=== PATIENT | female | born 1930 | race Caucasian/White ===

== ENCOUNTER 2016-12-07 17:11 | Inpatient (IN) | payer OTHER ==
--- NOTE | 2016-12-07 17:31 | PDOC ---
History of Present Illness - General History Source: Patient Exam Limitations: No Limitations - History of Present Illness Initial Comments: 12/07/16 18:28 Patient is a 86 year old female with a significant past medical history of DM, thyroid disease, hypertension and hyperlipidemia who presents to the ED with a complaint of abdominal pain, nausea and vomiting. Patient reports intermittent sharp stabbing abdominal pain localized to the lower/mid abdomen that radiates throughout the abdomen. Patient states that she is unable to pass any gas. Patient reports 4 episodes of vomiting during the night and multiple episodes today, non bilious non bloody. Patient notes that she had kielbasy and shredded cabbage at noon yesterday. She states that her last bowel movement was today she denies any constipation. She notes that she had diarrhea all last week and she has history of loose stools. She denies fever or chills. No prior abdominal surgery. Allergy - oxycodone, penicillin PCP - Dr. Piper <Asia Schwarz - Last Filed: 12/07/16 19:03> - General History Source: Patient Exam Limitations: No Limitations <Abby Laurent - Last Filed: 12/08/16 10:48> - General Chief Complaint: Pain, Acute Stated Complaint: ABDOMINAL PAIN/VOMITING Time Seen by Provider: 12/07/16 17:15 Past History <Asia Schwarz - Last Filed: 12/07/16 19:03> - Past Medical History Anemia: No Asthma: No Cancer: No Cardiac Disorders: No CVA: No COPD: No CHF: No Dementia: No Diabetes: Yes (DX 1989) GI Disorders: No Disorders: No HTN: Yes (DX 2003) Hypercholesterolemia: Yes (DX 2003) Liver Disease: No Seizures: No Thyroid Disease: Yes (HYPOTHYROIDISM) - Surgical History Abdominal Surgery: No Appendectomy: No Cardiac Surgery: No Cholecystectomy: No Lung Surgery: No Neurologic Surgery: No Orthopedic Surgery: Yes (EPIDURAL STERIOD INJECTION) - Psycho/Social/Smoking Cessation Hx Anxiety: No Suicidal Ideation: No Smoking History: Former smoker Have you smoked in the past 12 months: No If you are a former smoker, when did you quit?: 1989 Information on smoking cessation initiated: No Hx Alcohol Use: Yes (RARE) Drug/Substance Use Hx: No Substance Use Type: None Hx Substance Use Treatment: No <Abby Laurent - Last Filed: 12/08/16 10:48> - Past Medical History Allergies/Adverse Reactions: Allergies Allergy/AdvReac Type Severity Reaction Status Date / Time Penicillins Allergy Intermediate rash Verified 12/07/16 17:18 poison alexandria extract Allergy Intermediate Rash Verified 12/07/16 17:18 [Poison [place] Extract] Bee stings Allergy Severe Swelling Uncoded 02/07/15 13:55 TAE Allergy Mild Swelling Uncoded 02/07/15 13:55 Home Medications: Ambulatory Orders Aspirin [Aspir-Low] 81 mg PO DAILY 11/07/14 Multivitamin [Daily Vitamin] 1 each PO DAILY tablet 11/07/14 Atorvastatin Ca [Lipitor] 10 mg PO HS 12/07/16 Levothyroxine [Synthroid -] 25 mcg PO DAILY 12/07/16 Metformin HCl 2 tab PO ASDIR 12/07/16 Review of Systems - Review of Systems Able to Perform ROS?: Yes Comments:: 12/07/16 18:29 GENERAL/CONSTITUTIONAL: No: fever, chills, weakness, loss of appetite. HEAD, EYES, EARS, NOSE AND THROAT: No: change in vision, ear pain, discharge, sore throat, throat swelling. CARDIOVASCULAR: No: chest pain, lightheadedness, palpitations, syncope RESPIRATORY: No: cough, shortness of breath, wheezing, hemoptysis, stridor. GASTROINTESTINAL: +nausea, vomiting, abdominal pain No: diarrhea, rectal bleeding, constipation. GENITOURINARY: No: dysuria, hematuria, frequency, urgency, flank pain. MUSCULOSKELETAL: No: back pain, neck pain, joint pain, muscle swelling or pain SKIN: No: lesions, pallor, rash or easy bruising. NEUROLOGIC: No: headache, vertigo, paresthesias, weakness ENDOCRINE: No: unexplained weight gain or loss HEMATOLOGIC/LYMPHATIC: No: anemia, easy bleeding, swelling nodes <Asia Schwarz - Last Filed: 12/07/16 19:03> *Physical Exam - Vital Signs Last Vital Signs Temp Pulse Resp BP Pulse Ox 98.4 F 109 H 18 133/70 96 12/07/16 17:14 12/07/16 17:14 12/07/16 17:14 12/07/16 17:14 12/07/16 17:14 - Physical Exam Comments: 05/01/17 18:29 GENERAL: The patient is in no acute distress. HEAD: Normal with no signs of trauma. EYES: PERRLA, EOMI, sclera anicteric, conjunctiva clear. ENT: Ears normal, nares patent, oropharynx clear without exudates. Moist mucous membranes. NECK: Normal range of motion, supple without lymphadenopathy, JVD, or masses. LUNGS: Breath sounds equal, clear to auscultation bilaterally. No wheezes, and no crackles. HEART:Regular rate and rhythm, normal S1 and S2 without murmur, rub or gallop. ABDOMEN: +Lower abdominal tenderness upon palpation, +abdominal distention. Soft , normoactive bowel sounds. No guarding, no rebound. EXTREMITIES: +trace lower extremity edema. Normal range of motion. No clubbing or cyanosis. No erythema, or tenderness. NEUROLOGICAL: Cranial nerves II through XII grossly intact. Normal speech. No focal neurological deficits. MUSCULOSKELETAL: Back nontender to palpation, no CVA tenderness SKIN: Warm, Dry, normal turgor, no rashes or lesions noted. <Asia Schwarz - Last Filed: 12/07/16 19:03> - Vital Signs Last Vital Signs Temp Pulse Resp BP Pulse Ox 18 0/0 12/07/16 17:14 12/07/16 17:14 <Abby Laurent - Last Filed: 12/08/16 10:48> ED Treatment Course - LABORATORY CBC & Chemistry Diagram: 12/07/16 18:10 12/07/16 18:10 <Asia Schwarz - Last Filed: 12/07/16 19:03> - LABORATORY CBC & Chemistry Diagram: 12/08/16 06:15 12/08/16 06:15 <Abby Laurent - Last Filed: 12/08/16 10:48> Medical Decision Making - Medical Decision Making 12/07/16 17:31 A portion of this note was documented by scribe services under my direction. I have reviewed the details of the note, within reason, and agree with the documentation with the following case summary and management plan written by me. Nursing documentation reviewed and incorporated into medical decision making 12/07/16 19:00 This is an 86-year-old female with a history of diabetes, hypertension, hyperlipidemia, hypothyroidism who presents emergency department with a complaint of abdominal pain. Patient states that her symptoms began last evening. At that time she noted epigastric pain, subsequent to that she noted diffuse abdominal pain. She has had nausea and vomiting, particularly with attempting to have any oral intake. No fevers, no chills. Patient had a small bowel movement this morning. Patient denies prior abdominal surgery On examination: Patient has abdominal distention Lower abdominal tenderness to palpation. No involuntary guarding or rebound. Patient has trace lotion be edema. DD: colitis, enteritis, gastroenteritis, obstruction, gastritis, gastric ulcer, diverticulitis, ACS Will do labs Will give pain medications Will do xray (r/o SBO) Will do CT 12/07/16 19:02 Initially ordered for Morphine but pt has an anaphylactic response to oxycodone XRay demonstrates bowel gas in the center the the abdomen, paucity of gas else where, concerning for sbo Pt asked NOT to push herself to drink the contrast if it makes her very nauseaous despite Zofran 12/07/16 19:04 Laboratory Tests 12/07/16 18:10 WBC 9.9 D Hgb 12.7 Hct 38.7 Plt Count 443 H Neutrophils % 76.5 Lymphocytes % 14.0 D Pt signed out to Dr. Asif Pending CMP, CT abd and pelvis <Abby Laurent - Last Filed: 12/08/16 10:48> *DC/Admit/Observation/Transfer - Attestations Scribe Attestion: 12/07/16 18:30 Documentation prepared by ASHLEE Bauer, acting as medical record technician for Abby Laurent MD. <Asia Schwarz - Last Filed: 12/07/16 19:03> <Abby Laurent - Last Filed: 12/08/16 10:48> Diagnosis at time of Disposition: Small bowel obstruction - Discharge Dispostion Condition at time of disposition: Fair
[2016-12-07] MEDS ORDERED: morphine CARPU-JECT 4 MG/1 ML DISP.SYRIN IVPUSH ONE (18:10)
[2016-12-07] MEDS ORDERED: SODIUM CHLORIDE 1,000 ML IV STA (18:10)
[2016-12-07] MEDS ORDERED: ONDANSETRON 4 MG/2 ML VIAL IVPUSH ONE (18:10)
[2016-12-07] MEDS ORDERED: morphine CARPU-JECT 10 MG/1 ML DISP.SYRIN ONE ×2 (18:33→21:36)
[2016-12-07] MEDS ORDERED: ONDANSETRON 4 MG/2 ML VIAL ONE (18:33)
[2016-12-07 18:53] LABS: BASOPHIL 0.2 % (0-2.0); EOSINOPHIL 0.4 % (0-4.5); MCH 27.7 pg (25.7-33.7); MCHC 32.8 g/dl (32.0-36.0); MEAN CELL VOLUME 84.3 fl (80-96); MEAN PLT VOLUME 8.4 fl (7.5-11.1); NEUTROPHILS 76.5 % (42.8-82.8); PLATELET COUNT 443 K/MM3 (134-434); RDW 13.8 % (11.6-15.6); WHITE BLOOD COUNT 9.9 K/mm3 (4.0-10.8)
[2016-12-07 19:02] LABS: ALBUMIN 3.7 g/dl (3.5-5.0); ALK PHOS 46 U/L (32-92); AMYLASE 110 U/L (25-125); ANION GAP 11 (8-16); BILIRUBIN,TOTAL 0.7 mg/dl (0.2-1.0); CALCIUM 9.6 mg/dl (8.4-10.2); CO2 21 mmol/L (22-28); CREATININE 0.9 mg/dl (0.6-1.3); GLUCOSE,RANDOM 172 mg/dl (74-106); SGOT/AST 23 U/L (10-42); SGPT/ALT 16 U/L (10-40); TOT PROT 6.7 g/dl (6.4-8.3)
[2016-12-07 19:15] LABS: CPK(DFH) 69 IU/L (26-140)
--- NOTE | 2016-12-07 19:26 | PDOC ---
*Physical Exam - Vital Signs Last Vital Signs Temp Pulse Resp BP Pulse Ox 98.4 F 109 H 18 133/70 96 12/07/16 17:14 12/07/16 17:14 12/07/16 17:14 12/07/16 18:40 12/07/16 17:14 ED Treatment Course - LABORATORY CBC & Chemistry Diagram: 12/07/16 18:10 12/07/16 18:10 - ADDITIONAL ORDERS Additional order review: Laboratory Results 12/07/16 12/07/16 18:10 18:10 Sodium 136 Potassium 4.3 Chloride 104 Carbon Dioxide 21 L Anion Gap 11 BUN 13 Creatinine 0.9 Creat Clearance w eGFR 59.65 Random Glucose 172 H D Calcium 9.6 Total Bilirubin 0.7 D AST 23 D ALT 16 Alkaline Phosphatase 46 Creatine Kinase 69 Total Protein 6.7 Albumin 3.7 Total Amylase 110 12/07/16 18:10 RBC 4.60 MCV 84.3 MCHC 32.8 RDW 13.8 MPV 8.4 Neutrophils % 76.5 Lymphocytes % 14.0 D Monocytes % 8.9 Eosinophils % 0.4 Basophils % 0.2 - Medications Given in the ED: ED Medications Discontinued Medications Generic Name Dose Route Start Last Admin Trade Name Freq PRN Reason Stop Dose Admin Morphine Sulfate 2 mg 12/07/16 18:10 12/07/16 18:40 Morphine Injection - IVPUSH 12/07/16 18:11 Not Given ONCE ONE Ondansetron HCl 4 mg 12/07/16 18:10 12/07/16 18:40 Zofran Injection IVPUSH 12/07/16 18:11 4 mg ONCE ONE Administration Medical Decision Making - Medical Decision Making 12/07/16 19:26 The patient is signed out to me from Dr. Laurent. 86y F hx of DM, thyroid disease, htn, hl, presents with complaint of abdominal pain n/v. pts vitals noted for mld tachycardia abd xray possible obstructio pt awaiting CT, currently drinking contrast resting comfortably in no acute distress, mildly distended abdomen 12/07/16 20:38 CT c/w high grade partial SBO will admit for further management Will notify hospitliast service 12/07/16 21:[address] Olivarez requested NGT and possible transfer to [place] in case she needs surgery as has a virgin abdomen. 12/07/16 22:27 case dw LEI Smith agree with admission for further managemnt of SBO will admit under dr Smith service in med/surg 12/07/16 22:36 pt declines NGT at this time Case discussed in detail with admitting physician including history, physical exam and ancillary studies. Admitting physician has assumed care for the patient, will follow all pending diagnostics and will complete the evaluation and treatment. *DC/Admit/Observation/Transfer Diagnosis at time of Disposition: Small bowel obstruction - Discharge Dispostion Condition at time of disposition: Fair Admit: Yes
[2016-12-07 19:35] LABS: TROPONIN I (DFP) < 0.03 ng/ml (0.03-0.50)
[2016-12-07 19:52] LABS: URINE APPEARANCE Clear; URINE BILIRUBIN Negative (NEGATIVE); URINE BLOOD Negative (NEGATIVE); URINE GLUCOSE (UA) Negative (NEGATIVE); URINE KETONE Negative (NEGATIVE); URINE NITRITE Negative (NEGATIVE); URINE PROTEIN Negative (NEGATIVE); URINE UROBILINOGEN 0.2 E.U/dl (0.2-1.0)
[2016-12-07 19:57] LABS: URINE COLOR YELLOW; URINE LEUK ESTERASE 1+ (NEGATIVE)
[2016-12-07] MEDS ORDERED: morphine CARPU-JECT 2 MG/1 ML DISP.SYRIN IVPUSH ONE (21:35)
--- NOTE | 2016-12-07 21:40 | HP ---
CHIEF COMPLAINT: Abdomen Pain, Nausea & Vomiting PCP: Dr. Piper HISTORY OF PRESENT ILLNESS: This is a 86 y/o female with a past medical history of Hypertension, Diabetes, Hyperlipidemia, Hypothyroid. Who presents to the emergency department with abdominal pain with nausea and vomiting x today. Patient reports the quality of the pain as sharp, with cramping. She reports vomiting x2 undigested food. Patient reports having a small BM earlier in the day. Patient denies fever, chills, cough, dizziness, CP, diarrhea, dysuria ER course was notable for: (1) Abdominal Xray- Dilated Loops (2) CTAP- Partial high Grade SBO (3) Lipase 320 Recent Travel: None PAST MEDICAL HISTORY: See HPI PAST SURGICAL HISTORY: Hysterectomy L- shoulder Social History: Smoking: Former Alcohol: None Drugs: None Family History: Non-Contributory Allergies Penicillins Allergy (Intermediate, Verified 12/07/16 17:18) rash poison alexandria extract [Poison [place] Extract] Allergy (Intermediate, Verified 17:18) Rash Bee stings Allergy (Severe, Uncoded 02/07/15 13:55) Swelling TAE Allergy (Mild, Uncoded 02/07/15 13:55) Swelling HOME MEDICATIONS: Home Medications Medication Instructions Recorded Aspirin [Aspir-Low] 81 mg PO DAILY 11/07/14 Multivitamin [Daily Vitamin] 1 each PO DAILY tablet 11/07/14 Atorvastatin Ca [Lipitor] 10 mg PO HS 12/07/16 Levothyroxine [Synthroid -] 25 mcg PO DAILY 12/07/16 Metformin HCl 2 tab PO ASDIR 12/07/16 REVIEW OF SYSTEMS CONSTITUTIONAL: Absent: fever, chills, diaphoresis, generalized weakness, malaise, loss of appetite, weight change HEENT: Absent: rhinorrhea, nasal congestion, throat pain, throat swelling, difficulty swallowing, mouth swelling, ear pain, eye pain, visual changes CARDIOVASCULAR: Absent: chest pain, syncope, palpitations, irregular heart rate, lightheadedness , peripheral edema RESPIRATORY: Absent: cough, shortness of breath, dyspnea with exertion, orthopnea, wheezing, stridor, hemoptysis GASTROINTESTINAL:abdominal pain, abdominal distension, nausea, vomiting Absent: diarrhea, constipation, melena, hematochezia GENITOURINARY: Absent: dysuria, frequency, urgency, hesitancy, hematuria, flank pain, genital pain MUSCULOSKELETAL: Absent: myalgia, arthralgia, joint swelling, back pain, neck pain SKIN: Absent: rash, itching, pallor HEMATOLOGIC/IMMUNOLOGIC: Absent: easy bleeding, easy bruising, lymphadenopathy, frequent infections ENDOCRINE: Absent: unexplained weight gain, unexplained weight loss, heat intolerance, cold intolerance NEUROLOGIC: Absent: headache, focal weakness or paresthesias, dizziness, unsteady gait, seizure, mental status changes, bladder or bowel incontinence PSYCHIATRIC: Absent: anxiety, depression, suicidal or homicidal ideation, hallucinations. PHYSICAL EXAMINATION Vital Signs - 24 hr 12/07/16 12/07/16 17:14 18:40 Temperature 98.4 F Pulse Rate 109 H Respiratory 18 Rate Blood Pressure 133/70 133/70 O2 Sat by Pulse 96 Oximetry (%) GENERAL: Awake, alert, and fully oriented, in no acute distress. HEAD: Normal with no signs of trauma. EYES: Pupils equal, round and reactive to light, extraocular movements intact, sclera anicteric, conjunctiva clear. No lid lag. EARS, NOSE, THROAT: Dry mucous membranes. Ears normal, nares patent, oropharynx clear without exudates. NECK: Normal range of motion, supple without lymphadenopathy, JVD, or masses. LUNGS: Breath sounds equal, clear to auscultation bilaterally. No wheezes, and no crackles. No accessory muscle use. HEART: Regular rate and rhythm, normal S1 and S2 without murmur, rub or gallop. ABDOMEN: Soft, generalized tenderness, distended, hypoactive bowel sounds, no guarding, no rebound, no masses. No hepatomegaly or splenomegaly. MUSCULOSKELETAL: Normal range of motion at all joints. No bony deformities or tenderness. No CVA tenderness. UPPER EXTREMITIES: 2+ pulses, warm, well-perfused. No cyanosis. No clubbing. No peripheral edema. LOWER EXTREMITIES: 2+ pulses, warm, well-perfused. No calf tenderness. L > R Bilateral peripheral edema. NEUROLOGICAL: Cranial nerves II-XII intact. Normal speech. Normal gait. PSYCHIATRIC: Cooperative. Good eye contact. Appropriate mood and affect. SKIN: Warm, dry, normal turgor, no rashes or lesions noted, normal capillary refill. Laboratory Results - last 24 hr 3 12/07/16 12/07/16 12/07/16 18:10 18:10 18:10 WBC 9.9 D RBC 4.60 Hgb 12.7 Hct 38.7 MCV 84.3 MCHC 32.8 RDW 13.8 Plt Count 443 H MPV 8.4 Neutrophils % 76.5 Lymphocytes % 14.0 D Monocytes % 8.9 Eosinophils % 0.4 Basophils % 0.2 Sodium 136 Potassium 4.3 Chloride 104 Carbon Dioxide 21 L Anion Gap 11 BUN 13 Creatinine 0.9 Creat Clearance w eGFR 59.65 Random Glucose 172 H D Calcium 9.6 Total Bilirubin 0.7 D AST 23 D ALT 16 Alkaline Phosphatase 46 Creatine Kinase 69 Troponin I < 0.03 L Total Protein 6.7 Albumin 3.7 Total Amylase 110 Lipase 320 H Urine Color Urine Appearance Urine pH Ur Specific [place] Urine Protein Urine Glucose (UA) Urine Ketones Urine Blood Urine Nitrite Urine Bilirubin Urine Urobilinogen Ur Leukocyte Esterase 3 12/07/16 19:40 WBC RBC Hgb Hct MCV MCHC RDW Plt Count MPV Neutrophils % Lymphocytes % Monocytes % Eosinophils % Basophils % Sodium Potassium Chloride Carbon Dioxide Anion Gap BUN Creatinine Creat Clearance w eGFR Random Glucose Calcium Total Bilirubin AST ALT Alkaline Phosphatase Creatine Kinase Troponin I Total Protein Albumin Total Amylase Lipase Urine Color Yellow Urine Appearance Clear Urine pH 5.0 Ur Specific [place] <= 1.005 Urine Protein Negative Urine Glucose (UA) Negative Urine Ketones Negative Urine Blood Negative Urine Nitrite Negative Urine Bilirubin Negative Urine Urobilinogen 0.2 e.u/dl Ur Leukocyte Esterase 1+ H ASSESSMENT/PLAN: This is a 86 y/o female with a PMHx of: DM, HTN, HLD, Hypothyroid. Presents to the ED with abdominal pain, nausea and vomiting. Admitted for Small Bowel Obstruction for further evaluation of their emergent condition. Plan: 1. GI: Small Bowel Obstruction - Less likely secondary to adhesions - CTAP- Partial High Grade SBO - Abdominal Xray- Dilated loops - Appreciate Surgical Consult - NGT placement- per RN, patient adamantly declined - NPO - Continue gentle IVF - Monitor CBC, BMP - Add on labs for pre-op clearance - Check lactic acid - Morphine Sulfate- prn - Zofran prn - Monitor vitals 2. Endo: Diabetes Mellitus - Uncontrolled - Monitor BGMs - ISS - Monitor renal function 3. Card: Hypertension/ HLD - Controlled - Monitor BP - Continue Lipitor 4. Hypothyroidism - TSH in am - Continue home med 5. FEN - NS@60cc/hr - Replete lytes prn - NPO 6. DVT/PPI Prophylaxis - OOB - SCDs - Lovenox SQ - Protonix Code Status: Patient is a Full Code Dispo: Continue Inpatient Care Problem List - Problem (1) Small bowel obstruction Code(s): K56.69 - OTHER INTESTINAL OBSTRUCTION (2) Nausea & vomiting Code(s): R11.2 - NAUSEA WITH VOMITING, UNSPECIFIED (3) HTN (hypertension) Code(s): I10 - ESSENTIAL (PRIMARY) HYPERTENSION (4) HLD (hyperlipidemia) Code(s): E78.5 - HYPERLIPIDEMIA, UNSPECIFIED (5) Hypothyroid Code(s): E03.9 - HYPOTHYROIDISM, UNSPECIFIED (6) DVT prophylaxis Code(s): RGL4506 - Visit type - Emergency Visit Emergency Visit: Yes ED Registration Date: 12/07/16 Care time: The patient presented to the Emergency Department on the above date and was hospitalized for further evaluation of their emergent condition. - New Patient This patient is new to me today: Yes Date on this admission: 12/07/16 - Critical Care Critical Care patient: No
[2016-12-07] MEDS ORDERED: DEXTROSE 5%-0.45% SALINE 1,000 ML IV SCH (21:45)
--- NOTE | 2016-12-07 21:47 | CONSULT ---
Consult Consult Specialty:: Surgery Reason for Consultation:: SBO - History of Present Illness Chief Complaint: Abdominal pain History of Present Illness: 86 y.o. female presented to ED at [facility] for one day history of diffuse abdominal pain associated with multiple episodes of vomiting. Patient denies any past abdominal surgery, recent weight loss, or constipation. Admits to having chronic diarrhea. Had colonoscopy in 2015 with unremarkable findings according to the patient. - History Source History Provided By: Patient Limitations to Obtaining History: No Limitations - Past Medical History Endocrine: Yes: Diabetes Mellitus, Hypothyroidism - Alcohol/Substance Use Hx Alcohol Use: Yes (RARE) - Smoking History Smoking history: Former smoker Have you smoked in the past 12 months: No If you are a former smoker, when did you quit?: 1989 Home Medications - Allergies Allergies/Adverse Reactions: Allergies Allergy/AdvReac Type Severity Reaction Status Date / Time Penicillins Allergy Intermediate rash Verified 12/07/16 17:18 poison alexand[place] extract Allergy Intermediate Rash Verified 12/07/16 17:18 [Poison [place] Extract] Bee stings Allergy Severe Swelling Uncoded 02/07/15 13:55 TAE Allergy Mild Swelling Uncoded 02/07/15 13:55 - Home Medications Home Medications: Ambulatory Orders Aspirin [Aspir-Low] 81 mg PO DAILY 11/07/14 Multivitamin [Daily Vitamin] 1 each PO DAILY tablet 11/07/14 Atorvastatin Ca [Lipitor] 10 mg PO HS 12/07/16 Levothyroxine [Synthroid -] 25 mcg PO DAILY 12/07/16 Metformin HCl 2 tab PO ASDIR 12/07/16 Review of Systems - Review of Systems Cardiovascular: reports: No Symptoms Respiratory: reports: No Symptoms Gastrointestinal: reports: Abdominal Pain, Vomiting Physical Exam Vital Signs: Vital Signs Temperature 98.4 F 12/07/16 17:14 Pulse Rate 109 H 12/07/16 17:14 Respiratory Rate 18 12/07/16 17:14 Blood Pressure 133/70 12/07/16 18:40 O2 Sat by Pulse Oximetry (%) 96 12/07/16 17:14 Constitutional: Yes: Well Nourished, Mild Distress Eyes: Yes: Conjunctiva Clear HENT: Yes: Normocephalic Neck: Yes: Supple Cardiovascular: Yes: Regular Rate and Rhythm Gastrointestinal: Yes: Abdomen, Obese, Distention, Tenderness (diffuse on deep palpation, no rebound tenderness), Tenderness, Epigastrium Labs: CBC, BMP 12/07/16 18:10 12/07/16 18:10 Imaging - Results X-ray: Report Reviewed, Image Reviewed Cat Scan: Report Reviewed, Image Reviewed Problem List - Problems (1) Small bowel obstruction Assessment/Plan: Admit for NGT decompression, fluid resuscitation, serial abdominal exams, and FUA's DVT & GI prophylaxis Code(s): K56.69 - OTHER INTESTINAL OBSTRUCTION
[2016-12-07] MEDS ORDERED: morphine CARPU-JECT 4 MG/1 ML DISP.SYRIN IVPUSH PRN (21:48)
[2016-12-07 23:09] LABS: INR 0.97 (0.82-1.09); PROTHROMBIN TIME (PATIENT) 10.9 SEC (10.2-13.0)
[2016-12-07 23:26] LABS: URINE RBC 0-2 /hpf (0-3)
[2016-12-07 23:27] LABS: URINE BACTERIA FEW /hpf (NEGATIVE)
[2016-12-08 02:27] VITALS: BMI 30.6
[2016-12-08] MEDS ORDERED: ONDANSETRON 4 MG/2 ML VIAL IVPUSH PRN (06:00)
[2016-12-08] MEDS ORDERED: DEXTROSE 5%-0.45% SALINE 1,000 ML IV SCH (07:26)
[2016-12-08] MEDS ORDERED: morphine CARPU-JECT 2 MG/1 ML DISP.SYRIN IVPUSH PRN (07:27)
[2016-12-08] MEDS ORDERED: LACTATED RINGERS SOLUTION 500 ML IV ONE (07:35)
[2016-12-08 07:47] LABS: BASOPHIL 0.4 % (0-2.0); EOSINOPHIL 0.5 % (0-4.5); MCHC 32.8 g/dl (32.0-36.0); MEAN CELL VOLUME 85.4 fl (80-96); NEUTROPHILS 67.2 % (42.8-82.8); PLATELET COUNT 357 K/MM3 (134-434); RDW 15.1 % (11.6-15.6); WHITE BLOOD COUNT 8.1 K/mm3 (4.0-10.0)
[2016-12-08 08:12] LABS: CALCIUM 9.3 mg/dL (8.5-10.1)
[2016-12-08 08:16] LABS: COCKROFT - GAULT 55.743; CREATININE 0.9 mg/dL (0.55-1.02)
--- NOTE | 2016-12-08 10:33 | PN ---
Physical Exam: SUBJECTIVE: Patient seen and examined. NGT placed this AM by surgery, pt was unaware of reason for it. She says this morning it hurt to bed down and she had cramps, now its less. OBJECTIVE: Vital Signs Period Temp Pulse Resp BP Sys/Contreras Pulse Ox Last 24 Hr 98.5 F 94 20 127/79 PE Neuro: alert, awake, cn 2-12intact HEENT: + NGT with light brown red drainage Pulm: CTAB CV: s1 s2 rrr no mrg Abd:Diffuse abd tenderness w/ palpation, +distention, + BS Ext: warm, no le edema Skin: in tact Laboratory Results - last 24 hr 12/08/16 12/08/16 06:15 06:15 WBC 8.1 RBC 4.30 Hgb 12.0 Hct 36.7 MCV 85.4 MCHC 32.8 RDW 15.1 Plt Count 357 MPV 8.0 Neutrophils % 67.2 Lymphocytes % 21.4 Monocytes % 10.5 H Eosinophils % 0.5 Basophils % 0.4 Sodium 138 Potassium 4.6 Chloride 102 Carbon Dioxide 23 Anion Gap 13 BUN 11 Creatinine 0.9 Random Glucose 136 H Calcium 9.3 12/07/16 12/07/16 12/07/16 18:10 18:10 22:00 Lactic Acid 1.268 Creatine Kinase 69 Troponin I < 0.03 L Lipase 320 H Active Medications Generic Name Dose Route Start Last Admin Trade Name Freq PRN Reason Stop Dose Admin Lactated Ringer's 1,000 mls @ 125 mls/hr 12/08/16 08:35 Lactated Ringers Solution IV ASDIR [facility] Morphine Sulfate 2 mg 12/08/16 07:27 Morphine Injection - IVPUSH Q6H PRN PAIN Ondansetron HCl 4 mg 12/08/16 06:00 Zofran Injection IVPUSH Q6H PRN NAUSEA AND/OR VOMITING Assessment: 86 year old female with a PMHx of: DM II, HTN, HLD, Hypothyroid admitted with SBO Plan: 1. High grade partial SBO - NGT - Follow up FUA later this AM - Continue LR - Serial abd xrays - NPO - Surgery seeing 2. Mild Pancreatitis - LR 125cc/hr - Insert kenyon - Trend lipase 3. DM II - ISS, BGM ACHS while NPO - Hold PO antidiabetics - Hgba1c 4. Hypothyroidism - Give 15mcg synthroid IV daily while NPO - Check tsh - Restart synthroid 25mcg once eating 5. HTN - Currently stable - Hold lisinopril 10mg daily 6. HLD - Hold Lipitor 40m hs Visit type - Emergency Visit Emergency Visit: Yes ED Registration Date: 12/08/16 Care time: The patient presented to the Emergency Department on the above date and was hospitalized for further evaluation of their emergent condition. - New Patient This patient is new to me today: Yes Date on this admission: 12/08/16 - Critical Care Critical Care patient: No
[2016-12-08] MEDS: LACTATED RINGERS SOLUTION 1,000 ML IV SCH ×3 (12:31→21:21)
[2016-12-08] MEDS: LEVOTHYROXINE SODIUM 100 MCG VIAL IM SCH (12:31)
--- NOTE | 2016-12-08 17:55 | PN ---
Progress Note (short form) - Note Progress Note: Patient refused NGT last night Ngt inserted with about 200 cc faintly bilious fluid FUA today showed improvement of bowel distention with air in the colon Patient also states she passed gas this afternoon Abdomen is less distented and more soft, but still diffusely tender. A: Improving SBO P: no surgical intervention planned at this time continue NGT decompression, IVF, GI, & DVT prophylaxis Problem List - Problems (1) Small bowel obstruction Code(s): K56.69 - OTHER INTESTINAL OBSTRUCTION
[2016-12-08] MEDS: HEPARIN NA (PORCINE) 5,000 UNITS/ML 1ML VIAL SQ SCH (21:21)
[2016-12-08] MEDS: PANTOPRAZOLE SODIUM 40 MG/100 ML PRE-DOCKED IVPB SCH (21:21)
[2016-12-08] MEDS ORDERED: PANTOPRAZOLE SODIUM 40 MG in SODIUM CHLORIDE 100 ML IVPB SCH (22:00)
--- NOTE | 2016-12-08 23:01 | EKG ---
Test Reason : Blood Pressure : / mmHG Vent. Rate : 108 BPM Atrial Rate : 108 BPM P-R Int : 158 ms QRS Dur : 078 ms QT Int : 314 ms P-R-T Axes : 060 -13 060 degrees QTc Int : 420 ms SINUS TACHYCARDIA NONSPECIFIC ST AND T WAVE ABNORMALITY ABNORMAL ECG NO PREVIOUS ECGS AVAILABLE Confirmed by TRAMAINE RAMIREZ, ANTOINE ([id number]) on 12/08/2016 11:01:19 PM Referred By: ROMY Confirmed By:ANTOINE REDD MD
[2016-12-09 08:26] LABS: ANION GAP 10 (8-16); CALCIUM 8.5 mg/dL (8.5-10.1); CO2 27 mmol/L (21-32); GLUCOSE,RANDOM 111 mg/dL (74-106)
[2016-12-09 08:39] LABS: ALK PHOS 54 U/L (45-117); BILIRUBIN,TOTAL 0.4 mg/dL (0.2-1.0); COCKROFT - GAULT 71.6635; CREATININE 0.7 mg/dL (0.55-1.02); SGOT/AST 22 U/L (15-37); SGPT/ALT 17 U/L (12-78); THYROID STIMULATING HORMONE 3.82 uIU/ml (0.358-3.74)
[2016-12-09] MEDS ORDERED: PT OWN MED DRAWER 7, Y5N ONE (11:35)
[2016-12-09] MEDS: LEVOTHYROXINE SODIUM 100 MCG VIAL IM SCH (11:52)
[2016-12-09] MEDS: PANTOPRAZOLE SODIUM 40 MG/100 ML PRE-DOCKED IVPB SCH ×2 (11:52→22:19)
[2016-12-09] MEDS: HEPARIN NA (PORCINE) 5,000 UNITS/ML 1ML VIAL SQ SCH ×2 (11:53→22:19)
--- NOTE | 2016-12-09 14:26 | PN ---
Progress Note (short form) - Note Progress Note: Hospital day #3 Alert. Resting in position of comfort. States she passed gas yesterday/last night and early this morning. NGT remains on intermittent low wall canister suction. Denies n/v/f/c, CP, SOB or bowel movement. Last Vital Signs Temp Pulse Resp BP Pulse Ox 98.5 F 98 H 18 158/80 98 12/09/16 12:00 12/09/16 12:00 12/09/16 12:00 12/09/16 12:00 12/09/16 09:00 BMP 12/09/16 06:30 AXR 12/09: Compared to previous study, contrast is seen in the colon consistent with resolving PE Gen: alert. nad. Nose: ngt 450 mL (bilious) Abd: obese body habitus, significantly less distended compared to yesterdays exam. Soft. Bowel sounds absent. Mild (diffuse) tenderness. No rebound/guarding or rigidity Problem List - Problems (1) Small bowel obstruction Assessment/Plan: 86 yo female admitted with high grade sbo ([place] abdomen). Currently, patient is non-toxic appearing, resting comfortably. SBO resolving. NPO/IVF GI/DVT PPX OOB and ambulate Cont NGT decompression Cont conservative management at this time Code(s): K56.69 - OTHER INTESTINAL OBSTRUCTION
[2016-12-09] MEDS: LACTATED RINGERS SOLUTION 1,000 ML IV SCH ×2 (16:09→17:56)
--- NOTE | 2016-12-09 17:38 | PN ---
Physical Exam: SUBJECTIVE: Patient seen and examined. She still has abd tenderness, she is passing a small amount of gas. OBJECTIVE: Vital Signs Period Temp Pulse Resp BP Sys/Contreras Pulse Ox Last 24 Hr 98.5 F-99 F 65-98 18-20 143-158/57-87 98-98 PE Neuro: alert, awake, cn 2-12intact HEENT: + NGT brown output Pulm: CTAB CV: s1 s2 rrr no mrg Abd: Diffuse abd tenderness w/ palpation, +distention-improved, soft , + hypoactive BS : kenyon Ext: warm, no le edema Laboratory Results - last 24 hr 12/09/16 12/09/16 06:30 06:30 Sodium 142 Potassium 3.8 Chloride 105 Carbon Dioxide 27 Anion Gap 10 BUN 9 Creatinine 0.7 D Creat Clearance w eGFR > 60 Random Glucose 111 H Hemoglobin A1c % 7.3 H D Calcium 8.5 Total Bilirubin 0.4 AST 22 ALT 17 Alkaline Phosphatase 54 Total Protein 6.0 L Albumin 3.0 L Lipase 252 TSH 3.82 H D Active Medications Generic Name Dose Route Start Last Admin Trade Name Freq PRN Reason Stop Dose Admin Heparin Sodium (Porcine) 5,000 unit 12/08/16 22:00 12/09/16 11:53 Heparin - SQ 5,000 unit BID KAR Administration Lactated Ringer's 1,000 mls @ 83 mls/hr 12/08/16 17:45 12/09/16 16:09 Lactated Ringers Solution IV 83 mls/hr ASDIR KAR Administration Levothyroxine Sodium 15 mcg 12/08/16 11:00 12/09/16 11:52 Synthroid Injection - IM 15 mcg DAILY KAR Administration Morphine Sulfate 2 mg 12/08/16 07:27 Morphine Injection - IVPUSH Q6H PRN PAIN Ondansetron HCl 4 mg 12/08/16 06:00 Zofran Injection IVPUSH Q6H PRN NAUSEA AND/OR VOMITING Pantoprazole Sodium 40 mg 12/08/16 22:00 12/09/16 11:52 Protonix 40mg Ivpb (Pre-Docked) IVPB 40 mg BID KAR Administration Assessment: 86 year old female with a PMHx of: DM II, HTN, HLD, Hypothyroid admitted with SBO. Plan: 1. High grade partial SBO - Cont NGT - FUA shows sbo resolving - NPO - Surgery seeing 2. Mild Pancreatitis - Lipase wnl - Decrease LR 83cc/hr 3. DM II, uncontrolled - ISS, BGM ACHS while NPO - Hold PO antidiabetics - Hgba1c 7.3 4. Hypothyroidism - 15mcg synthroid IV daily while NPO - Tsh elevated - Resume 25mcg when tolerating PO 5. HTN - Currently stable - Hold lisinopril 10mg daily 6. HLD - Hold Lipitor 40m hs Visit type - Emergency Visit Emergency Visit: Yes ED Registration Date: 12/08/16 Care time: The patient presented to the Emergency Department on the above date and was hospitalized for further evaluation of their emergent condition. - New Patient This patient is new to me today: No - Critical Care Critical Care patient: No
[2016-12-09] MEDS ORDERED: LEVOTHYROXINE SODIUM 100 MCG VIAL IM SCH ×2 (17:41→18:00)
--- NOTE | 2016-12-09 18:29 | PN ---
Progress Note (short form) - Note Progress Note: Surgery Attending Patient continues to pass flatus. No BM. c/o pressure/headache Afebrile, VSS Abd: soft, decreased tenderness, NGT drainage = 650 light green FUA = contrast seen in rectum, decreased sb dilatation A: resolving SBO, P: may have ice chips, resume p.o. meds continue NGT decompression, possible clamping in am Problem List - Problems (1) Small bowel obstruction Code(s): K56.69 - OTHER INTESTINAL OBSTRUCTION
[2016-12-09] MEDS: LISINOPRIL 10 MG TABLET (FP) PO SCH (18:41)
[2016-12-10] MEDS: LACTATED RINGERS SOLUTION 1,000 ML IV SCH ×2 (05:10→17:53)
[2016-12-10] MEDS: LEVOTHYROXINE SODIUM 100 MCG VIAL IM SCH (06:40)
[2016-12-10 07:44] LABS: CALCIUM 8.6 mg/dL (8.5-10.1); COCKROFT - GAULT 83.6145; CREATININE 0.6 mg/dL (0.55-1.02); MAGNESIUM 1.5 mg/dL (1.8-2.4); PHOSPHOROUS 2.9 mg/dL (2.5-4.9)
--- NOTE | 2016-12-10 08:27 | PN ---
Progress Note (short form) - Note Progress Note: Surgery- Dr. Olivarez Patient seen and examined. Patient states she continues to feel better and had a BM this morning. Her pain is improving. She is continuing to pass gas. She had some ice chips last night and denies any nausea or vomiting. Last Vital Signs Temp Pulse Resp BP Pulse Ox 98.8 F 91 H 20 153/73 98 12/10/16 06:00 12/10/16 06:00 12/10/16 06:00 12/10/16 06:00 12/09/16 09:00 CBC, BMP 12/08/16 06:15 12/10/16 06:10 NGT output 100 ml overnight per nursing Exam: Gen: NAD, pleasant and cooperative ENT: NGT in place Abd: soft, nondistended, minimally tender Problem List - Problems (1) Small bowel obstruction Assessment/Plan: Patient pain improving, passing flatus and had BM, denies N/V, sbo resolving NPO excpet PO meds/ice chips, IVF clamp NGT x4 hours and check residuals DVT prophylaxis discussed with Dr. Olivarez Code(s): K56.69 - OTHER INTESTINAL OBSTRUCTION
[2016-12-10] MEDS: PANTOPRAZOLE SODIUM 40 MG/100 ML PRE-DOCKED IVPB SCH ×2 (10:05→21:16)
[2016-12-10] MEDS: LISINOPRIL 10 MG TABLET (FP) PO SCH (10:05)
[2016-12-10] MEDS: HEPARIN NA (PORCINE) 5,000 UNITS/ML 1ML VIAL SQ SCH ×2 (10:05→21:16)
--- NOTE | 2016-12-10 12:07 | PN ---
Physical Exam: SUBJECTIVE: Patient seen and examined. She denies nausea/vomiting or shortness of breath.] Patient states she continues to feel better and had a BM this morning, +flatus. Tolerating ice chips OBJECTIVE: Abdomen with hyperactive bowel sounds soft non tender abdomen Vital Signs Period Temp Pulse Resp BP Sys/Contreras Pulse Ox Last 24 Hr 97.9 F-98.8 F 65-92 16-20 147-158/73-91 98 GENERAL: The patient is awake, alert, and fully oriented, in no acute distress. HEAD: Normal with no signs of trauma. NECK: Trachea midline, full range of motion, supple. LUNGS: Breath sounds equal, clear to auscultation bilaterally, no wheezes, no crackles, no accessory muscle use. HEART: Regular rate and rhythm, ABDOMEN: hyperactive bowel sounds, soft non tender abdomen, mildly distended EXTREMITIES: no edema. NEUROLOGICAL: Normal speech, gait not observed. PSYCH: Normal mood, normal affect. SKIN: Warm, dry, normal turgor, no rashes or lesions noted Laboratory Results - last 24 hr 12/10/16 06:10 Sodium 141 Potassium 3.9 Chloride 103 Carbon Dioxide 27 Anion Gap 11 BUN 6 L D Creatinine 0.6 Random Glucose 105 Calcium 8.6 Phosphorus 2.9 Magnesium 1.5 L Active Medications Generic Name Dose Route Start Last Admin Trade Name Freq PRN Reason Stop Dose Admin Heparin Sodium (Porcine) 5,000 unit 12/08/16 22:00 12/10/16 10:05 Heparin - SQ 5,000 unit BID KAR Administration Lactated Ringer's 1,000 mls @ 83 mls/hr 12/08/16 17:45 12/10/16 05:10 Lactated Ringers Solution IV 83 mls/hr ASDIR KAR Administration Levothyroxine Sodium 15 mcg 12/10/16 07:00 12/10/16 06:40 Synthroid Injection - IM 15 mcg ACBK KAR Administration Lisinopril 10 mg 12/09/16 18:45 12/10/16 10:05 Prinivil PO 10 mg DAILY KAR Administration Morphine Sulfate 2 mg 12/08/16 07:27 Morphine Injection - IVPUSH Q6H PRN PAIN Ondansetron HCl 4 mg 12/08/16 06:00 Zofran Injection IVPUSH Q6H PRN NAUSEA AND/OR VOMITING Pantoprazole Sodium 40 mg 12/08/16 22:00 12/10/16 10:05 Protonix 40mg Ivpb (Pre-Docked) IVPB 40 mg BID KAR Administration ASSESSMENT/PLAN: Patient is an 86 year old female with a past medical history of diabetes, hypertension, hyperlipidemia and hypothyroidism. She was admitted on 12/08/2016 with a small bowel obstruction. GI: SBO - improving Assessment/Plan: NGT with minimal drainage abdominal xray 12/09 shows SBO with improvement Follow abdominal xrays NPO with ice chips as tolerated Surgery following - advance diet as per surgery Endocrine: Diabetes type 2 Assessment/Plan: Hgba1c 7.3, hold anti diabetic meds secondary to NPO status Monitor capillary glucose Hypothyroidism Assessment/Plan: synthroid IV daily while NPO Monitor TSH Cardiology: Hypertension: Monitor on Lisinopril 10mg daily Hyperlipidemia: Assessment/Plan: Hold Lipitor 40m hs for now while NPO F.E.N. Fluids: LR @ 83 Electrolytes: monitor BMP Nutrition: NPO/ice chips Prophylaxis: GI: Pronix BID DVT: Heparin BID
--- NOTE | 2016-12-10 19:36 | PN ---
Problem List - Problems (1) Small bowel obstruction Code(s): K56.69 - OTHER INTESTINAL OBSTRUCTION
[2016-12-11] MEDS ORDERED: PT OWN MED DRAWER 7, Y5N ONE ×2 (06:47→09:39)
[2016-12-11] MEDS: LEVOTHYROXINE SODIUM 100 MCG VIAL IM SCH ×2 (06:52→06:55)
[2016-12-11] MEDS: LACTATED RINGERS SOLUTION 1,000 ML IV SCH (06:52)
--- NOTE | 2016-12-11 08:01 | PN ---
Progress Note (short form) - Note Progress Note: Resting comfortably without complaint. Had 2 bowel movements yesterday. Tolerating ice chips. She is voiding spontaneously. Continues to pass flatus. She has gotten oob and ambulates hallway unassisted. AVSS. Afebrile. Gen: alert. nad. Abd: soft. NT. ND. + bowel sounds Problem List - Problems (1) Small bowel obstruction Assessment/Plan: PSBO completely resolved. Start patient on FULL clears and advance as tolerated. Cont to ambulate hallways. Once patient tolerates a regular diet can dc home No surgical intervention. Code(s): K56.69 - OTHER INTESTINAL OBSTRUCTION
[2016-12-11 08:23] LABS: BASOPHIL 0.9 % (0-2.0); EOSINOPHIL 2.3 % (0-4.5); MCH 28.2 pg (25.7-33.7); MEAN CELL VOLUME 85.5 fl (80-96); MEAN PLT VOLUME 8.1 fl (7.5-11.1); NEUTROPHILS 63.2 % (42.8-82.8); PLATELET COUNT 335 K/MM3 (134-434); RDW 14.5 % (11.6-15.6); WHITE BLOOD COUNT 7.3 K/mm3 (4.0-10.0)
[2016-12-11] MEDS: HEPARIN NA (PORCINE) 5,000 UNITS/ML 1ML VIAL SQ SCH (09:48)
[2016-12-11] MEDS: PANTOPRAZOLE SODIUM 40 MG/100 ML PRE-DOCKED IVPB SCH (09:49)
[2016-12-11] MEDS: LISINOPRIL 10 MG TABLET (FP) PO SCH (09:49)
[2016-12-11 11:43] LABS: ALBUMIN 2.9 g/dl (3.4-5.0); ANION GAP 14 (8-16); BILIRUBIN,TOTAL 0.5 mg/dL (0.2-1.0); CALCIUM 8.6 mg/dL (8.5-10.1); CO2 25 mmol/L (21-32); COCKROFT - GAULT 71.6635; CREATININE 0.7 mg/dL (0.55-1.02); GLUCOSE,RANDOM 86 mg/dL (74-106); SGOT/AST 22 U/L (15-37); SGPT/ALT 16 U/L (12-78); TOT PROT 5.9 g/dl (6.4-8.2)
[2016-12-11 11:44] LABS: ALK PHOS 57 U/L (45-117)
[2016-12-11 15:19] VITALS: BP 148/70; PULSE 76; TEMP 98.3
--- NOTE | 2016-12-11 16:18 | DS ---
Physical Exam: SUBJECTIVE: Patient seen and examined. She denies any abdominal pain, nausea or vomiting. She is tolerating ice chips, no difficulty urinating. She has +flatus and had a normal BM today, no diarrhea. OBJECTIVE: Patient is resting and ambulating without complaint. Had 2 bowel movements yesterday and had one today, she is tolerating ice chips As per surgery note, pt can be discharge once she tolerates a regular diet Vital Signs Period Temp Pulse Resp BP Sys/Contreras Pulse Ox Last 24 Hr 97.9 F-98.4 F 76-91 18-20 138-153/60-78 96-98 PHYSICAL EXAM GENERAL: The patient is awake, alert, and fully oriented, in no acute distress. HEAD: Normal with no signs of trauma. NECK: Trachea midline, full range of motion, supple. LUNGS: Breath sounds equal, clear to auscultation bilaterally, no wheezes, no crackles, no accessory muscle use. HEART: Regular rate and rhythm, ABDOMEN: hyperactive bowel sounds, soft non tender abdomen, mildly distended EXTREMITIES: no edema. NEUROLOGICAL: Normal speech, gait not observed. PSYCH: Normal mood, normal affect. SKIN: Warm, dry, normal turgor, no rashes or lesions noted LABS Laboratory Results - last 24 hr 12/11/16 12/11/16 06:30 06:30 WBC 7.3 RBC 3.88 Hgb 11.0 Hct 33.2 MCV 85.5 MCHC 33.0 RDW 14.5 Plt Count 335 MPV 8.1 Neutrophils % 63.2 Lymphocytes % 25.3 Monocytes % 8.3 Eosinophils % 2.3 D Basophils % 0.9 Sodium 142 Potassium 3.9 Chloride 103 Carbon Dioxide 25 Anion Gap 14 BUN 6 L Creatinine 0.7 Creat Clearance w eGFR > 60 Random Glucose 86 Calcium 8.6 Total Bilirubin 0.5 D AST 22 ALT 16 Alkaline Phosphatase 57 Total Protein 5.9 L Albumin 2.9 L HOSPITAL COURSE: Date of Admission:12/08/16 Date of Discharge: 12/11/16 Patient is an 86 year old female with a past medical history of diabetes, hypertension, hyperlipidemia and hypothyroidism. She was admitted on 12/08/2016 with a small bowel obstruction. GI: SBO - resolving/improving Assessment/Plan: NGT removed, abdominal xray 12/09 shows SBO with improvement Tolerating full liquid diet Surgery following - advance diet as per surgery If tolerates regular diet can go home and follow up with Dr. Olivarez. Endocrine: Diabetes type 2 Assessment/Plan: Hgba1c 7.3, continue anti diabetic meds Monitor capillary glucose Will need to follow up with PCP as outpatient Hypothyroidism Assessment/Plan: Synthroid daily Monitor TSH Cardiology: Hypertension: Monitor on Lisinopril 10mg daily Hyperlipidemia: Assessment/Plan: on home Lipitor 40mg F.E.N. Fluids: full liquid intake sufficient, no IVF Electrolytes: monitor BMP Nutrition: full liquids Disposition: d/c once able to tolerate regular diet. Will need close GI follow up on discharge. Full Code Discharge Summary Reason For Visit: SMALL BOWEL OBSTRUCTION Current Active Problems DVT prophylaxis (Acute) HLD (hyperlipidemia) (Acute) HTN (hypertension) (Acute) Hypothyroid (Acute) Nausea & vomiting (Acute) Small bowel obstruction (Acute) Condition: Improved - Instructions Disposition: HOME - Home Medications Comprehensive Discharge Medication List: Ambulatory Orders Aspirin [Aspir-Low] 81 mg PO DAILY 11/07/14 Multivitamin [Daily Vitamin] 1 each PO DAILY tablet 11/07/14 Atorvastatin Ca [Lipitor] 10 mg PO HS 12/07/16 Levothyroxine [Synthroid -] 25 mcg PO DAILY 12/07/16 Metformin HCl 2 tab PO ASDIR 12/07/16
[2016-12-12] MEDS ORDERED: PANTOPRAZOLE 40 MG TABLET (FP) PO SCH (10:00)
== END 2016-12-11 19:20 | disposition home or self-care (01) | DRG 388 ==
LOC: FER 17:11 → JERBED 12-08 01:15 → J8W 12-08 01:32
PROVIDERS: ADMIT Internal Medicine; ATTEND Nurse Practitioner Family
PROC: 0D9670Z Drainage of Stomach with Drainage Device, Via Natural or Artificial Opening (ICD-10-PCS; principal; 2016-12-08)
DX: K56.69 Other intestinal obstruction (principal); K85.90 Acute pancreatitis without necrosis or infection, unspecified; I10 Essential (primary) hypertension; E78.5 Hyperlipidemia, unspecified; E03.9 Hypothyroidism, unspecified; Z87.891 Personal history of nicotine dependence; E11.65 Type 2 diabetes mellitus with hyperglycemia
CPT/HCPCS: 36415; 71020-TC; 74020-TC; 74177-TC; 80048; 80053; 81003; 81015; 82150; 82550; 83036; 83605; 83690; 83735; 84100; 84443; 84484; 85025; 85610; 86850; 86900; 86901; 87086; 93005; 99283-25; J1644

== ENCOUNTER 2017-07-02 11:45 | Inpatient (IN) | payer OTHER ==
--- NOTE | 2017-07-02 12:33 | PDOC ---
History of Present Illness - General History Source: Patient Exam Limitations: No Limitations - History of Present Illness Initial Comments: 07/02/17 13:15 The patient is a 87 year old female, with a significant past medical history of diabetes, hypothyroidism, hypertension, and hyperlipidemia, who presents to the emergency department with constipation and abdominal pain for approximately 2 days. The patient reports she has been unable to have a bowel movement or pass gas for 2 days. Patient reports associated diffuse abdominal pain, bloating, and abdominal distension, but denies any nausea, vomiting, diarrhea, melena, or hematochezia. Patient reports she has only been able to drink tea earlier today. Patient states she had similar symptoms earlier this year, where she had an NG tube inserted to relieve her symptoms. Patient reports Dr. Olivarez advised if her symptoms returned that she present to the ER for further evaluation. She denies any fever, chills, dizziness or lightheadedness. She denies any dysuria, hematuria, frequency, or urgency. She denies any recent travel or sick contacts. Allergies: Penicillins Past Surgical History: None reported Social History: Former smoker. Social ETOH use. No recreational drug use. <Milton Cade - Last Filed: 07/02/17 19:13> <Bowen Rogers - Last Filed: 07/02/17 19:29> - General Chief Complaint: Constipation Stated Complaint: (PCP SENT) Time Seen by Provider: 07/02/17 12:25 Past History <Milton Cade - Last Filed: 07/02/17 19:13> - Past Medical History Anemia: No COPD: No Diabetes: Yes (DX 1989) HTN: Yes (DX 2003) Hypercholesterolemia: Yes (DX 2003) Thyroid Disease: Yes (HYPOTHYROIDISM) - Surgical History Orthopedic Surgery: Yes (EPIDURAL STERIOD INJECTION) - Suicide/Smoking/Psychosocial Hx Smoking History: Former smoker Have you smoked in the past 12 months: No If you are a former smoker, when did you quit?: 1993 Information on smoking cessation initiated: No Hx Alcohol Use: Yes (socially) Drug/Substance Use Hx: No Substance Use Type: None Hx Substance Use Treatment: No <Bowen Rogers - Last Filed: 07/02/17 19:29> - Past Medical History Allergies/Adverse Reactions: Allergies Allergy/AdvReac Type Severity Reaction Status Date / Time Penicillins Allergy Intermediate rash Verified 07/02/17 12:00 poison [place] extract Allergy Intermediate Rash Verified 07/02/17 12:00 [Poison [place] Extract] Bee stings Allergy Severe Swelling Uncoded 07/02/17 12:00 TAE Allergy Mild Swelling Uncoded 07/02/17 12:00 Home Medications: Ambulatory Orders Aspirin [Aspir-Low] 81 mg PO DAILY 11/07/14 Multivitamin [Daily Vitamin] 1 each PO DAILY tablet 11/07/14 Atorvastatin Ca [Lipitor] 10 mg PO HS 12/07/16 Levothyroxine [Synthroid -] 25 mcg PO DAILY 12/07/16 Metformin HCl 2 tab PO ASDIR 12/07/16 Pantoprazole Sodium [Protonix -] 40 mg PO DAILY #30 tab 12/11/16 Review of Systems - Review of Systems Able to Perform ROS?: Yes Comments:: 07/02/17 13:16 A complete review of 10 out of 10 review of systems is taken and is negative apart from what is previously mentioned below and in the HPI. <Milton Cade - Last Filed: 07/02/17 19:13> *Physical Exam - Vital Signs Last Vital Signs Temp Pulse Resp BP Pulse Ox 98.1 F 99 H 18 143/99 96 07/02/17 12:00 07/02/17 12:00 07/02/17 12:00 07/02/17 12:00 07/02/17 12:00 - Physical Exam Comments: 07/02/17 13:16 Vitals: Triage Vital signs reviewed General Appearance: no acute distress, well nourished well developed, Head: Atraumatic, normocephalic Chest Wall: Nontender Cardiac: Regular rate and rhythm, no murmurs, no rubs, no gallops, Lungs: Clear to auscultation bilateral, good air movement bilaterally, Abdomen: Diffuse abdominal tenderness to palpation, Distended. Soft, normal bowel sounds Rectal: No fecal impaction Extremities: Full range of motion to all extremities, no cyanosis, clubbing, or edema Skin: Warm and dry, no rashes or lesions, no petechiae Neuro: AOX3; Cranial Nerves 2-12 grossly intact, Strength intact to all extremities, Sensation intact to all extremities Psych: normal mood, normal affect <Milton Cade - Last Filed: 07/02/17 19:13> - Vital Signs Last Vital Signs Temp Pulse Resp BP Pulse Ox 98.1 F 99 H 18 143/99 96 07/02/17 12:00 07/02/17 12:00 07/02/17 12:00 07/02/17 12:00 07/02/17 12:00 <Bowen Rogers - Last Filed: 07/02/17 19:29> Heart Score/ECG Review - ECG Intrepretation Comment:: 07/02/17 19:12 Rate of 103 bpm, normal sinus rhythm, no ST elevations, or T wave inversions. <Milton Cade - Last Filed: 07/02/17 19:13> ED Treatment Course - LABORATORY CBC & Chemistry Diagram: 07/02/17 13:14 07/02/17 13:14 - RADIOLOGY Radiograph Interpretation: 07/02/17 18:00 EXAM: CT Abdomen and Pelvis INTERPRETED BY: Dr. Burgess REVIEWED BY: Dr. Rogers IMPRESSION: Distal small bowel obstruction as discussed above. A small amount of free intraperitoneal fluid is noted. 1 cm left adrenal nodule which may been present on the prior exam. Correlate with 3 month follow- up CT to document stability. 1.3 cm left ovarian cyst which is probably unchanged. This finding may also be reevaluated on 3 month follow-up CT. Diffuse hepatic steatosis. Cholelithiasis. Mild sigmoid diverticulosis. - Medications Given in the ED: ED Medications Discontinued Medications Generic Name Dose Route Start Last Admin Trade Name Freq PRN Reason Stop Dose Admin Ondansetron HCl 4 mg 07/02/17 12:35 07/02/17 13:15 Zofran Injection IVPUSH 07/02/17 12:36 4 mg ONCE ONE Administration Sodium Chloride 500 ml 07/02/17 12:35 07/02/17 13:15 Normal Saline - IV 07/02/17 12:36 500 ml ONCE ONE Administration <Milton Cade - Last Filed: 07/02/17 19:13> - LABORATORY CBC & Chemistry Diagram: 07/02/17 13:14 07/02/17 13:14 <Bowen Rogers - Last Filed: 07/02/17 19:29> Medical Decision Making - Medical Decision Making 07/02/17 13:18 he patient is a 87 year old female, with a significant past medical history of diabetes, hypothyroidism, hypertension, and hyperlipidemia, who presents to the emergency department with constipation and abdominal pain for approximately 2 days. Plan: -Labs -CT Abdomen and Pelvis -Admit to hospitalists First call placed to Dr. Olivarez at 18:03. Awaiting call back. Case discussed with Dr. Olivarez at 19:10. First call placed to [facility] at 18:16. Awaiting call back from Dr. Chung. Case discussed with Dr. Chung at 18:20. <Milton Cade - Last Filed: 07/02/17 19:13> - Medical Decision Making 07/02/17 18:28 Small bowel obstruction on CAT scan. Dr. Chung surgery aware. We'll place an NG tube admitted to medicine for further management. <Bowen Rogers - Last Filed: 07/02/17 19:29> *DC/Admit/Observation/Transfer - Attestations Scribe Attestion: 07/02/17 13:18 Documentation prepared by Milton Cade, acting as director medical for Bowen Rogers MD. <Milton Cade - Last Filed: 07/02/17 19:13> - Discharge Dispostion Admit: Yes <Bowen Rogers - Last Filed: 07/02/17 19:29> Diagnosis at time of Disposition: Small bowel obstruction - Referrals Referrals: Russell Piper MD [Primary Care Provider] -
[2017-07-02] MEDS ORDERED: SODIUM CHLORIDE 0.9% 1000 ML INFUS.BAG IV ONE ×2 (12:35→15:32)
[2017-07-02] MEDS ORDERED: ONDANSETRON 4 MG/2 ML VIAL IVPUSH ONE (12:35)
[2017-07-02] MEDS ORDERED: ONDANSETRON 4 MG/2 ML VIAL ONE (13:10)
[2017-07-02 13:24] LABS: BASOPHIL 1.2 % (0-2.0); EOSINOPHIL 0.3 % (0-4.5); MCH 27.6 pg (25.7-33.7); MCHC 31.8 g/dl (32.0-36.0); MEAN CELL VOLUME 86.8 fl (80-96); NEUTROPHILS 75.8 % (42.8-82.8); PLATELET COUNT 489 K/MM3 (134-434); WHITE BLOOD COUNT 11.9 K/mm3 (4.0-10.0)
[2017-07-02 13:48] LABS: ALBUMIN 4.3 g/dl (3.4-5.0); ANION GAP 11 (8-16); CALCIUM 9.9 mg/dL (8.5-10.1); CO2 24 mmol/L (21-32); CREATININE 1.1 mg/dL (0.55-1.02); GLUCOSE,RANDOM 121 mg/dL (74-106); SGPT/ALT 30 U/L (12-78)
[2017-07-02 13:50] LABS: ALK PHOS 57 U/L (45-117); BILIRUBIN,TOTAL 0.5 mg/dL (0.2-1.0)
[2017-07-02 13:59] LABS: SGOT/AST 33 U/L (15-37)
[2017-07-02] MEDS ORDERED: morphine CARPU-JECT 4 MG/1 ML DISP.SYRIN IVPUSH ONE (15:38)
[2017-07-02] MEDS ORDERED: morphine SULFATE 4 MG/ML VIAL ONE (16:16)
[2017-07-02] MEDS ORDERED: LIDOCAINE HCL 2% JELLY (30 ML/TUBE) TP ONE (18:30)
[2017-07-02] MEDS ORDERED: TETRACAINE/BENZOCAINE/BUTAMBEN 20 GM SPR TP ONE (18:30)
--- NOTE | 2017-07-02 18:32 | CONSULT ---
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 pain is crampy and focal to the right lower abdomen. She denies any nausea or vomiting. She has had a pervious similar episode in december 2016. This pain is associated with constipation for approximately 2 days. The patient reports she has been unable to have a bowel movement or pass gas for 2 days. She feels bloated and distension. we were asked to assess this abdominal pain and nausea. her usual BM are soft and her last colonoscopy was normal according to her back in 2014. she was previously seen by Dr. Jamison Olivarez, we were asked to assess her on-call. in december she resolved without surgery after 3 days of NGT decompression. - History Source History Provided By: Patient Limitations to Obtaining History: No Limitations - Past Medical History Endocrine: Yes: Diabetes Mellitus, Hypothyroidism - Alcohol/Substance Use Hx Alcohol Use: Yes (socially) - Smoking History Smoking history: Former smoker Have you smoked in the past 12 months: No If you are a former smoker, when did you quit?: 1993 - Social History Place of : [facility] History of Recent Travel: No Home Medications - Allergies Allergies/Adverse Reactions: Allergies Allergy/AdvReac Type Severity Reaction Status Date / Time Penicillins Allergy Intermediate rash Verified 07/02/17 12:00 poison alexandria extract Allergy Intermediate Rash Verified 07/02/17 12:00 [Poison [place] Extract] Bee stings Allergy Severe Swelling Uncoded 07/02/17 12:00 TAE Allergy Mild Swelling Uncoded 07/02/17 12:00 - Home Medications Home Medications: Ambulatory Orders Aspirin [Aspir-Low] 81 mg PO DAILY 11/07/14 Multivitamin [Daily Vitamin] 1 each PO DAILY tablet 11/07/14 Atorvastatin Ca [Lipitor] 10 mg PO HS 12/07/16 Levothyroxine [Synthroid -] 25 mcg PO DAILY 12/07/16 Metformin HCl 2 tab PO ASDIR 12/07/16 Pantoprazole Sodium [Protonix -] 40 mg PO DAILY #30 tab 05/05/17 Review of Systems - Review of Systems Constitutional: denies: Chills, Fever Eyes: denies: Blurred Vision, Recent Change in Vision HENT: denies: Difficult Swallowing, Throat Pain Neck: reports: Stiffness. denies: Swollen Glands Cardiovascular: denies: Chest Pain, Palpitations Respiratory: denies: Cough, SOB Gastrointestinal: reports: Abdominal Pain (previous episode 12/2016 treated no operatievly for 4 days with NGT decompression), Bloating Genitourinary: denies: Dysuria, Frequency, Urgency Breasts: reports: No Symptoms Reported. denies: Pain Musculoskeletal: reports: Back Pain (s/p lumbar disk surgery) Integumentary: denies: Lesions, Rash Neurological: denies: Change in LOC, Headache Endocrine: denies: Unexplained Weight Gain, Unexplained Weight Loss Hematology/Lymphatic: denies: Easily Bruised, Swollen Glands Psychiatric: denies: Anxiety, Depression Physical Exam Vital Signs: Vital Signs Temperature 98.1 F 07/02/17 12:00 Pulse Rate 99 H 07/02/17 12:00 Respiratory Rate 18 07/02/17 12:00 Blood Pressure 143/99 07/02/17 12:00 O2 Sat by Pulse Oximetry (%) 96 07/02/17 12:00 Vital Signs Period Temp Pulse Resp BP Sys/Contreras Pulse Ox Last 24 Hr 98.1 F-98.7 F 89-102 16-19 140-155/87-99 96-100 Constitutional: Yes: No Distress, Calm, Obese Eyes: Yes: Conjunctiva Clear, EOM Intact HENT: Yes: Atraumatic, Normocephalic Neck: Yes: Supple, Trachea Midline Cardiovascular: Yes: Regular Rate and Rhythm, S1, S2. No: Murmur Respiratory: Yes: Regular, CTA Bilaterally Gastrointestinal: Yes: Abdomen, Obese, Distention, Hypoactive Bowel Sounds, Tenderness (RLQ tenderness, +local guarding, - rebound, typannny centrally), Other. No: Ascites, Hepatomegaly, Hernia, Palpable Mass, Rectal Bleeding, Tenderness, Rebound ...Rectal Exam: Yes: Hemorrhoids/External, Sphincter Tone Normal. No: Mass Renal/: No: CVA Tenderness - Left, CVA Tenderness - Right Musculoskeletal: No: Muscle Pain, Muscle Weakness Extremities: No: Cool, Cyanosis Edema: No Peripheral Pulses WNL: Yes (2+ DP and PT bilaterally ) Integumentary: No: Incision (no incisions on the abdomen), Rash Neurological: Yes: Alert, Oriented Psychiatric: Yes: Alert, Oriented Labs: CBC, BMP 07/02/17 13:14 07/02/17 13:14 Imaging - Results Cat Scan: Report Reviewed, Image Reviewed (distended loops of SB transition point RLQ, no free air, minimal free fluid, no pneumotosis) Problem List - Problems (1) Small bowel obstruction Assessment/Plan: 87yo PMH DM, hypothroidism abdominal pain and opstipation for a day, no previous abdominal surgery NPO and IVF hydration/ resuscitation NGT placed to LCWS Strict I&O Trend labs (CBC and lactic acid) consider empiric IV antibiotics (translocation?) Repeat labs in AM (add tumor markers) serial AXRs daily to track contrast progress serial exams adequate analgesia Medical optimization in case surgery is needed, kindly provide a risk stratification for general anesthesia for an abdominal procedure GI and DVT prophylaxsis will follow Thank you for the opportunity to participate in the care of this patient. Code(s): K56.69 - OTHER INTESTINAL OBSTRUCTION * DO NOT USE * (2) Abdominal pain, chronic, right lower quadrant Code(s): R10.31 - RIGHT LOWER QUADRANT PAIN; G89.29 - OTHER CHRONIC PAIN (3) Abdominal pain in female Code(s): R10.9 - UNSPECIFIED ABDOMINAL PAIN (4) HLD (hyperlipidemia) Code(s): E78.5 - HYPERLIPIDEMIA, UNSPECIFIED (5) HTN (hypertension) Code(s): I10 - ESSENTIAL (PRIMARY) HYPERTENSION (6) Hypothyroid Code(s): E03.9 - HYPOTHYROIDISM, UNSPECIFIED (7) Dehydration, moderate Code(s): E86.0 - DEHYDRATION
[2017-07-02] MEDS ORDERED: LACTATED RINGERS SOLUTION 1000 ML INFUS.BAG IV ONE (19:18)
[2017-07-02] MEDS ORDERED: cefOXitin SODIUM 2 GM VIAL (RESTRICTED TO ID) IVPB ONE (19:19)
[2017-07-02] MEDS ORDERED: LACTATED RINGERS SOLUTION 1,000 ML IV SCH (19:30)
--- NOTE | 2017-07-02 19:35 | HP ---
CC: Stomach pain PCP: Dr. Piper HPI: 87 yo F h/o SBO, HTN, NIDDM, HLD, and hypothyroidism presented to the ED with abd pain since last night 7pm. Patient endorses being at normal state of health last night till she had turkey and coffee which caused her to have intermittent abd pain shortly after. The pain is distributed diffusely, travels horizontally between two flanks, 9/10, vague, no alleviating or aggravating factors, not associated with vomiting. She has not eaten anything, passed flatus or moved her bowel since the pain started. Patient attributes the symptom to small bowel obstruction which she had in 12/2016 and resolved with medical management. She denies fever, chills, chest pain, shortness of breath, n /v, urinary symptom. PMH: As above PSH: Hysterectomy, L4-L5 steroid injection and laminectomy Social History: Former smoker, no alcohol or drug use. Lives with at home Family History: non-contributory Allergy: Penicillins Allergy (Intermediate, Verified 12/07/16 17:18) rash poison alexandria extract [Poison [place] Extract] Allergy (Intermediate, Verified 17:18) Rash Bee stings Allergy (Severe, Uncoded 02/07/15 13:55) Swelling TAE Allergy (Mild, Uncoded 02/07/15 13:55) Swelling Home Meds: Aspirin [Aspir-Low] 81 mg PO DAILY 11/07/14 Multivitamin [Daily Vitamin] 1 each PO DAILY tablet 11/07/14 Atorvastatin Ca [Lipitor] 10 mg PO HS 12/07/16 Levothyroxine [Synthroid -] 25 mcg PO DAILY 12/07/16 Metformin HCl 2 tab PO ASDIR 12/07/16 Pantoprazole Sodium [Protonix -] 40 mg PO DAILY #30 tab 12/11/16 ROS: Constitutional: No fevers, night sweats or weight loss. Head: +headache Eyes: No vision change ENT: No cough. Skin: No lesion/rash Cardiovascular: No chest pain or sob Pulmonary: No cough (dry or productive), colored sputum Endocrine: No polyuria, polydipsia, skin /hair changes, heat/cold intolerance. GI: +chronic constipation, +pain : No frequency, urgency, dysuria, or hematuria. MSK: Denies joint or muscle pain Psychology: No depression, anxiety, or insomnia. Physical Examination Last Vital Signs Temp Pulse Resp BP Pulse Ox 98.6 F 89 16 140/89 100 07/02/17 16:10 07/02/17 16:10 07/02/17 16:10 07/02/17 16:10 07/02/17 16:10 General: Patient lying in bed in no obvious discomfort or distress, AAO x 3. able to speak full sentences, appropriate to stated age. Eyes: PERRLA ENT: Oropharynx clear with no lesions/erythema. Neck: Supple with no LAD or masses. Lymph Nodes: No cervical or inguinal LAD. Cardiovascular: Tachycardic, Regular rhythm, S1 and S2 normal, no m/g/r. Lungs: b/l wheezes Abdomen: Normoactive bowel sounds. Non-distended, mildly diffuse tenderness, no guarding/rebound Extremeties:+1 peripheral edema. CBCD WBC 11.9 K/mm3 (4.0-10.0) H D 07/02/17 13:14 RBC 4.91 M/mm3 (3.60-5.2) D 07/02/17 13:14 Hgb 13.5 GM/dL (10.7-15.3) D 07/02/17 13:14 Hct 42.6 % (32.4-45.2) D 07/02/17 13:14 MCV 86.8 fl (80-96) 07/02/17 13:14 MCHC 31.8 g/dl (32.0-36.0) L 07/02/17 13:14 RDW 14.0 % (11.6-15.6) 07/02/17 13:14 Plt Count 489 K/MM3 (134-434) H D 07/02/17 13:14 MPV 8.0 fl (7.5-11.1) 07/02/17 13:14 CMP Sodium 136 mmol/L (136-145) 07/02/17 13:14 Potassium 4.8 mmol/L (3.5-5.1) D 07/02/17 13:14 Chloride 101 mmol/L (98-107) 07/02/17 13:14 Carbon Dioxide 24 mmol/L (21-32) 07/02/17 13:14 Anion Gap 11 (8-16) 07/02/17 13:14 BUN 23 mg/dL (7-18) H D 07/02/17 13:14 Creatinine 1.1 mg/dL (0.55-1.02) H D 07/02/17 13:14 Creat Clearance w eGFR 47.21 (>60) 07/02/17 13:14 Calcium 9.9 mg/dL (8.5-10.1) 07/02/17 13:14 Total Bilirubin 0.5 mg/dL (0.2-1.0) 07/02/17 13:14 AST 33 U/L (15-37) D 07/02/17 13:14 ALT 30 U/L (12-78) D 07/02/17 13:14 Alkaline Phosphatase 57 U/L (45-117) 07/02/17 13:14 Total Protein 8.0 g/dl (6.4-8.2) D 07/02/17 13:14 Albumin 4.3 g/dl (3.4-5.0) D 07/02/17 13:14 Imaging: CT abd w/ contrast on 07/02: distal SBO, 1cm L adrenal nodule, 1.3cm ovarian cyst (unchanged), steatosis, cholelithiasis, mild diverticulosis A/P: 87 yo F h/o SBO, HTN, NIDDM, HLD, and hypothyroidism admitted to med-surg for small bowel obstruction Severe sepsis - 2/2 recurrent SBO * etiology likely related to food intake and chronic constipation * NGT and NPO * T&S and Coag * f/u serial abd X-rays * Morphine for pain control * Zofran for antiemetic * Surgery onboard - Leukocytosis likely reactive * Received cefoxitin x 1 dose * afrebile - Received 1L NS and 1L LR, cont. hydration - Trend lactate SALVADOR - Normal Cr baseline - Cont. hydration IDDM - BGM and SSI HLD - NPO, hold Lipitor and tricor HTN - NPO, hold lisinopril Hypothyroidism - NPO hold synthroid FEN - NS@42cc/hr - Replete lytes prn - NPO Prophylaxis - DVT: Heparin SQ TID Dispo - Cont. to monitor on med-surg [facility] PGY2 Pager: [phone] Visit type - Emergency Visit Emergency Visit: Yes ED Registration Date: 07/02/17 Care time: The patient presented to the Emergency Department on the above date and was hospitalized for further evaluation of their emergent condition. - New Patient This patient is new to me today: Yes Date on this admission: 07/02/17 - Critical Care Critical Care patient: No
[2017-07-02] MEDS ORDERED: ONDANSETRON 4 MG/2 ML VIAL IVPB PRN (19:47)
[2017-07-02] MEDS ORDERED: PROMETHAZINE HCL 25 MG/1 ML VIAL IVPB PRN (19:48)
[2017-07-02] MEDS ORDERED: LIDOCAINE HCL 2% JELLY 10 ML CARTRIDGE ONE (19:51)
[2017-07-02] MEDS ORDERED: morphine SULFATE 4 MG/ML VIAL IVPUSH PRN (19:59)
[2017-07-02] MEDS ORDERED: ACETAMINOPHEN 1000 MG/100 ML VIAL (NON FORMULARY) IVPB ONE (20:00)
[2017-07-02] MEDS ORDERED: ACETAMINOPHEN INJECTION 100 ML IVPB ONE (20:03)
[2017-07-02] MEDS ORDERED: SODIUM CHLORIDE 1,000 ML IV SCH (21:00)
--- NOTE | 2017-07-02 21:58 | PN ---
Teaching Attending Note Name of Resident: Elmer Almodovar ATTENDING PHYSICIAN STATEMENT I saw and evaluated the patient. I reviewed the resident's note and discussed the case with the resident. I agree with the resident's findings and plan as documented. SUBJECTIVE: OBJECTIVE: ASSESSMENT AND PLAN: 87 yo F h/o SBO, HTN, NIDDM, HLD, and hypothyroidism admitted to med-surg for small bowel obstruction Severe sepsis - 2/2 recurrent SBO Keep patient NPO, NGT for decompression - monitor electrolytes and correct accordingly * f/u serial abd X-rays * Morphine for pain control * Zofran for antiemetic * f/u with Surgery recommendation - Leukocytosis likely reactive * Received cefoxitin x 1 dose * afrebile - Received 1L NS and 1L LR, cont. hydration - Trend lactate SALVADOR - Normal Cr baseline - Continue with IVF hydration DM: - c/w sliding scale - hold po medication dyslipidemia - hold medication at this time HTN - patient is in sepsis at this time will hold off on medication Hypothyroidism - repeat TSH - may give IV levothyroxine if TSH is low if not will keep the patient NPO FEN - NS@42cc/hr - Replete lytes prn - NPO Prophylaxis - DVT: Heparin SQ q8hrs
[2017-07-02] MEDS: INSULIN SLIDING SCALE (NOVOLOG) 1 VIAL SQ SCH (22:45)
[2017-07-02] MEDS: HEPARIN NA (PORCINE) 5,000 UNITS/ML 1ML VIAL SQ SCH (22:46)
[2017-07-02 23:35] VITALS: BMI 32.1
[2017-07-03] MEDS: HEPARIN NA (PORCINE) 5,000 UNITS/ML 1ML VIAL SQ SCH ×3 (06:33→21:13)
[2017-07-03] MEDS: INSULIN SLIDING SCALE (NOVOLOG) 1 VIAL SQ SCH ×4 (06:33→21:13)
[2017-07-03 08:20] LABS: BASOPHIL 0.5 % (0-2.0); EOSINOPHIL 1.3 % (0-4.5); MCH 28.1 pg (25.7-33.7); MCHC 32.5 g/dl (32.0-36.0); MEAN CELL VOLUME 86.4 fl (80-96); MEAN PLT VOLUME 7.9 fl (7.5-11.1); NEUTROPHILS 66.5 % (42.8-82.8); PLATELET COUNT 369 K/MM3 (134-434); RDW 14.1 % (11.6-15.6); WHITE BLOOD COUNT 6.7 K/mm3 (4.0-10.0)
[2017-07-03 08:28] LABS: INR 0.99 (0.82-1.09); PROTHROMBIN TIME (PATIENT) 11.2 SEC (9.98-11.88)
--- NOTE | 2017-07-03 08:30 | PN ---
Progress Note, Physician Chief Complaint: abdominal pain History of Present Illness: 87 yo female DM, HLD, hypothyroidism, left siatica s/p lumbar disc spine surgery presents to emergency department with abdominal pain that started at 9pm yesterday after thanksgiving dinner. The abdominal pain has improved. She has not had any flatus. NGT is minimal. She also reports no having previous bouts of diverticultis and there was diverticulosis on last colonopscopy - Current Medication List Current Medications: Active Medications Heparin Sodium (Porcine) (Heparin -) 5,000 unit SQ TID KAR Last Admin: 07/03/17 06:33 Dose: 5,000 unit Lactated Ringer's (Lactated Ringers Solution) 1,000 mls @ 1,000 mls/hr IV ASDIR KAR Last Admin: 07/02/17 20:11 Dose: 1,000 mls/hr Sodium Chloride (Normal Saline -) 1,000 mls @ 42 mls/hr IV ASDIR KAR Last Admin: 07/02/17 22:44 Dose: 42 mls/hr Insulin Aspart (Novolog Vial Sliding Scale -) 1 vial SQ ACHS KAR PRN Reason: Protocol Last Admin: 07/03/17 06:33 Dose: Not Given Morphine Sulfate (Morphine Sulfate) 2 mg IVPUSH Q4H PRN PRN Reason: PAIN Promethazine HCl (Phenergan Injection -) 12.5 mg IVPB Q6H PRN PRN Reason: NAUSEA AND/OR VOMITING - Objective Vital Signs: Vital Signs Temperature 97.8 F 07/03/17 05:56 Pulse Rate 102 H 07/03/17 05:56 Respiratory Rate 20 07/03/17 05:56 Blood Pressure 128/63 07/03/17 05:56 O2 Sat by Pulse Oximetry (%) 96 07/02/17 22:00 Vital Signs Period Temp Pulse Resp BP Sys/Contreras Pulse Ox Last 24 Hr 97.8 F-98.7 F 83-102 16-20 128-155/63-89 96-100 Intake & Output 07/02/17 07/03/17 07/03/17 23:59 07:59 15:59 Intake Total 300 Output Total 100 800 Balance -100 -500 Weight 175 lb 4.8 oz Intake: IV 300 Normal Saline - 1,000 ml 300 @ 42 mls/hr IV ASDIR KAR Rx#:[id number] Output: Gastric Drainage 200 Urine 100 600 Void 100 600 Other: Voiding Method Bedside Commode Bedside Commode # Unmeasured Voids Void 1 Bowel Movement No Height 5 ft 2 in Body Mass Index (BMI) 32.1 Constitutional: Yes: Well Nourished, No Distress, Obese Eyes: Yes: Conjunctiva Clear, EOM Intact HENT: Yes: Atraumatic, Normocephalic Neck: Yes: Supple, Trachea Midline Cardiovascular: Yes: Regular Rate and Rhythm, S1, S2. No: Murmur Respiratory: Yes: Regular, CTA Bilaterally Gastrointestinal: Yes: Soft, Distention, Hypoactive Bowel Sounds. No: Tenderness, Tenderness, Epigastrium, Tenderness, Rebound Genitourinary: No: CVA Tenderness - Left, CVA Tenderness - Right Musculoskeletal: No: Muscle Pain, Muscle Weakness Edema: No Peripheral Pulses WNL: Yes Peripheral Pulses: Left Radial: 2+, Right Radial: 2+, Left Doralis Pedis: 2+, Right Dorsalis Pedis: 2+ Neurological: Yes: Alert, Oriented Psychiatric: Yes: Alert, Oriented Labs: CBC, BMP 07/03/17 07:00 CBC,CMP WBC 6.7 K/mm3 (4.0-10.0) D 07/03/17 07:00 RBC 4.01 M/mm3 (3.60-5.2) 07/03/17 07:00 Hgb 11.3 GM/dL (10.7-15.3) D 07/03/17 07:00 Hct 34.6 % (32.4-45.2) D 07/03/17 07:00 MCV 86.4 fl (80-96) 07/03/17 07:00 MCH 28.1 pg (25.7-33.7) 07/03/17 07:00 MCHC 32.5 g/dl (32.0-36.0) 07/03/17 07:00 RDW 14.1 % (11.6-15.6) 07/03/17 07:00 Plt Count 369 K/MM3 (134-434) D 07/03/17 07:00 MPV 7.9 fl (7.5-11.1) 07/03/17 07:00 Neutrophils % 66.5 % (42.8-82.8) 07/03/17 07:00 Lymphocytes % 22.0 % (8-40) D 07/03/17 07:00 Monocytes % 9.7 % (3.8-10.2) 07/03/17 07:00 Eosinophils % 1.3 % (0-4.5) D 07/03/17 07:00 Basophils % 0.5 % (0-2.0) 07/03/17 07:00 Sodium 138 mmol/L (136-145) 07/03/17 07:00 Potassium 4.1 mmol/L (3.5-5.1) 07/03/17 07:00 Chloride 107 mmol/L (98-107) 07/03/17 07:00 Carbon Dioxide 23 mmol/L (21-32) 07/03/17 07:00 Anion Gap 8 (8-16) 07/03/17 07:00 BUN 13 mg/dL (7-18) D 07/03/17 07:00 Creatinine 0.8 mg/dL (0.55-1.02) D 07/03/17 07:00 Creat Clearance w eGFR 47.21 (>60) 07/02/17 13:14 POC Glucometer 111 UNITS (80-120) 07/03/17 12:13 Random Glucose 129 mg/dL (74-106) H 07/03/17 07:00 Lactic Acid 1.3 mmol/L (0.4-2.0) 07/02/17 20:16 Calcium 8.1 mg/dL (8.5-10.1) L 07/03/17 07:00 Total Bilirubin 0.5 mg/dL (0.2-1.0) 07/02/17 13:14 AST 33 U/L (15-37) D 07/02/17 13:14 ALT 30 U/L (12-78) D 07/02/17 13:14 Alkaline Phosphatase 57 U/L (45-117) 07/02/17 13:14 Total Protein 8.0 g/dl (6.4-8.2) D 07/02/17 13:14 Albumin 4.3 g/dl (3.4-5.0) D 07/02/17 13:14 Lipase 478 U/L (73-393) H 07/02/17 13:14 - ....Imaging X-ray: Report Reviewed, Image Reviewed (resolving sbo) Problem List - Problems (1) Small bowel obstruction Assessment/Plan: 87yo PMH DM, hypothroidism abdominal pain and, no previous abdominal surgery but bouts of diverticulitis. passed flatus after ambulation clears liquid diet discontinued NGT, only 200 in 24hrs Trend labs (CBC and lactic acid) AXR shows improvement with contrast in the colon adequate analgesia will follow Code(s): K56.69 - OTHER INTESTINAL OBSTRUCTION * DO NOT USE * (2) Abdominal pain, chronic, right lower quadrant Code(s): R10.31 - RIGHT LOWER QUADRANT PAIN; G89.29 - OTHER CHRONIC PAIN (3) Abdominal pain in female Code(s): R10.9 - UNSPECIFIED ABDOMINAL PAIN (4) HLD (hyperlipidemia) Code(s): E78.5 - HYPERLIPIDEMIA, UNSPECIFIED (5) HTN (hypertension) Code(s): I10 - ESSENTIAL (PRIMARY) HYPERTENSION (6) Hypothyroid Code(s): E03.9 - HYPOTHYROIDISM, UNSPECIFIED (7) Dehydration, moderate Code(s): E86.0 - DEHYDRATION
[2017-07-03 08:31] LABS: ACTIVATED PTT 25.8 SECONDS (26.9-34.4)
[2017-07-03 09:20] LABS: ANION GAP 8 (8-16); CALCIUM 8.1 mg/dL (8.5-10.1); CO2 23 mmol/L (21-32); CREATININE 0.8 mg/dL (0.55-1.02); GLUCOSE,RANDOM 129 mg/dL (74-106)
--- NOTE | 2017-07-03 09:28 | PN ---
Physical Exam: SUBJECTIVE: Patient seen and examined Patient is feeling better, having flatus without any difficulty. comfortably sitting on the bed. NG-tube was removed by the surgeon. OBJECTIVE: Vital Signs Temperature 97.8 F 07/03/17 05:56 Pulse Rate 102 H 07/03/17 05:56 Respiratory Rate 20 07/03/17 05:56 Blood Pressure 128/63 07/03/17 05:56 O2 Sat by Pulse Oximetry (%) 96 07/02/17 22:00 GENERAL: The patient is awake, alert, and fully oriented, in no acute distress. HEAD: Normal with no signs of trauma. EYES: PERRL, extraocular movements intact, sclera anicteric, conjunctiva clear. ENT: Ears normal, oropharynx clear without exudates, moist mucous membranes. NECK: Trachea midline, full range of motion, supple. LUNGS: Breath sounds equal, clear to auscultation bilaterally, no wheezes, no crackles, no accessory muscle use. HEART: Regular rate and rhythm, S1, S2 without murmur, rub or gallop. ABDOMEN: Soft, nontender, nondistended, hypoactive BS , no guarding, no rebound , no hepatosplenomegaly, no masses. EXTREMITIES: 2+ pulses, warm, well-perfused, no edema. NEUROLOGICAL: Cranial nerves II through XII grossly intact. Normal speech, gait is steady PSYCH: Normal mood, normal affect. SKIN: Warm, dry, normal turgor, no rashes or lesions noted CBCD WBC 6.7 K/mm3 (4.0-10.0) D 07/03/17 07:00 RBC 4.01 M/mm3 (3.60-5.2) 07/03/17 07:00 Hgb 11.3 GM/dL (10.7-15.3) D 07/03/17 07:00 Hct 34.6 % (32.4-45.2) D 07/03/17 07:00 MCV 86.4 fl (80-96) 07/03/17 07:00 MCHC 32.5 g/dl (32.0-36.0) 07/03/17 07:00 RDW 14.1 % (11.6-15.6) 07/03/17 07:00 Plt Count 369 K/MM3 (134-434) D 07/03/17 07:00 MPV 7.9 fl (7.5-11.1) 07/03/17 07:00 CMP Sodium 136 mmol/L (136-145) 07/02/17 13:14 Potassium 4.8 mmol/L (3.5-5.1) D 07/02/17 13:14 Chloride 101 mmol/L (98-107) 07/02/17 13:14 Carbon Dioxide 24 mmol/L (21-32) 07/02/17 13:14 Anion Gap 11 (8-16) 07/02/17 13:14 BUN 23 mg/dL (7-18) H D 07/02/17 13:14 Creatinine 1.1 mg/dL (0.55-1.02) H D 07/02/17 13:14 Creat Clearance w eGFR 47.21 (>60) 07/02/17 13:14 Random Glucose 121 mg/dL (74-106) H D 07/02/17 13:14 Calcium 9.9 mg/dL (8.5-10.1) 07/02/17 13:14 Total Bilirubin 0.5 mg/dL (0.2-1.0) 07/02/17 13:14 AST 33 U/L (15-37) D 07/02/17 13:14 ALT 30 U/L (12-78) D 07/02/17 13:14 Alkaline Phosphatase 57 U/L (45-117) 07/02/17 13:14 Total Protein 8.0 g/dl (6.4-8.2) D 07/02/17 13:14 Albumin 4.3 g/dl (3.4-5.0) D 07/02/17 13:14 Home Medication List Medication Instructions Recorded Confirmed Type Aspirin [Aspir-Low] 81 mg PO DAILY 11/07/14 07/02/17 History Multivitamin [Daily Vitamin] 1 each PO DAILY tablet 11/07/14 07/02/17 History Atorvastatin Ca [Lipitor] 10 mg PO HS 12/07/16 07/02/17 History Levothyroxine [Synthroid -] 25 mcg PO DAILY 12/07/16 07/02/17 History Metformin HCl 2 tab PO ASDIR 12/07/16 07/02/17 History Active Medications Generic Name Dose Route Start Last Admin Trade Name Freq PRN Reason Stop Dose Admin Heparin Sodium (Porcine) 5,000 unit 07/02/17 22:00 07/03/17 06:33 Heparin - SQ 5,000 unit TID KAR Administration Lactated Ringer's 1,000 mls @ 1,000 mls/hr 07/02/17 19:30 07/02/17 20:11 Lactated Ringers Solution IV 1,000 mls/hr ASDIR KAR Administration Sodium Chloride 1,000 mls @ 42 mls/hr 07/02/17 21:00 07/02/17 22:44 Normal Saline - IV 42 mls/hr ASDIR KAR Administration Insulin Aspart 1 vial 07/02/17 22:00 07/03/17 06:33 Novolog Vial Sliding Scale - SQ Not Given ACHS [facility] Protocol Morphine Sulfate 2 mg 07/02/17 19:59 Morphine Sulfate IVPUSH Q4H PRN PAIN Promethazine HCl 12.5 mg 07/02/17 19:48 Phenergan Injection - IVPB Q6H PRN NAUSEA AND/OR VOMITING ASSESSMENT/PLAN: 87 yo F h/o SBO, HTN, NIDDM, HLD, and hypothyroidism admitted to med-surg for small bowel obstruction # Acute recurrent SBO resolved for now, had another episode 6 months ago. NGt was removed by the surgeon since started to have flatus, on IVF, on a diet as per surgeon. #SALVADOR improved on IVF, Cont. hydration #IDDM BGM and SSI continue #HLD continue Lipitor and tricor upon discharge #HTN monitor off meds for now. hold lisinopril #Hypothyroidism continue synthroid DVT px: Heparin SQ TID Visit type - Emergency Visit Emergency Visit: Yes ED Registration Date: 07/02/17 Care time: The patient presented to the Emergency Department on the above date and was hospitalized for further evaluation of their emergent condition. - New Patient This patient is new to me today: Yes Date on this admission: 07/03/17 - Critical Care Critical Care patient: No
[2017-07-03] MEDS ORDERED: LACTATED RINGERS SOLUTION 1,000 ML/1,000 ML INFUS.BAG IV SCH (17:00)
[2017-07-03] MEDS: LEVOTHYROXINE NA 25 MCG TABLET (FP) PO SCH (17:28)
[2017-07-04] MEDS: INSULIN SLIDING SCALE (NOVOLOG) 1 VIAL SQ SCH ×3 (06:03→15:51)
[2017-07-04] MEDS: LEVOTHYROXINE NA 25 MCG TABLET (FP) PO SCH (06:04)
[2017-07-04] MEDS: HEPARIN NA (PORCINE) 5,000 UNITS/ML 1ML VIAL SQ SCH ×2 (06:04→14:44)
[2017-07-04 07:45] LABS: BASOPHIL 0.4 % (0-2.0); EOSINOPHIL 1.9 % (0-4.5); MCH 28.3 pg (25.7-33.7); MCHC 32.9 g/dl (32.0-36.0); MEAN CELL VOLUME 86.1 fl (80-96); NEUTROPHILS 55.3 % (42.8-82.8); PLATELET COUNT 327 K/MM3 (134-434); RDW 14.2 % (11.6-15.6); WHITE BLOOD COUNT 5.5 K/mm3 (4.0-10.0)
[2017-07-04 08:36] LABS: ALK PHOS 48 U/L (45-117); ANION GAP 8 (8-16); BILIRUBIN,TOTAL 0.7 mg/dL (0.2-1.0); CALCIUM 8.3 mg/dL (8.5-10.1); CO2 25 mmol/L (21-32); CREATININE 0.7 mg/dL (0.55-1.02); GLUCOSE,RANDOM 117 mg/dL (74-106); SGOT/AST 21 U/L (15-37); SGPT/ALT 19 U/L (12-78); TOT PROT 6.1 g/dl (6.4-8.2)
[2017-07-04] MEDS ORDERED: LISINOPRIL 10 MG TABLET (FP) PO SCH (10:00)
[2017-07-04 14:25] VITALS: BP 112/72; PULSE 85; TEMP 98.2
--- NOTE | 2017-07-04 14:55 | PN ---
Progress Note (short form) - Note Progress Note: Vital Signs Temperature 98.2 F 07/04/17 14:23 Pulse Rate 85 07/04/17 14:23 Respiratory Rate 18 07/04/17 14:23 Blood Pressure 112/72 07/04/17 14:23 O2 Sat by Pulse Oximetry (%) 96 07/04/17 09:00 GENERAL: The patient is awake, alert, and fully oriented, in no acute distress. HEAD: Normal with no signs of trauma. EYES: PERRL, extraocular movements intact, sclera anicteric, conjunctiva clear. ENT: Ears normal, oropharynx clear without exudates, moist mucous membranes. NECK: Trachea midline, full range of motion, supple. LUNGS: Breath sounds equal, clear to auscultation bilaterally, no wheezes, no crackles, no accessory muscle use. HEART: Regular rate and rhythm, S1, S2 without murmur, rub or gallop. ABDOMEN: Soft, nontender, nondistended, hypoactive BS , no guarding, no rebound , no hepatosplenomegaly, no masses. EXTREMITIES: 2+ pulses, warm, well-perfused, no edema. NEUROLOGICAL: Cranial nerves II through XII grossly intact. Normal speech, gait is steady PSYCH: Normal mood, normal affect. SKIN: Warm, dry, normal turgor, no rashes or lesions noted CBCD WBC 5.5 K/mm3 (4.0-10.0) 07/04/17 06:20 RBC 3.83 M/mm3 (3.60-5.2) 07/04/17 06:20 Hgb 10.9 GM/dL (10.7-15.3) 07/04/17 06:20 Hct 33.0 % (32.4-45.2) 07/04/17 06:20 MCV 86.1 fl (80-96) 07/04/17 06:20 MCHC 32.9 g/dl (32.0-36.0) 07/04/17 06:20 RDW 14.2 % (11.6-15.6) 07/04/17 06:20 Plt Count 327 K/MM3 (134-434) 07/04/17 06:20 MPV 8.0 fl (7.5-11.1) 07/04/17 06:20 CMP Sodium 140 mmol/L (136-145) 07/04/17 06:20 Potassium 3.9 mmol/L (3.5-5.1) 07/04/17 06:20 Chloride 107 mmol/L (98-107) 07/04/17 06:20 Carbon Dioxide 25 mmol/L (21-32) 07/04/17 06:20 Anion Gap 8 (8-16) 07/04/17 06:20 BUN 8 mg/dL (7-18) D 07/04/17 06:20 Creatinine 0.7 mg/dL (0.55-1.02) 07/04/17 06:20 Creat Clearance w eGFR > 60 (>60) 07/04/17 06:20 Random Glucose 117 mg/dL (74-106) H 07/04/17 06:20 Calcium 8.3 mg/dL (8.5-10.1) L 07/04/17 06:20 Total Bilirubin 0.7 mg/dL (0.2-1.0) D 07/04/17 06:20 AST 21 U/L (15-37) D 07/04/17 06:20 ALT 19 U/L (12-78) D 07/04/17 06:20 Alkaline Phosphatase 48 U/L (45-117) 07/04/17 06:20 Total Protein 6.1 g/dl (6.4-8.2) L D 07/04/17 06:20 Albumin 3.0 g/dl (3.4-5.0) L D 07/04/17 06:20 Current Medications Generic Name Dose Route Start Last Admin Trade Name Freq PRN Reason Stop Dose Admin Heparin Sodium (Porcine) 5,000 unit 07/02/17 22:00 07/04/17 14:44 Heparin - SQ Not Given TID [facility] Insulin Aspart 1 vial 07/02/17 22:00 07/04/17 11:32 Novolog Vial Sliding Scale - SQ Not Given ACHS [facility] Protocol Levothyroxine Sodium 25 mcg 07/03/17 17:00 07/04/17 06:04 Synthroid - PO 25 mcg DAILY@0700 [facility] Administration Lisinopril 10 mg 07/04/17 10:00 07/04/17 09:14 Prinivil PO 10 mg DAILY [facility] Administration Home Medications Medication Instructions Recorded Aspirin [Aspir-Low] 81 mg PO DAILY 11/07/14 Multivitamin [Daily Vitamin] 1 each PO DAILY tablet 11/07/14 Atorvastatin Ca [Lipitor] 10 mg PO HS 12/07/16 Levothyroxine [Synthroid -] 25 mcg PO DAILY 12/07/16 Metformin HCl 2 tab PO ASDIR 12/07/16 Pantoprazole Sodium [Protonix -] 40 mg PO DAILY #30 tab 12/11/16 A/P: 87 yo F h/o SBO, HTN, NIDDM, HLD, and hypothyroidism admitted to med-surg for small bowel obstruction # Acute recurrent SBO resolved for now, had another episode 6 months ago. NGt was removed by the surgeon since started to have flatus, on IVF, on a diet as per surgeon. #SALVADOR improved on IVF, Cont. hydration #IDDM BGM and SSI continue #HLD continue Lipitor and tricor upon discharge #HTN monitor off meds for now. hold lisinopril #Hypothyroidism continue synthroid DVT px: Heparin SQ TID
--- NOTE | 2017-07-04 15:10 | PN ---
Progress Note (short form) - Note Progress Note: Patient was seen and examined. no new complaints. passing BM and flatus, tolerated clears. Problem List - Problems (1) Small bowel obstruction Assessment/Plan: 87yo PMH DM, hypothroidism abdominal pain and, no previous abdominal surgery but bouts of diverticulitis. passed flatus after ambulation advance diet to regular AXR shows resolution of obstruction she may be discharged home with dietary advice She does not need a followup with surgeon Code(s): K56.69 - OTHER INTESTINAL OBSTRUCTION * DO NOT USE * (2) Abdominal pain, chronic, right lower quadrant Code(s): R10.31 - RIGHT LOWER QUADRANT PAIN; G89.29 - OTHER CHRONIC PAIN (3) Abdominal pain in female Code(s): R10.9 - UNSPECIFIED ABDOMINAL PAIN (4) HLD (hyperlipidemia) Code(s): E78.5 - HYPERLIPIDEMIA, UNSPECIFIED (5) HTN (hypertension) Code(s): I10 - ESSENTIAL (PRIMARY) HYPERTENSION (6) Hypothyroid Code(s): E03.9 - HYPOTHYROIDISM, UNSPECIFIED (7) Dehydration, moderate Code(s): E86.0 - DEHYDRATION
--- NOTE | 2017-07-04 16:27 | DS ---
Physical Exam: SUBJECTIVE: Patient seen and examined Patient is comfortable wit no acute distress, had a BM and able to pass gas, but feels bloated. Feels well, comfortable. OBJECTIVE: Vital Signs Temperature 98.2 F 07/04/17 14:23 Pulse Rate 85 07/04/17 14:23 Respiratory Rate 18 07/04/17 14:23 Blood Pressure 112/72 07/04/17 14:23 O2 Sat by Pulse Oximetry (%) 96 07/04/17 09:00 PHYSICAL EXAM GENERAL: The patient is awake, alert, and fully oriented, in no acute distress. HEAD: Normal with no signs of trauma. EYES: PERRL, extraocular movements intact, sclera anicteric, conjunctiva clear. ENT: Ears normal, nares patent, oropharynx clear without exudates, moist mucous membranes. NECK: Trachea midline, full range of motion, supple. LUNGS: Breath sounds equal, clear to auscultation bilaterally, no wheezes, no crackles, no accessory muscle use. HEART: Regular rate and rhythm, S1, S2 without murmur, rub or gallop. ABDOMEN: Soft, nontender, nondistended, hyperactive BS, no guarding, no rebound , no hepatosplenomegaly, no masses appreciated. EXTREMITIES: 2+ pulses, warm, well-perfused, no edema. NEUROLOGICAL: Cranial nerves II through XII grossly intact. Normal speech, gait is stable. PSYCH: Normal mood, normal affect. SKIN: Warm, dry, normal turgor, no rashes or lesions noted. LABS CBCD WBC 5.5 K/mm3 (4.0-10.0) 07/04/17 06:20 RBC 3.83 M/mm3 (3.60-5.2) 07/04/17 06:20 Hgb 10.9 GM/dL (10.7-15.3) 07/04/17 06:20 Hct 33.0 % (32.4-45.2) 07/04/17 06:20 MCV 86.1 fl (80-96) 07/04/17 06:20 MCHC 32.9 g/dl (32.0-36.0) 07/04/17 06:20 RDW 14.2 % (11.6-15.6) 07/04/17 06:20 Plt Count 327 K/MM3 (134-434) 07/04/17 06:20 MPV 8.0 fl (7.5-11.1) 07/04/17 06:20 CMP Sodium 140 mmol/L (136-145) 07/04/17 06:20 Potassium 3.9 mmol/L (3.5-5.1) 07/04/17 06:20 Chloride 107 mmol/L (98-107) 07/04/17 06:20 Carbon Dioxide 25 mmol/L (21-32) 07/04/17 06:20 Anion Gap 8 (8-16) 07/04/17 06:20 BUN 8 mg/dL (7-18) D 07/04/17 06:20 Creatinine 0.7 mg/dL (0.55-1.02) 07/04/17 06:20 Creat Clearance w eGFR > 60 (>60) 07/04/17 06:20 Random Glucose 117 mg/dL (74-106) H 07/04/17 06:20 Calcium 8.3 mg/dL (8.5-10.1) L 07/04/17 06:20 Total Bilirubin 0.7 mg/dL (0.2-1.0) D 07/04/17 06:20 AST 21 U/L (15-37) D 07/04/17 06:20 ALT 19 U/L (12-78) D 07/04/17 06:20 Alkaline Phosphatase 48 U/L (45-117) 07/04/17 06:20 Total Protein 6.1 g/dl (6.4-8.2) L D 07/04/17 06:20 Albumin 3.0 g/dl (3.4-5.0) L D 07/04/17 06:20 Home Medication List Medication Instructions Recorded Confirmed Type Aspirin [Aspir-Low] 81 mg PO DAILY 11/07/14 07/02/17 History Multivitamin [Daily Vitamin] 1 each PO DAILY tablet 11/07/14 07/02/17 History Atorvastatin Ca [Lipitor] 10 mg PO HS 12/07/16 07/02/17 History Levothyroxine [Synthroid -] 25 mcg PO DAILY 12/07/16 07/02/17 History Metformin HCl 2 tab PO ASDIR 12/07/16 07/02/17 History Active Medications Generic Name Dose Route Start Last Admin Trade Name Freq PRN Reason Stop Dose Admin Heparin Sodium (Porcine) 5,000 unit 07/02/17 22:00 07/04/17 14:44 Heparin - SQ Not Given TID [facility] Insulin Aspart 1 vial 07/02/17 22:00 07/04/17 15:51 Novolog Vial Sliding Scale - SQ Not Given ACHS [facility] Protocol Levothyroxine Sodium 25 mcg 07/03/17 17:00 07/04/17 06:04 Synthroid - PO 25 mcg DAILY@0700 [facility] Administration Lisinopril 10 mg 07/04/17 10:00 07/04/17 09:14 Prinivil PO 10 mg DAILY [facility] Administration HOSPITAL COURSE: Date of Admission:07/02/17 Date of Discharge: 07/04/17 87 yo F h/o SBO, HTN, NIDDM, HLD, and hypothyroidism admitted to med-surg for small bowel obstruction # Acute recurrent SBO resolved patient is tolerating diet, had a BM , as per surgeon patient can go home. s/p NGt removal by the surgeon since started to have flatus, on IVF, on a diet as per surgeon. #SALVADOR improved s/p #IDDM continue home meds. #HLD continue Lipitor and tricor upon discharge #HTN continue lisinopril #Hypothyroidism continue synthroid was suggested to have small meals, every 2 hrs, to stay away from carbohydrates and gassy food such as [place], potatoes, beans, low fat diet, stay away from butter, more liquidy diet for now, warm tea, stay away from dairy products since might have lactose intolerance. Minutes to complete discharge: 34 Discharge Summary Reason For Visit: SMALL BOWEL OBSTRUCTION Current Active Problems Abdominal pain in female (Acute) Abdominal pain, chronic, right lower quadrant (Acute) Dehydration, moderate (Acute) Small bowel obstruction (Acute) - Instructions Diet, Activity, Other Instructions: Follow-up: She does not require follow-up with Dr. Chung Call the office if you have: * increasing pain not responsive to pain medication * fever of 101F or higher * vomiting * unusual or increasing bleeding or drainage from wounds * increasing redness or swelling at wound sites * inability to urinate Also, see your primary medical doctor within 1-2 weeks. Referrals: Russell Piper MD [Primary Care Provider] - - Home Medications Comprehensive Discharge Medication List: Ambulatory Orders Aspirin [Aspir-Low] 81 mg PO DAILY 11/07/14 Multivitamin [Daily Vitamin] 1 each PO DAILY tablet 11/07/14 Atorvastatin Ca [Lipitor] 10 mg PO HS 12/07/16 Levothyroxine [Synthroid -] 25 mcg PO DAILY 12/07/16 Metformin HCl 2 tab PO ASDIR 12/07/16 Pantoprazole Sodium [Protonix -] 40 mg PO DAILY #30 tab 12/11/16 This patient is new to me today: No Emergency Visit: Yes ED Registration Date: 07/02/17 Care time: The patient presented to the Emergency Department on the above date and was hospitalized for further evaluation of their emergent condition. Critical Care patient: No - Discharge Referral Referred to [facility] Med [facility] No
--- NOTE | 2017-07-05 23:06 | EKG ---
Test Reason : Blood Pressure : / mmHG Vent. Rate : 103 BPM Atrial Rate : 103 BPM P-R Int : 168 ms QRS Dur : 074 ms QT Int : 338 ms P-R-T Axes : 051 -17 037 degrees QTc Int : 442 ms SINUS TACHYCARDIA OTHERWISE NORMAL ECG WHEN COMPARED WITH ECG OF 07-DEC-2016 19:08, NO SIGNIFICANT CHANGE WAS FOUND Confirmed by ANTOINE REDD MD ([id number]) on 07/05/2017 11:06:11 PM Referred By: Confirmed By:ANTOINE REDD MD
== END 2017-07-04 16:45 | disposition home or self-care (01) | DRG 389 ==
LOC: JER 11:45 → JERBED 18:29 → J6S 21:41
PROVIDERS: ADMIT Internal Medicine; ATTEND Internal Medicine
PROC: 0D9670Z Drainage of Stomach with Drainage Device, Via Natural or Artificial Opening (ICD-10-PCS; principal; 2017-07-02)
DX: K56.609 Unspecified intestinal obstruction, unspecified as to partial versus complete obstruction (principal); N17.9 Acute kidney failure, unspecified; E78.5 Hyperlipidemia, unspecified; I10 Essential (primary) hypertension; E03.9 Hypothyroidism, unspecified; E11.9 Type 2 diabetes mellitus without complications; D72.829 Elevated white blood cell count, unspecified; R10.31 Right lower quadrant pain; E86.0 Dehydration
CPT/HCPCS: 36415; 74020-TC; 74177-TC; 80048; 80053; 82378; 83605; 83690; 85025; 85610; 85730; 86850; 86900; 86901; 93005; 93010; 99282-25; J1644

== ENCOUNTER 2018-07-03 14:44 | Inpatient (IN) | payer OTHER ==
--- NOTE | 2018-07-03 14:56 | PDOC ---
History of Present Illness - General Chief Complaint: Pain, Acute Stated Complaint: ABD PAIN Time Seen by Provider: 07/03/18 14:48 - History of Present Illness Initial Comments: 07/03/18 15:54 The patient is an 88 year old female with a history of HTN, HLD, DM, SBO who presents for evaluation of abdominal pain. The patient reports a 2 day history of worsening diffuse abdominal pain that she states feels similar to her prior SBOs. She notes that her last bowel movement was 2 days ago and she has experienced 2-3 episodes of vomiting since that time prompting her presentation to the ED for further evaluation. She notes that she has never had abdominal surgery and her SBOs resolve usually after NG tube. She otherwise denies fevers , chills, SOB, chest pain, or changes with urination. Past History - Past Medical History Allergies/Adverse Reactions: Allergies Allergy/AdvReac Type Severity Reaction Status Date / Time Penicillins Allergy Intermediate rash Verified 07/03/18 14:45 poison [place] extract Allergy Intermediate Rash Verified 07/03/18 14:45 [Poison [place] Extract] oxycodone Allergy Verified 07/03/18 16:14 Bee stings Allergy Severe Swelling Uncoded 07/03/18 14:45 TAE Allergy Mild Swelling Uncoded 07/03/18 14:45 Home Medications: Ambulatory Orders Aspirin [Aspir-Low] 81 mg PO DAILY 11/07/14 Multivitamin [Daily Vitamin] 1 each PO DAILY tablet 11/07/14 Atorvastatin Ca [Lipitor] 10 mg PO HS 12/07/16 Levothyroxine [Synthroid -] 25 mcg PO DAILY 12/07/16 metFORMIN HCL [Metformin HCl] 2 tab PO ASDIR 12/07/16 Anemia: No Asthma: No Cancer: No Cardiac Disorders: No CVA: No COPD: No CHF: No Dementia: No Diabetes: Yes (DX 1989) GI Disorders: No Disorders: No HTN: Yes (DX 2003) Hypercholesterolemia: Yes (DX 2003) Liver Disease: No Seizures: No Thyroid Disease: Yes (HYPOTHYROIDISM) - Surgical History Abdominal Surgery: No Appendectomy: No Cardiac Surgery: No Cholecystectomy: No Lung Surgery: No Neurologic Surgery: No Orthopedic Surgery: Yes (EPIDURAL STERIOD INJECTION L4-L5) - Suicide/Smoking/Psychosocial Hx Smoking History: Former smoker Have you smoked in the past 12 months: No If you are a former smoker, when did you quit?: 30 YRS AGO Information on smoking cessation initiated: No Hx Alcohol Use: (occasional) Drug/Substance Use Hx: No Substance Use Type: None Hx Substance Use Treatment: No Review of Systems - Review of Systems Comments:: 07/03/18 15:56 Constitutional: No fevers, chills, fatigue, malaise HEENT: No Rhinorrhea, nasal congestion, visual changes Cardiovascular: No chest pain, syncope, palpitations, lightheadedness Respiratory: No Cough, SOB, Hemoptysis, Gastrointestinal: Abdominal pain, nausea, vomiting, constipation. No Diarrhea, Melena Genitourinary: No Dysuria, Frequency, Urgency, Hesitancy, Hematuria, Flank pain Musculoskeletal: No Myalgia, arthralgia Skin: No rashes, itching, bruising, pallor Neurologic: No Headache, Dizziness, Numbness, Weakness, or Tingling Psychiatric: No Hallucinations. No SI or HI *Physical Exam - Vital Signs Last Vital Signs Temp Pulse Resp BP Pulse Ox 98.1 F 98 H 18 157/83 99 07/03/18 14:45 07/03/18 14:45 07/03/18 14:45 07/03/18 14:45 07/03/18 14:45 - Physical Exam Comments: 07/03/18 15:56 General Appearance: Nourished. No Apparent Distress HEENT: No Pharyngeal Erythema, Tonsillar Exudate, Tonsillar Erythema Neck: No Cervical Lymphadenopathy Respiratory/Chest: Lungs Clear, Normal Breath Sounds. No Crackles, Rales, Rhonchi, Wheezing Cardiovascular: Regular Rhythm, Regular Rate. No Murmur, Gallops, Rubs Gastrointestinal/Abdominal: Diffuse tenderness to palpation on exam. No Guarding, Rebound Musculoskeletal: No CVA Tenderness Extremity: Normal Capillary Refill Integumentary: Normal Color, Dry, Warm Neurologic: Fully Oriented, Alert, Normal Mood/Affect, Normal Response, ED Treatment Course - LABORATORY CBC & Chemistry Diagram: 07/03/18 15:23 07/03/18 15:23 Medical Decision Making - Medical Decision Making 07/03/18 15:58 The patient is an 88 year old female with a history of HTN, HLD, DM, SBO who presents for evaluation of abdominal pain. Differential includes but is not limited to: SBO, Gastritis, Constipation, Pancreatitis, Infectious, Metabolic Derangement. Given the patient's history and physical exam, we are concerned about a SBO and will obtain a cbc, cmp, lipase, CT abdomen/pelvis to evaluate further. We will continue to monitor and reassess while here in the ED in the meantime. 07/03/18 18:33 CBC, cmp, lipase are unremarkable. CT abdomen/pelvic demonstrates findings consistent with a SBO as preliminarily read by our environmental technology professor radiologist. We have placed an NG tube for management. We discussed the case with Dr. Chung with surgery who will evaluate the patient in the morning. We discussed the case with the hospitalist team who accepted the patient for admission. *DC/Admit/Observation/Transfer Diagnosis at time of Disposition: Small bowel obstruction - Discharge Dispostion Condition at time of disposition: Stable Decision to Admit order: Yes - Referrals Referrals: Russell Piper MD [Primary Care Provider] - - Patient Instructions - Post Discharge Activity
--- NOTE | 2018-07-03 15:13 | PDOC ---
Attending Attestation - Resident Resident Name: Alfredo Jenkins - ED Attending Attestation I have performed the following: I have examined & evaluated the patient, The case was reviewed & discussed with the resident, I agree w/resident's findings & plan - HPI HPI: 07/03/18 15:11 88 y/o female with abdominal pain since yesterday evening with vomiting. History of small bowel obstruction with NGT in past. Denies fall, trauma, fever or chills. No SOB or chest pain. Feels similar to prior episodes. - Physicial Exam PE: 07/03/18 15:12 VSS HEENT: unremarkable Heart: RRR w/o mumur Lungs: CTA b/l, no wheezes rhonchi rales Abdomen: diffuse tenderness, decreased BS, no pulsatile mass noted EXT: no C/C/E Neuro: grossly intact no focal deficits noted - Medical Decision Making 07/03/18 18:00 Patient resting comfortably after 4 mg Morphine and Zofran [address] abdomen/pelvis with IV contrast shows SBO Will transfer to [facility] as per Dr. Lopez NGT will be placed Further orders as per Hospitalist Family in agreement with plan Case discussed with Resident Dr. Jenkins and agree with plan Final Dx: Small Bowel Obstruction
[2018-07-03 15:42] LABS: BASO % 2.3 % (0-2.0); EOS % 0.2 % (0-4.5); HEMATOCRIT 42.2 % (32.4-45.2); HEMOGLOBIN 13.6 GM/dl (10.7-15.3); LYMPH % 15.2 % (8-40); MCH 27.9 pg (25.7-33.7); MCHC 32.2 g/dl (32.0-36.0); MEAN CELL VOLUME 86.7 fl (80-96); MEAN PLT VOLUME 8.2 fl (7.5-11.1); MONO % 8.2 % (3.8-10.2); NEUT % 74.1 % (42.8-82.8); PLATELET COUNT 492 K/MM3 (134-434); RBC 4.87 M/mm3 (3.60-5.2); RDW 13.7 % (11.6-15.6); WHITE BLOOD COUNT 9.4 K/mm3 (4.0-10.8)
[2018-07-03 15:51] LABS: ALBUMIN 3.9 g/dl (3.5-5.0); ALK PHOS 44 U/L (32-92); ANION GAP 15 MMOL/L (8-16); BILIRUBIN,TOTAL 1.2 mg/dl (0.2-1.0); BLOOD UREA NITROGEN 14 mg/dl (7-18); CALCIUM 9.5 mg/dl (8.4-10.2); CHLORIDE 100 mmol/L (98-107); CO2 20 mmol/L (22-28); GLUCOSE,RANDOM 124 mg/dl (74-106); POTASSIUM 4.8 mmol/L (3.5-5.1); SGOT/AST 35 U/L (10-42); SGPT/ALT 16 U/L (10-40); SODIUM 135 mmol/L (136-145); TOT PROT 7.1 g/dl (6.4-8.3)
[2018-07-03] MEDS ORDERED: ONDANSETRON 4 MG/2 ML VIAL IVPUSH ONE (16:02)
[2018-07-03] MEDS ORDERED: morphine CARPU-JECT 4 MG/1 ML DISP.SYRIN IVPUSH ONE (16:02)
[2018-07-03] MEDS ORDERED: morphine SULFATE 4 MG/ML VIAL ONE (16:09)
[2018-07-03] MEDS ORDERED: ONDANSETRON 4 MG/2 ML VIAL ONE (16:10)
[2018-07-03] MEDS ORDERED: SODIUM CHLORIDE 1,000 ML IV STA (16:15)
[2018-07-03] MEDS ORDERED: LIDOCAINE HCL 2% JELLY (30 ML/TUBE) TP STA (17:51)
[2018-07-03] MEDS ORDERED: LIDOCAINE HCL 2% JELLY (5 ML/TUBE) ONE (17:52)
[2018-07-03 18:04] LABS: URINE APPEARANCE Clear; URINE BILIRUBIN Negative (NEGATIVE); URINE COLOR Yellow; URINE GLUCOSE (UA) Negative (NEGATIVE); URINE KETONE Trace (NEGATIVE); URINE LEUK ESTERASE 1+ (NEGATIVE); URINE NITRITE Negative (NEGATIVE); URINE PROTEIN Negative (NEGATIVE); URINE UROBILINOGEN 0.2 (0.2-1.0)
[2018-07-03 18:05] LABS: LIPASE 356 U/L (73-393)
[2018-07-03 18:34] LABS: URINE RBC 0-2 /hpf (0-3)
[2018-07-03 18:35] LABS: AMORP URATES NONE SEEN /hpf (NONE SEEN); EPI CELLS 1+ /HPF; URINE BACTERIA NONE SEEN /hpf (NEGATIVE)
--- NOTE | 2018-07-03 20:11 | CONSULT ---
Consult Consult Specialty:: General surgery Reason for Consultation:: small bowel obstruction - History of Present Illness Chief Complaint: abdominal pain and vomiting History of Present Illness: 88yo female with PMH HTN, HLD, DM, SBO who presents for evaluation of abdominal pain. The patient reports a 2 day history of worsening diffuse abdominal pain that she states feels similar to her prior SBOs. She notes that her last bowel movement was 2 days ago and she has experienced 2-3 episodes of vomiting since that time prompting her presentation to the ED for further evaluation. She notes that she has never had abdominal surgery and her SBOs resolve usually after NG tube. She otherwise denies fevers, chills, SOB, chest pain, or changes with urination we were asked to re-assess. - History Source History Provided By: Patient, Family Member, Medical Record Limitations to Obtaining History: No Limitations - Past Medical History Endocrine: Yes: Diabetes Mellitus, Hypothyroidism Additional Medical History: obesity - Alcohol/Substance Use Hx Alcohol Use: (occasional) - Smoking History Smoking history: Former smoker Have you smoked in the past 12 months: No If you are a former smoker, when did you quit?: 30 YRS AGO - Social History History of Recent Travel: No Home Medications - Allergies Allergies/Adverse Reactions: Allergies Allergy/AdvReac Type Severity Reaction Status Date / Time Penicillins Allergy Intermediate rash Verified 07/03/18 14:45 poison [place] extract Allergy Intermediate Rash Verified 07/03/18 14:45 [Poison [place] Extract] oxycodone Allergy Verified 07/03/18 16:14 Bee stings Allergy Severe Swelling Uncoded 07/03/18 14:45 TAE Allergy Mild Swelling Uncoded 07/03/18 14:45 - Home Medications Home Medications: Ambulatory Orders Aspirin [Aspir-Low] 81 mg PO DAILY 11/07/14 Multivitamin [Daily Vitamin] 1 each PO DAILY tablet 11/07/14 Atorvastatin Ca [Lipitor] 10 mg PO HS 12/07/16 Levothyroxine [Synthroid -] 25 mcg PO DAILY 12/07/16 metFORMIN HCL [Metformin HCl] 2 tab PO ASDIR 12/07/16 Review of Systems - Review of Systems Constitutional: denies: Chills, Fever Eyes: denies: Blind Spots, Recent Change in Vision HENT: denies: Difficult Swallowing Respiratory: denies: Cough, SOB Gastrointestinal: denies: Abdominal Pain, Bloating, Constipation, Diarrhea Genitourinary: denies: Discharge, Dysuria Breasts: reports: No Symptoms Reported. denies: Pain Musculoskeletal: denies: Extremity Pain, Muscle Pain, Muscle Weakness Integumentary: denies: Pruritis, Rash, Wound Neurological: denies: Seizure, Syncope Endocrine: denies: Unexplained Weight Gain, Unexplained Weight Loss Hematology/Lymphatic: denies: Easily Bruised, Excessive Bleeding Psychiatric: denies: Anxiety, Depression Physical Exam Vital Signs: Vital Signs Temperature 97.8 F 07/03/18 19:22 Pulse Rate 86 07/03/18 19:22 Respiratory Rate 16 07/03/18 19:22 Blood Pressure 131/62 07/03/18 19:22 O2 Sat by Pulse Oximetry (%) 97 07/03/18 19:22 Eyes: Yes: Conjunctiva Clear, EOM Intact HENT: Yes: Atraumatic, Normocephalic Neck: Yes: Supple, Trachea Midline Cardiovascular: Yes: Regular Rate and Rhythm Respiratory: Yes: Regular, CTA Bilaterally Gastrointestinal: Yes: Normal Bowel Sounds, Soft, Abdomen, Obese, Vomiting (NGT in place). No: Melena, Pulsatile Mass, Rectal Bleeding, Splenomegaly, Tenderness, Tenderness, Epigastrium, Tenderness, Rebound ...Rectal Exam: Yes: Deferred Renal/: No: CVA Tenderness - Left, CVA Tenderness - Right Musculoskeletal: No: Muscle Pain, Muscle Weakness Extremities: Yes: Cool. No: Cyanosis Edema: No Peripheral Pulses WNL: Yes Integumentary: No: Jaundice Neurological: Yes: Alert, Oriented Psychiatric: Yes: Alert, Oriented Labs: CBC, BMP 07/03/18 15:23 07/03/18 15:23 Imaging - Results Cat Scan: Report Reviewed, Image Reviewed (small bowel distension) Problem List - Problems (1) Small bowel obstruction Assessment/Plan: 88yo female MMP transient partial SBO vs. gastroenteritis after a few rich meals during the holiday, now resolved on imaging, no need for acute surgical intervention. Discontinue NGT Advance diet as tolerated GI evaluation for upper and lower endoscopy antiemetic therapy Bowel regimen by GI Thank you for the opportunity to participate in the care of this patient. Code(s): K56.69 - OTHER INTESTINAL OBSTRUCTION * DO NOT USE * (2) Abdominal pain, chronic, right lower quadrant Code(s): R10.31 - RIGHT LOWER QUADRANT PAIN; G89.29 - OTHER CHRONIC PAIN (3) Dehydration, moderate Code(s): E86.0 - DEHYDRATION (4) HLD (hyperlipidemia) Code(s): E78.5 - HYPERLIPIDEMIA, UNSPECIFIED Qualifiers: Hyperlipidemia type: pure hypercholesterolemia Qualified Code(s): E78.00 - Pure hypercholesterolemia, unspecified; E78.0 - Pure hypercholesterolemia (5) HTN (hypertension) Code(s): I10 - ESSENTIAL (PRIMARY) HYPERTENSION Qualifiers: Hypertension type: essential hypertension Qualified Code(s): I10 - Essential (primary) hypertension (6) Nausea & vomiting Code(s): R11.2 - NAUSEA WITH VOMITING, UNSPECIFIED Qualifiers: Vomiting type: cyclical vomiting Vomiting Intractability: non-intractable Qualified Code(s): G43.A0 - Cyclical vomiting, not intractable
--- NOTE | 2018-07-04 10:19 | HP ---
CHIEF COMPLAINT: Abdominal pain x 2 days PCP: Dr. Piper HISTORY OF PRESENT ILLNESS: 88 year-old female with a PMH significant for HTN, HLD, NIDDM, hypothyroidism, diverticulitis, and two previous small bowel obstructions (12/08-12/11/16, 07/02-). Two days ago, on Wednesday night, developed diffuse, abdominal pain and vomiting which felt like previous SBOs. The abdominal pain continued intermittently on Wednesday and Wednesday. When she did not improve today she came to the ED. Patient denies fever, cough, sweats, chills. Denies dysuria, hematuria, urgency, frequency. Denies diarrhea, last BM was Wednesday morning. Passed a little flatus today. Denies history of any type of abdominal surgery or intervention. References in the EMR to patient having undergone a hysterectomy are in error. ER course was notable for: (1) afebrile, no leukocytosis (2) CTAP: moderate grade SBO Recent Travel: No PAST MEDICAL HISTORY: Hypertension Hyperlipidemia NIDDM Hypothyroidism Diverticulitis Recurrent SBOs PAST SURGICAL HISTORY: Epidural steroid injection Social History: Smoking: quit 30 years ago Alcohol: occasional Drugs: no Family History: Allergies Penicillins Allergy (Intermediate, Verified 07/03/18 14:45) rash poison [place] extract [Poison [place] Extract] Allergy (Intermediate, Verified 14:45) Rash oxycodone Allergy (Verified 07/03/18 16:14) Bee stings Allergy (Severe, Uncoded 07/03/18 14:45) Swelling TAE Allergy (Mild, Uncoded 07/03/18 14:45) Swelling HOME MEDICATIONS: Home Medications Medication Instructions Recorded Aspirin [Aspir-Low] 81 mg PO DAILY 11/07/14 Multivitamin [Daily Vitamin] 1 each PO DAILY tablet 11/07/14 Atorvastatin Ca [Lipitor] 10 mg PO HS 12/07/16 Levothyroxine [Synthroid -] 25 mcg PO DAILY 12/07/16 metFORMIN HCL [Metformin HCl] 2 tab PO ASDIR 12/07/16 REVIEW OF SYSTEMS CONSTITUTIONAL: Absent: fever, chills, diaphoresis, generalized weakness, malaise, loss of appetite, weight change HEENT: Absent: rhinorrhea, nasal congestion, throat pain, throat swelling, difficulty swallowing, mouth swelling, ear pain, eye pain, visual changes CARDIOVASCULAR: Absent: chest pain, syncope, palpitations, irregular heart rate, lightheadedness , peripheral edema RESPIRATORY: Absent: cough, shortness of breath, dyspnea with exertion, orthopnea, wheezing, stridor, hemoptysis GASTROINTESTINAL: +abdominal pain, vomiting Absent: abdominal pain, abdominal distension, nausea, vomiting, diarrhea, constipation, melena, hematochezia GENITOURINARY: Absent: dysuria, frequency, urgency, hesitancy, hematuria, flank pain, genital pain MUSCULOSKELETAL: Absent: myalgia, arthralgia, joint swelling, back pain, neck pain SKIN: Absent: rash, itching, pallor HEMATOLOGIC/IMMUNOLOGIC: Absent: easy bleeding, easy bruising, lymphadenopathy, frequent infections ENDOCRINE: Absent: unexplained weight gain, unexplained weight loss, heat intolerance, cold intolerance NEUROLOGIC: Absent: headache, focal weakness or paresthesias, dizziness, unsteady gait, seizure, mental status changes, bladder or bowel incontinence PSYCHIATRIC: Absent: anxiety, depression, suicidal or homicidal ideation, hallucinations. PHYSICAL EXAMINATION Vital Signs - 24 hr 07/03/18 07/03/18 07/03/18 14:45 19:22 21:00 Temperature 98.1 F 97.8 F 97.8 F Pulse Rate 98 H 81 Pulse Rate [ 86 Left Apical] Respiratory 18 16 18 Rate Blood Pressure 157/83 122/52 L Blood Pressure 131/62 [Right Arm] O2 Sat by Pulse 99 97 99 Oximetry (%) GENERAL: Awake, alert, and fully oriented, in no acute distress. EYES: Pupils equal, round and reactive to light, extraocular movements intact, sclera anicteric, conjunctiva clear. No lid lag. EARS, NOSE, THROAT: NGT in place, dark brown fluid NECK: Normal range of motion, supple without lymphadenopathy, JVD, or masses. LUNGS: Breath sounds equal, clear to auscultation bilaterally. No wheezes, and no crackles. No accessory muscle use. HEART: Regular rate and rhythm, normal S1 and S2 without murmur, rub or gallop. ABDOMEN: Diffusely tender, not distended MUSCULOSKELETAL: Normal range of motion at all joints. No bony deformities or tenderness. No CVA tenderness. UPPER EXTREMITIES: 2+ pulses, warm, well-perfused. No cyanosis. No clubbing. No peripheral edema. LOWER EXTREMITIES: 2+ pulses, warm, well-perfused. No calf tenderness. No peripheral edema. NEUROLOGICAL: Cranial nerves II-XII intact. Normal speech. Laboratory Results - last 24 hr 07/03/18 07/03/18 07/03/18 15:23 15:23 17:41 WBC 9.4 RBC 4.87 Hgb 13.6 Hct 42.2 MCV 86.7 MCH 27.9 MCHC 32.2 RDW 13.7 Plt Count 492 H MPV 8.2 Absolute Neuts (auto) 7.0 Neutrophils % 74.1 Lymphocytes % 15.2 Monocytes % 8.2 Eosinophils % 0.2 Basophils % 2.3 H Sodium 135 L Potassium 4.8 Chloride 100 Carbon Dioxide 20 L Anion Gap 15 BUN 14 Creatinine 1.0 Creat Clearance w eGFR 52.57 Random Glucose 124 H Calcium 9.5 Total Bilirubin 1.2 H AST 35 D ALT 16 Alkaline Phosphatase 44 Total Protein 7.1 Albumin 3.9 Lipase 356 Urine Color Yellow Urine Appearance Clear Urine pH 5.0 Ur Specific Russell <= 1.005 L Urine Protein Negative Urine Glucose (UA) Negative Urine Ketones Trace Urine Blood Negative Urine Nitrite Negative Urine Bilirubin Negative Urine Urobilinogen 0.2 Ur Leukocyte Esterase 1+ H Urine RBC 0-2 Urine WBC 10-20 Ur Epithelial Cells 1+ Amorphous Urates None seen Urine Bacteria None seen ASSESSMENT/PLAN 88 year-old female with a PMH significant for HTN, HLD, NIDDM, hypothyroidism, diverticulitis, and two previous small bowel obstructions (12/08-12/11/16, 07/02-). Admitted for SBO. SBO --07/03 CTAP: moderate grade SBO at mid-ileal level; small amount of ascites about the liver; fatty liver; cholelithiasis --NGT in place to LWS ~300cc's dark brown fluid out --NPO, IV fluids --Zofran, IV Tylenol PRN --hold PO meds for now Asymptomatic pyuria --afebrile, no leukocytosis, negative culture --no antibiotics Hypertension --BP stable Hyperlipidemia --holding PO meds NIDDM --Novolog sliding scale coverage Hypothryoidism --TSH wnl --holding PO meds Diverticultitis --no acute issues FEN Fluids: NS @ 125mL/hr Electrolytes: replete as indicated Nutrition: NPO DVT prophylaxis: hold chemical prophylaxis pending surgical consult; oob, ambulation, SCDs Dispo: continues to require inpatient care. Full code. Visit type - Emergency Visit Emergency Visit: Yes ED Registration Date: 07/03/18 Care time: The patient presented to the Emergency Department on the above date and was hospitalized for further evaluation of their emergent condition. - New Patient This patient is new to me today: Yes Date on this admission: 07/05/18 - Critical Care Critical Care patient: No
--- NOTE | 2018-07-04 10:59 | EKG ---
Test Reason : Blood Pressure : / mmHG Vent. Rate : 090 BPM Atrial Rate : 090 BPM P-R Int : 146 ms QRS Dur : 070 ms QT Int : 350 ms P-R-T Axes : 074 -16 018 degrees QTc Int : 428 ms NORMAL SINUS RHYTHM NORMAL ECG WHEN COMPARED WITH ECG OF 02-JUL-2017 19:03, NO SIGNIFICANT CHANGE WAS FOUND Confirmed by ANTOINE REDD MD ([id number]) on 07/04/2018 10:59:07 AM Referred By: VINICIO SANDERSON Confirmed By:ANTOINE REDD MD
[2018-07-04] MEDS ORDERED: ACETAMINOPHEN 1000 MG/100 ML VIAL (NON FORMULARY) IVPB PRN (15:07)
[2018-07-04] MEDS ORDERED: SODIUM CHLORIDE 1,000 ML IV SCH (17:30)
[2018-07-05 08:15] LABS: BASO % 0.4 % (0-2.0); EOS % 1.9 % (0-4.5); HEMOGLOBIN 11.8 GM/dl (10.7-15.3); LYMPH % 25.5 % (8-40); MCH 28.4 pg (25.7-33.7); MCHC 32.7 g/dl (32.0-36.0); MEAN CELL VOLUME 86.9 fl (80-96); MEAN PLT VOLUME 7.8 fl (7.5-11.1); MONO % 7.5 % (3.8-10.2); NEUT % 64.7 % (42.8-82.8); PLATELET COUNT 391 K/MM3 (134-434); RBC 4.15 M/mm3 (3.60-5.2); RDW 13.5 % (11.6-15.6)
--- NOTE | 2018-07-05 08:21 | PN ---
Physical Exam: SUBJECTIVE: Patient seen and examined OBJECTIVE: Vital Signs Period Temp Pulse Resp BP Sys/Contreras Pulse Ox Last 24 Hr 97.8 F-98.9 F 74-84 16-18 127-148/54-63 95-95 GENERAL: Awake, alert, and fully oriented, in no acute distress. HEENT: NGT in place LUNGS: Breath sounds equal, clear to auscultation bilaterally. No wheezes, and no crackles. No accessory muscle use. HEART: Regular rate and rhythm, normal S1 and S2 without murmur, rub or gallop. ABDOMEN: Diffusely tender, not distended MUSCULOSKELETAL: Normal range of motion at all joints. No bony deformities or tenderness. No CVA tenderness. UPPER EXTREMITIES: 2+ pulses, warm, well-perfused. No cyanosis. No clubbing. No peripheral edema. LOWER EXTREMITIES: 2+ pulses, warm, well-perfused. No calf tenderness. No peripheral edema. NEUROLOGICAL: Cranial nerves II-XII intact. Normal speech. Laboratory Results - last 24 hr 07/04/18 17:50 Blood Type A POSITIVE Antibody Screen Negative Active Medications Generic Name Dose Route Start Last Admin Trade Name Freq PRN Reason Stop Dose Admin Acetaminophen 1,000 mg 07/04/18 15:07 07/04/18 15:32 Ofirmev Injection - IVPB 1,000 mg Q6H PRN Administration PAIN Sodium Chloride 1,000 mls @ 125 mls/hr 07/04/18 17:30 Normal Saline - IV ASDIR [facility] ASSESSMENT/PLAN: 88 year-old female with a PMH significant for HTN, HLD, NIDDM, hypothyroidism, diverticulitis, and two previous small bowel obstructions (12/08-12/11/16, 07/02-). Admitted for SBO. Acute SBO --07/03 CTAP: moderate grade SBO at mid-ileal level; small amount of ascites about the liver; fatty liver; cholelithiasis --07/05 Abd film: nonspecific, nonobstructive gas pattern --NGT tube pulled by Dr. Chung --can restart PO meds --advance diet --Zofran, Tylenol PRN Recurrent SBO --unusual for three SBOs for this patient with no abdominal surgical history --will need GI outpatient workup Asymptomatic pyuria --afebrile, no leukocytosis, negative culture --no antibiotics Hypertension --BP stable --restart home lisinopril Hyperlipidemia --restart Lipitor NIDDM --Novolog sliding scale coverage Hypothryoidism --TSH wnl --restart levothyroxine Diverticultitis --no acute issues Hypomagnesemia --replete FEN Fluids: NS @ 50mL/hr Electrolytes: replete as indicated Nutrition: clears DVT prophylaxis: start subq lovenox Dispo: continues to require inpatient care. Full code. Visit type - Emergency Visit Emergency Visit: Yes ED Registration Date: 07/03/18 Care time: The patient presented to the Emergency Department on the above date and was hospitalized for further evaluation of their emergent condition. - New Patient This patient is new to me today: No - Critical Care Critical Care patient: No
[2018-07-05 08:33] LABS: ALBUMIN 3.2 g/dl (3.5-5.0); ALK PHOS 40 U/L (32-92); ANION GAP 12 MMOL/L (8-16); BILIRUBIN,TOTAL 1.1 mg/dl (0.2-1.0); BLOOD UREA NITROGEN 10 mg/dl (7-18); CALCIUM 8.7 mg/dl (8.4-10.2); CHLORIDE 105 mmol/L (98-107); CO2 23 mmol/L (22-28); CREATININE 0.8 mg/dl (0.6-1.3); GLUCOSE,RANDOM 77 mg/dl (74-106); MAGNESIUM 1.5 mg/dL (1.8-2.4); POTASSIUM 4.1 mmol/L (3.5-5.1); SGOT/AST 23 U/L (10-42); SGPT/ALT 15 U/L (10-40); SODIUM 140 mmol/L (136-145); TOT PROT 5.9 g/dl (6.4-8.3)
[2018-07-05 08:58] LABS: ACTIVATED PTT 25.3 SECONDS (25.2-36.5)
[2018-07-05 09:02] LABS: INR 1.05 (0.82-1.09); PROTHROMBIN TIME (PATIENT) 11.7 SEC (10.2-13.0)
[2018-07-05] MEDS ORDERED: MAGNESIUM SULF 50% (8.12 MEQ/2 ML-1 GM VIAL) IVPB ONE (09:52)
[2018-07-05] MEDS ORDERED: MAGNESIUM SULFATE IN WATER 2 GM/50 ML IVPB IVPB ONE (10:30)
[2018-07-05] MEDS ORDERED: ONDANSETRON 4 MG/2 ML VIAL IVPUSH PRN (12:28)
[2018-07-05] MEDS: PANTOPRAZOLE 40 MG TABLET (FP) PO SCH (14:15)
[2018-07-05] MEDS ORDERED: SODIUM CHLORIDE 1,000 ML IV SCH (15:00)
[2018-07-05] MEDS: LISINOPRIL 10 MG TABLET (FP) PO SCH (15:45)
[2018-07-05] MEDS: ENOXAPARIN NA (PORCINE) 40 MG/0.4 ML DISP.SYRIN SQ SCH ×2 (15:45→16:01)
--- NOTE | 2018-07-05 17:13 | PN ---
Progress Note, Physician Chief Complaint: abdominal pain and vomiting History of Present Illness: 88yo female with PMH HTN, HLD, DM, SBO who presents for evaluation of abdominal pain. The patient reports a 2 day history of worsening diffuse abdominal pain that she states feels similar to her prior SBOs. resolved on imgiang with 1 day of NGT deompression - Current Medication List Current Medications: Active Medications Acetaminophen (Ofirmev Injection -) 1,000 mg IVPB Q6H PRN PRN Reason: PAIN Last Admin: 07/04/18 15:32 Dose: 1,000 mg Atorvastatin Calcium (Lipitor -) 10 mg PO HS [facility] Enoxaparin Sodium (Lovenox -) 40 mg SQ DAILY [facility] Last Admin: 07/05/18 16:01 Dose: Not Given Sodium Chloride (Normal Saline -) 1,000 mls @ 50 mls/hr IV ASDIR [facility] Last Admin: 07/05/18 15:15 Dose: 50 mls/hr Levothyroxine Sodium (Synthroid -) 25 mcg PO DAILY@0700 [facility] Lisinopril (Prinivil) 10 mg PO DAILY [facility] Last Admin: 07/05/18 15:45 Dose: 10 mg Ondansetron HCl (Zofran Injection) 4 mg IVPUSH Q8H PRN PRN Reason: NAUSEA Pantoprazole Sodium (Protonix -) 40 mg PO DAILY [facility] Last Admin: 07/05/18 14:15 Dose: 40 mg - Objective Vital Signs: Vital Signs Temperature 98.9 F 07/05/18 14:05 Pulse Rate 85 07/05/18 14:05 Respiratory Rate 16 07/05/18 14:05 Blood Pressure 147/57 L 07/05/18 14:05 O2 Sat by Pulse Oximetry (%) 95 07/05/18 14:05 Constitutional: Yes: Well Nourished, No Distress, Calm, Obese Eyes: Yes: Conjunctiva Clear, EOM Intact HENT: Yes: Atraumatic, Normocephalic Neck: Yes: Supple, Trachea Midline Cardiovascular: Yes: Regular Rate and Rhythm, S1, S2 Respiratory: Yes: Regular, CTA Bilaterally Gastrointestinal: Yes: Normal Bowel Sounds, Soft, Abdomen, Obese. No: Distention, Tenderness, Tenderness, Epigastrium, Tenderness, Rebound ...Rectal Exam: Yes: Deferred Genitourinary: No: CVA Tenderness - Left, CVA Tenderness - Right Musculoskeletal: No: Muscle Pain, Muscle Weakness Extremities: No: Cool, Cyanosis Edema: No Peripheral Pulses WNL: Yes Peripheral Pulses: Left Radial: 2+, Right Radial: 2+, Left Doralis Pedis: 2+, Right Dorsalis Pedis: 2+ Integumentary: No: Jaundice, Pressure Ulcer, Rash Neurological: Yes: Alert, Oriented Psychiatric: Yes: Alert, Oriented Labs: CBC, BMP 07/05/18 07:43 07/05/18 07:43 INR, PTT INR 1.05 (0.82-1.09) 07/05/18 07:43 Problem List - Problems (1) Small bowel obstruction Assessment/Plan: 88yo female MMP transient partial SBO vs. gastroenteritis after a few rich meals during the holiday, now resolved on imaging, no need for acute surgical intervention. Discontinue NGT Advance diet as tolerated GI evaluation for upper and lower endoscopy antiemetic therapy Bowel regimen by GI re-call as needed Code(s): K56.69 - OTHER INTESTINAL OBSTRUCTION * DO NOT USE * (2) Abdominal pain, chronic, right lower quadrant Code(s): R10.31 - RIGHT LOWER QUADRANT PAIN; G89.29 - OTHER CHRONIC PAIN (3) HLD (hyperlipidemia) Code(s): E78.5 - HYPERLIPIDEMIA, UNSPECIFIED Qualifiers: Hyperlipidemia type: pure hypercholesterolemia Qualified Code(s): E78.00 - Pure hypercholesterolemia, unspecified; E78.0 - Pure hypercholesterolemia (4) HTN (hypertension) Code(s): I10 - ESSENTIAL (PRIMARY) HYPERTENSION Qualifiers: Hypertension type: essential hypertension Qualified Code(s): I10 - Essential (primary) hypertension (5) Nausea & vomiting Code(s): R11.2 - NAUSEA WITH VOMITING, UNSPECIFIED Qualifiers: Vomiting type: cyclical vomiting Vomiting Intractability: non-intractable Qualified Code(s): G43.A0 - Cyclical vomiting, not intractable
[2018-07-05] MEDS ORDERED: ATORVASTATIN CA 10 MG TABLET (FP) PO SCH (22:00)
[2018-07-06] MEDS ORDERED: LEVOTHYROXINE NA 25 MCG TABLET (FP) PO SCH (07:00)
--- NOTE | 2018-07-06 08:11 | PN ---
Physical Exam: SUBJECTIVE: Patient seen and examined. Feels well, no complaints. Had BM last night and this morning. OBJECTIVE: Vital Signs Period Temp Pulse Resp BP Sys/Contreras Pulse Ox Last 24 Hr 98.0 F-98.9 F 76-85 16-20 133-147/57-66 95-98 GENERAL: The patient is awake, alert, and fully oriented, in no acute distress. HEAD: Normal with no signs of trauma. EYES: PERRL, extraocular movements intact, sclera anicteric, conjunctiva clear. No ptosis. ENT: Ears normal, nares patent, oropharynx clear without exudates, moist mucous membranes. NECK: Trachea midline, full range of motion, supple. LUNGS: Breath sounds equal, clear to auscultation bilaterally, no wheezes, no crackles, no accessory muscle use. HEART: Regular rate and rhythm, S1, S2 without murmur, rub or gallop. ABDOMEN: Soft, mildly tender to deep palpation in RUQ and RLQ, nondistended, normoactive bowel sounds, no guarding, no rebound, no hepatosplenomegaly, no masses. EXTREMITIES: 2+ pulses, warm, well-perfused, no edema. NEUROLOGICAL: Cranial nerves II through XII grossly intact. Normal speech, gait not observed. PSYCH: Normal mood, normal affect. SKIN: Warm, dry, normal turgor, no rashes or lesions noted Laboratory Results - last 24 hr 07/05/18 07/05/18 07/05/18 07:43 07:43 07:43 WBC 6.0 RBC 4.15 Hgb 11.8 Hct 36.0 MCV 86.9 MCH 28.4 MCHC 32.7 RDW 13.5 Plt Count 391 MPV 7.8 Absolute Neuts (auto) 4.0 Neutrophils % 64.7 Lymphocytes % 25.5 Monocytes % 7.5 Eosinophils % 1.9 Basophils % 0.4 PT with INR 11.7 INR 1.05 PTT (Actin FS) 25.3 Sodium 140 Potassium 4.1 Chloride 105 Carbon Dioxide 23 Anion Gap 12 BUN 10 Creatinine 0.8 Creat Clearance w eGFR > 60 POC Glucometer Random Glucose 77 D Calcium 8.7 Magnesium 1.5 L Total Bilirubin 1.1 H AST 23 D ALT 15 Alkaline Phosphatase 40 Total Protein 5.9 L Albumin 3.2 L TSH 2.86 11/07/05/18 07/05/18 12:01 16:30 21:19 WBC RBC Hgb Hct MCV MCH MCHC RDW Plt Count MPV Absolute Neuts (auto) Neutrophils % Lymphocytes % Monocytes % Eosinophils % Basophils % PT with INR INR PTT (Actin FS) Sodium Potassium Chloride Carbon Dioxide Anion Gap BUN Creatinine Creat Clearance w eGFR POC Glucometer 62 104 98 Random Glucose Calcium Magnesium Total Bilirubin AST ALT Alkaline Phosphatase Total Protein Albumin TSH 07/06/18 06:04 WBC RBC Hgb Hct MCV MCH MCHC RDW Plt Count MPV Absolute Neuts (auto) Neutrophils % Lymphocytes % Monocytes % Eosinophils % Basophils % PT with INR INR PTT (Actin FS) Sodium Potassium Chloride Carbon Dioxide Anion Gap BUN Creatinine Creat Clearance w eGFR POC Glucometer 96 Random Glucose Calcium Magnesium Total Bilirubin AST ALT Alkaline Phosphatase Total Protein Albumin TSH Active Medications Generic Name Dose Route Start Last Admin Trade Name Freq PRN Reason Stop Dose Admin Acetaminophen 1,000 mg 07/04/18 15:07 07/04/18 15:32 Ofirmev Injection - IVPB 1,000 mg Q6H PRN Administration PAIN Atorvastatin Calcium 10 mg 07/05/18 22:00 07/05/18 21:18 Lipitor - PO 10 mg HS KAR Administration Enoxaparin Sodium 40 mg 07/05/18 14:45 07/05/18 16:01 Lovenox - SQ Not Given DAILY KAR Sodium Chloride 1,000 mls @ 50 mls/hr 07/05/18 15:00 07/05/18 15:15 Normal Saline - IV 50 mls/hr ASDIR KAR Administration Levothyroxine Sodium 25 mcg 07/06/18 07:00 07/06/18 06:09 Synthroid - PO 25 mcg DAILY@0700 KAR Administration Lisinopril 10 mg 07/05/18 14:45 07/05/18 15:45 Prinivil PO 10 mg DAILY KAR Administration Ondansetron HCl 4 mg 07/05/18 12:28 Zofran Injection IVPUSH Q8H PRN NAUSEA Pantoprazole Sodium 40 mg 07/05/18 13:15 07/05/18 14:15 Protonix - PO 40 mg DAILY KAR Administration Imagin/25 CTAP: moderate grade SBO at mid-ileal level; small amount of ascites about the liver; fatty liver; cholelithiasis 07/05 AXR: nonspecific, nonobstructive gas pattern ASSESSMENT/PLAN: 88 year-old female with HTN, HLD, NIDDM, hypothyroidism, diverticulitis, and two previous small bowel obstructions (12/08-12/11/16, 07/02-) admitted with SBO. 1. SBO -Resolved with 1 day of ngt -Tolerating clears -Moving bowels -Advance diet -Follow up with GI for endoscopy/colonoscopy - patient feels comfortable and capable of doing this outpatient 2. Pyuria -Negative culture, asymptomatic -No indication to treat 3. HTN -At goal -Continue lisinopril 4. HLD -Continue atorvastatin 5. NIDDM -Re-start Metformin 6. Hypothyroidism -Continue levothyroxine 7. F/E/N -Dc fluids -Trial of regular diet 8. Ppx -Sqh DISPO: Home with GI followup when tolerating diet
[2018-07-06 08:12] LABS: BASO % 0.4 % (0-2.0); EOS % 2.1 % (0-4.5); HEMATOCRIT 34.4 % (32.4-45.2); HEMOGLOBIN 11.1 GM/dl (10.7-15.3); LYMPH % 20.1 % (8-40); MCH 28.3 pg (25.7-33.7); MCHC 32.4 g/dl (32.0-36.0); MEAN CELL VOLUME 87.1 fl (80-96); MEAN PLT VOLUME 7.7 fl (7.5-11.1); MONO % 10.4 % (3.8-10.2); PLATELET COUNT 355 K/MM3 (134-434); RBC 3.94 M/mm3 (3.60-5.2); RDW 13.4 % (11.6-15.6); WHITE BLOOD COUNT 5.8 K/mm3 (4.0-10.8)
[2018-07-06 08:36] LABS: ALK PHOS 41 U/L (32-92); ANION GAP 7 MMOL/L (8-16); BILIRUBIN,TOTAL 0.3 mg/dl (0.2-1.0); BLOOD UREA NITROGEN 7 mg/dl (7-18); CALCIUM 8.6 mg/dl (8.4-10.2); CHLORIDE 106 mmol/L (98-107); CO2 26 mmol/L (22-28); CREATININE 0.8 mg/dl (0.6-1.3); GLUCOSE,RANDOM 114 mg/dl (74-106); MAGNESIUM 1.8 mg/dL (1.8-2.4); PHOSPHOROUS 2.4 mg/dl (2.5-4.6); POTASSIUM 3.8 mmol/L (3.5-5.1); SGOT/AST 21 U/L (10-42); SGPT/ALT 13 U/L (10-40); SODIUM 139 mmol/L (136-145); TOT PROT 5.6 g/dl (6.4-8.3)
[2018-07-06] MEDS: PANTOPRAZOLE 40 MG TABLET (FP) PO SCH (09:23)
[2018-07-06] MEDS: LISINOPRIL 10 MG TABLET (FP) PO SCH (09:23)
[2018-07-06] MEDS: ENOXAPARIN NA (PORCINE) 40 MG/0.4 ML DISP.SYRIN SQ SCH (09:23)
[2018-07-06 09:54] VITALS: BP 144/55; PULSE 74; TEMP 97.5
--- NOTE | 2018-07-06 12:58 | DS ---
Physical Exam: SUBJECTIVE: Patient seen and examined OBJECTIVE: Vital Signs Period Temp Pulse Resp BP Sys/Contreras Pulse Ox Last 24 Hr 97.5 F-98.9 F 74-85 16-20 133-147/55-66 95-99 PHYSICAL EXAM GENERAL: The patient is awake, alert, and fully oriented, in no acute distress. HEAD: Normal with no signs of trauma. EYES: PERRL, extraocular movements intact, sclera anicteric, conjunctiva clear. ENT: Ears normal, nares patent, oropharynx clear without exudates, moist mucous membranes. NECK: Trachea midline, full range of motion, supple. LUNGS: Breath sounds equal, clear to auscultation bilaterally, no wheezes, no crackles, no accessory muscle use. HEART: Regular rate and rhythm, S1, S2 without murmur, rub or gallop. ABDOMEN: Soft, nontender, nondistended, normoactive bowel sounds, no guarding, no rebound, no hepatosplenomegaly, no masses. EXTREMITIES: 2+ pulses, warm, well-perfused, no edema. NEUROLOGICAL: Cranial nerves II through XII grossly intact. Normal speech, gait not observed. PSYCH: Normal mood, normal affect. SKIN: Warm, dry, normal turgor, no rashes or lesions noted. LABS Laboratory Results - last 24 hr 07/05/18 07/05/18 07/06/18 16:30 21:19 06:04 WBC RBC Hgb Hct MCV MCH MCHC RDW Plt Count MPV Absolute Neuts (auto) Neutrophils % Lymphocytes % Monocytes % Eosinophils % Basophils % Sodium Potassium Chloride Carbon Dioxide Anion Gap BUN Creatinine Creat Clearance w eGFR POC Glucometer 104 98 96 Random Glucose Calcium Phosphorus Magnesium Total Bilirubin AST ALT Alkaline Phosphatase Total Protein Albumin 07/06/18 07/06/18 07/06/18 07:52 07:52 11:14 WBC 5.8 RBC 3.94 Hgb 11.1 Hct 34.4 MCV 87.1 MCH 28.3 MCHC 32.4 RDW 13.4 Plt Count 355 MPV 7.7 Absolute Neuts (auto) 3.9 Neutrophils % 67.0 Lymphocytes % 20.1 Monocytes % 10.4 H Eosinophils % 2.1 Basophils % 0.4 Sodium 139 Potassium 3.8 Chloride 106 Carbon Dioxide 26 Anion Gap 7 L BUN 7 Creatinine 0.8 Creat Clearance w eGFR > 60 POC Glucometer 137 Random Glucose 114 H D Calcium 8.6 Phosphorus 2.4 L Magnesium 1.8 Total Bilirubin 0.3 AST 21 ALT 13 Alkaline Phosphatase 41 Total Protein 5.6 L Albumin 3.0 L HOSPITAL COURSE: Date of Admission:07/03/18 Date of Discharge: 07/06/18 Minutes to complete discharge: 30 Discharge Summary Reason For Visit: SMALL BOWEL OBSTRUCTION Condition: Improved - Instructions Diet, Activity, Other Instructions: -Rest and stay well-hydrated -Eat lightly for the next several days and increase your intake as you are feeling better -It is important that you follow up with a wholesale loan processor for further evaluation, likely including endoscopy/colonoscopy, to determine the reason for your repeated obstructions. A referral is enclosed, or you may use a different wholesale loan processor of your choosing. -Return for constipation, nausea/vomiting, abdominal pain, or any other concerning symptoms Referrals: Russell Piper MD [Primary Care Provider] - Disposition: HOME - Home Medications Comprehensive Discharge Medication List: Ambulatory Orders Aspirin [Aspir-Low] 81 mg PO DAILY 11/07/14 Multivitamin [Daily Vitamin] 1 each PO DAILY tablet 11/07/14 Atorvastatin Ca [Lipitor] 10 mg PO HS 12/07/16 Levothyroxine [Synthroid -] 25 mcg PO DAILY 12/07/16 metFORMIN HCL [Metformin HCl] 2 tab PO ASDIR 12/07/16 Atorvastatin Ca [Lipitor] 10 mg PO HS tablet 07/06/18 Lisinopril [Prinivil] 10 mg PO DAILY tablet 07/06/18 Pantoprazole Sodium [Protonix -] 40 mg PO DAILY tablet.ec 07/06/18 metFORMIN HCL [Glucophage -] 500 mg PO BID@0700,1630 tablet 07/06/18 This patient is new to me today: Yes Date on this admission: 07/06/18 Emergency Visit: Yes ED Registration Date: 07/03/18 Care time: The patient presented to the Emergency Department on the above date and was hospitalized for further evaluation of their emergent condition. Critical Care patient: No - Discharge Referral Referred to [facility] Med P.C.: Yes Physician Referral: Russell Piper MD (Int Med)
[2018-07-06] MEDS ORDERED: metFORMIN HCL 500 MG TABLET (FP) PO SCH (16:30)
== END 2018-07-06 15:35 | disposition home or self-care (01) | DRG 389 ==
LOC: FER 14:44 → FM/S 17:54
PROVIDERS: ADMIT Internal Medicine; ATTEND Registered Nurse Emergency
DX: K56.609 Unspecified intestinal obstruction, unspecified as to partial versus complete obstruction (principal); N39.0 Urinary tract infection, site not specified; I10 Essential (primary) hypertension; E11.9 Type 2 diabetes mellitus without complications; E78.5 Hyperlipidemia, unspecified; Z79.84 Long term (current) use of oral hypoglycemic drugs; E03.9 Hypothyroidism, unspecified; Z87.891 Personal history of nicotine dependence; K57.30 Diverticulosis of large intestine without perforation or abscess without bleeding; K76.0 Fatty (change of) liver, not elsewhere classified; E83.42 Hypomagnesemia
CPT/HCPCS: 36415; 71045-TC-FY; 74019-TC-FY; 74177-TC; 80053; 81003; 81015; 82962; 83690; 83735; 84100; 84443; 85025; 85610; 85730; 86850; 86900; 86901; 87086; 93005; 99285-25; J0131; J7030

== ENCOUNTER 2018-07-08 16:54 | Emergency (ER) | payer OTHER ==
[2018-07-08] MEDS ORDERED: LIDOCAINE HCL 2% (20ML MULTI-DOSE VIAL) NR ONE (17:01)
[2018-07-08 17:14] VITALS: BP 152/85; PULSE 93; TEMP 97.9; BMI 29.0
--- NOTE | 2018-07-08 17:25 | PDOC ---
History of Present Illness - General Chief Complaint: Bite Stated Complaint: DOG BITE Time Seen by Provider: 07/08/18 16:56 History Source: Patient Exam Limitations: No Limitations - History of Present Illness Initial Comments: 88 yo F presents s/p dogbite. She states she was bitten by her nephew's 2 year old dog. The dog is fully vaccinated. This occurred just ROUSTABOUT. She was bleeding at the time, stopped it with direct pressure. Her last tetanus shot was 2 years ago. Denies any redness, but there is some swelling of the wound. No numbness, no weakness. Past History - Past Medical History Allergies/Adverse Reactions: Allergies Allergy/AdvReac Type Severity Reaction Status Date / Time Penicillins Allergy Intermediate rash Verified 07/03/18 14:45 poison [place] extract Allergy Intermediate Rash Verified 07/03/18 14:45 [Poison [place] Extract] oxycodone Allergy Verified 07/03/18 16:14 Bee stings Allergy Severe Swelling Uncoded 07/03/18 14:45 TAE Allergy Mild Swelling Uncoded 07/03/18 14:45 Home Medications: Ambulatory Orders Aspirin [Aspir-Low] 81 mg PO DAILY 11/07/14 Multivitamin [Daily Vitamin] 1 each PO DAILY tablet 11/07/14 Atorvastatin Ca [Lipitor] 10 mg PO HS 12/07/16 Levothyroxine [Synthroid -] 25 mcg PO DAILY 12/07/16 Pantoprazole Sodium [Protonix -] 40 mg PO DAILY tablet.ec 07/06/18 metFORMIN HCL [Glucophage -] 500 mg PO BID@0700,1630 tablet 07/06/18 Doxycycline Hyclate [Vibramycin -] 100 mg PO BID #14 cap 07/08/18 Anemia: No Asthma: No Cancer: No Cardiac Disorders: No CVA: No COPD: No CHF: No Dementia: No Diabetes: Yes (DX 1989) GI Disorders: No Disorders: No HTN: Yes (DX 2003) Hypercholesterolemia: Yes (DX 2003) Liver Disease: No Seizures: No Thyroid Disease: Yes (HYPOTHYROIDISM) - Surgical History Abdominal Surgery: No Appendectomy: No Cardiac Surgery: No Cholecystectomy: No Lung Surgery: No Neurologic Surgery: No Orthopedic Surgery: Yes (EPIDURAL STERIOD INJECTION L4-L5) - Immunization History TDAP Vaccination: Yes (2015) - Suicide/Smoking/Psychosocial Hx Smoking History: Former smoker Have you smoked in the past 12 months: No If you are a former smoker, when did you quit?: 1993 Information on smoking cessation initiated: No Hx Alcohol Use: No Drug/Substance Use Hx: No Substance Use Type: None Hx Substance Use Treatment: No Review of Systems - Review of Systems Able to Perform ROS?: Yes Comments:: GENERAL/CONSTITUTIONAL: No fever or chills. No weakness. HEAD, EYES, EARS, NOSE AND THROAT: No change in vision. No ear pain or discharge. No sore throat. CARDIOVASCULAR: No chest pain or shortness of breath. RESPIRATORY: No cough, wheezing, or hemoptysis. GASTROINTESTINAL: No nausea, vomiting, diarrhea or constipation. GENITOURINARY: No dysuria, frequency, or change in urination. MUSCULOSKELETAL: No joint or muscle swelling or pain. No neck or back pain. SKIN: +Lacerations to R index finger x2. No active bleeding. NEUROLOGIC: No headache, vertigo, loss of consciousness, or change in strength/ sensation. ENDOCRINE: No increased thirst. No abnormal weight change. HEMATOLOGIC/LYMPHATIC: No anemia, easy bleeding, or history of blood clots. ALLERGIC/IMMUNOLOGIC: No hives or skin allergy. *Physical Exam - Vital Signs Last Vital Signs Temp Pulse Resp BP Pulse Ox 97.9 F 93 H 16 152/85 99 07/08/18 16:55 07/08/18 16:55 07/08/18 16:55 07/08/18 16:55 07/08/18 16:55 - Physical Exam Comments: GENERAL: Awake, alert, and fully oriented, in no acute distress HEAD: No signs of trauma EYES: PERRLA, EOMI, sclera anicteric, conjunctiva clear EXTREMITIES: R index finger with lacerations x2- irregular, into subcutaneous fat. One laceration to the volar surface and one to the dorsal surface. Each approximately 1.5 cm in length. No active bleeding. +Localized swelling. Remainder of extremities with normal range of motion, no edema. No clubbing or cyanosis. No cords, erythema. NEUROLOGICAL: Cranial nerves II through XII grossly intact. Normal speech, normal gait SKIN: Warm, Dry, normal turgor, no rashes or lesions noted. Moderate Sedation - Procedure Monitoring Vital Signs: Procedure Monitoring Vital Signs Temperature 97.9 F 07/08/18 16:55 Pulse Rate 93 H 07/08/18 16:55 Respiratory Rate 16 07/08/18 16:55 Blood Pressure 152/85 07/08/18 16:55 O2 Sat by Pulse Oximetry (%) 99 07/08/18 16:55 Procedures - Laceration/Wound Repair Right Finger 2nd digit Wound Length: to 2.5 cm Wound Explored: no foreign body present Wound's Depth, Shape: superficial (into subcutaneous fat) Irrigated w/ Saline: Yes Anesthesia: 1% Lidocaine Amount of Anesthetic (ccs): 3 Wound Repaired With: Sutures Suture Size/Type: 5:0, nylon Number of Sutures: 4 Sterile Dressing Applied: Yes Progress: 07/08/18 17:29 As wound was irrigated, the wound to the palmar side of the finger began to bleed consistent with a small arteriole. Sutures were placed with hemostasis. Two sutures were placed in each wound for approximation, as there was exposed fat and one was over a joint. Patient tolerated well. Medical Decision Making - Medical Decision Making Opted to close the wound as there was exposure of subcutaneous fat and muscle tissue to the wound on the volar surface. Tendon function intact, however. The wound on the dorsal surface of the finger was overlying the PIP joint, and was relatively deep, would be at risk for healing as it would keep opening with movement. The wounds were copiously irrigated, then two sutures placed to each wound. +Hemostasis. Patient tolerated well. *DC/Admit/Observation/Transfer Diagnosis at time of Disposition: Laceration Dog bite Qualifiers: Encounter type: initial encounter Qualified Code(s): W54.0XXA - Bitten by dog, initial encounter - Discharge Dispostion Disposition: HOME Condition at time of disposition: Stable Decision to Admit order: No - Prescriptions Prescriptions: Doxycycline Hyclate [Vibramycin -] 100 mg PO BID #14 cap - Referrals Referrals: Russell Piper MD [Primary Care Provider] - - Patient Instructions Printed Discharge Instructions: DI for Laceration Repair, DI for Laceration Repair -- Finger, DI for Animal Bites Additional Instructions: KEEP THE WOUND DRY FOR 48 HOURS. AFTER THAT YOU CAN REMOVE THE BANDAGE. IT IS OK TO GET IT WET AFTER 48 HOURS, BUT DO NOT APPLY ANY LOTIONS, CREAMS, OR SOAPS. NO PEROXIDE. KEEP THE SPLINT IN PLACE AFTER THE INITIAL BANDAGE IS REMOVED, TO PREVENT YOU FROM MOVING YOUR HAND. TAKE DOXYCYCLINE PRESCRIBED FOR THE NEXT WEEK. IF YOU DEVELOP SEVERE PAIN, REDNESS, SWELLING, OR FEVER, RETURN TO THE ER IMMEDIATELY. RETURN BETWEEN JULY 17- TO HAVE THE STITCHES REMOVED. - Post Discharge Activity
[2018-07-08] MEDS ORDERED: DOXYCYCLINE HYCLATE 100 MG CAPSULE PO ONE ×2 (17:26→17:33)
== END 2018-07-08 17:37 | disposition home or self-care (01) ==
LOC: FER 16:54
PROC: 0HQFXZZ Repair Right Hand Skin, External Approach (ICD-10-PCS; principal; 2018-07-08)
DX: S61.250A Open bite of right index finger without damage to nail, initial encounter (principal); W54.0XXA Bitten by dog, initial encounter; Y93.89 Activity, other specified; Y92.89 Other specified places as the place of occurrence of the external cause; Z87.891 Personal history of nicotine dependence; E03.9 Hypothyroidism, unspecified; E11.9 Type 2 diabetes mellitus without complications; I10 Essential (primary) hypertension; E78.00 Pure hypercholesterolemia, unspecified
CPT/HCPCS: 12001; 99282-25

== ENCOUNTER 2018-07-18 09:31 | Emergency (ER) | payer OTHER ==
[2018-07-18 09:39] VITALS: BP 154/74; PULSE 90; TEMP 98.3; BMI 23.6
--- NOTE | 2018-07-18 09:45 | PDOC ---
Attending Attestation - Resident Resident Name: FerdinandSai - ED Attending Attestation I have performed the following: I have examined & evaluated the patient, The case was reviewed & discussed with the resident, I agree w/resident's findings & plan, Exceptions are as noted - HPI HPI: 88 yo F presents for suture removal. Sutures were placed s/p dog bite on 07/08 by this literary writer. She has taken abx as prescribed. Denies any redness, fever, drainage. - Physicial Exam PE: GENERAL: Awake, alert, and fully oriented, in no acute distress HEAD: No signs of trauma EXTREMITIES: R index finger with 4 sutures intact, no erythema, no drainage. NEUROLOGICAL: Cranial nerves II through XII grossly intact. Normal speech, normal gait SKIN: Warm, Dry, normal turgor, no rashes or lesions noted. - Medical Decision Making Pt presents for suture removal. Removed without incident. Steristrips placed. Stable for DC home.
--- NOTE | 2018-07-18 09:58 | PDOC ---
History of Present Illness - General Chief Complaint: Suture/Staple Removal(Here) Stated Complaint: SUTURE REMOVAL Time Seen by Provider: 07/18/18 09:36 History Source: Patient Exam Limitations: No Limitations - History of Present Illness Initial Comments: 07/18/18 10:07 88 yo female presents to ED for suture removal. Pt was bitten by nephews dog and received 4 stitches on 07/08/2018, 2 to the volar surface of the right index finger and 2 to the dorsal surface without complications. Pt given prescription for 7 days of doxycycline which was taken as prescribed and did return to have sutures removed within the recommended time period. Pt did keep the finger splint on over the last 10 days and kept the wound dry. Denies opening of the wound, severe pain, redness, swelling or fevers over the last 10 days. Past History - Past Medical History Allergies/Adverse Reactions: Allergies Allergy/AdvReac Type Severity Reaction Status Date / Time Penicillins Allergy Intermediate rash Verified 07/18/18 09:40 poison [place] extract Allergy Intermediate Rash Verified 07/18/18 09:40 [Poison [place] Extract] oxycodone Allergy Verified 07/18/18 09:40 Bee stings Allergy Severe Swelling Uncoded 07/18/18 09:40 TAE Allergy Mild Swelling Uncoded 07/18/18 09:40 Home Medications: Ambulatory Orders Aspirin [Aspir-Low] 81 mg PO DAILY 11/07/14 Multivitamin [Daily Vitamin] 1 each PO DAILY tablet 11/07/14 Atorvastatin Ca [Lipitor] 10 mg PO HS 12/07/16 Levothyroxine [Synthroid -] 25 mcg PO DAILY 12/07/16 Pantoprazole Sodium [Protonix -] 40 mg PO DAILY tablet.ec 07/06/18 metFORMIN HCL [Glucophage -] 500 mg PO BID@0700,1630 tablet 07/06/18 Doxycycline Hyclate [Vibramycin -] 100 mg PO BID #14 cap 07/08/18 Anemia: No Asthma: No Cancer: No Cardiac Disorders: No CVA: No COPD: No CHF: No Dementia: No Diabetes: Yes (DX 1989) GI Disorders: No Disorders: No HTN: Yes (DX 2003) Hypercholesterolemia: Yes (DX 2003) Liver Disease: No Seizures: No Thyroid Disease: Yes (HYPOTHYROIDISM) - Surgical History Abdominal Surgery: No Appendectomy: No Cardiac Surgery: No Cholecystectomy: No Lung Surgery: No Neurologic Surgery: No Orthopedic Surgery: Yes (EPIDURAL STERIOD INJECTION L4-L5) - Immunization History TDAP Vaccination: Yes (2016) Immunization Up to Date: Yes - Suicide/Smoking/Psychosocial Hx Smoking History: Never smoked Have you smoked in the past 12 months: No If you are a former smoker, when did you quit?: 1993 Information on smoking cessation initiated: No Hx Alcohol Use: No Drug/Substance Use Hx: No Substance Use Type: None Hx Substance Use Treatment: No Review of Systems - Review of Systems Constitutional: No: Chills, Fever Integumentary: Yes: Lesions (well healed) Neurological: No: Numbness, Paresthesia, Weakness *Physical Exam - Vital Signs Last Vital Signs Temp Pulse Resp BP Pulse Ox 98.3 F 90 20 154/74 100 07/18/18 09:32 18 09:32 12 09:32 07/18/18 09:32 07/18/18 09:32 - Physical Exam General Appearance: Yes: Nourished, Appropriately Dressed. No: Apparent Distress HEENT: positive: EOMI Comments:: 07/18/18 10:17 equal radial pulses bilaterally cap refill equal in both index fingers Extremity: positive: Normal Capillary Refill, Other (well healed finger lac to the dorsal and volar surface of right index finger with 2 sutures in each) Integumentary: positive: Normal Color, Dry, Warm, Other (patient able to bend index finger without lac opening. Sensation and strength equal when compared bilaterally ) Neurologic: positive: Fully Oriented, Alert, Normal Mood/Affect, Normal Response , Motor Strength 5/5. negative: Numbness, Sensory Deficit Moderate Sedation - Procedure Monitoring Vital Signs: Procedure Monitoring Vital Signs Temperature 98.3 F 07/18/18 09:32 Pulse Rate 90 07/18/18 09:32 Respiratory Rate 20 07/18/18 09:32 Blood Pressure 154/74 07/18/18 09:32 O2 Sat by Pulse Oximetry (%) 100 07/18/18 09:32 Medical Decision Making - Medical Decision Making 07/18/18 11:12 88 yo presents for suture removal. 4 sutures total to right index finger. Pt took antibiotics as prescribed and presents within the correct window to have sutures removed. Denies swelling, drainage, redness or fevers Vitals WNL 4 sutures removed without complications. Tolerated well. Due to laceration location over PIP joint, steri strips applied. Given strict return precautions for signs of infection or reopening of wound *DC/Admit/Observation/Transfer Diagnosis at time of Disposition: Visit for suture removal - Discharge Dispostion Disposition: HOME Condition at time of disposition: Good Decision to Admit order: No - Referrals - Patient Instructions Printed Discharge Instructions: DI for Suture Removal Additional Instructions: Please make appointment with your Family Doctor within the next 24 -48 hours and after the steri strips fall off. The steri strips placed on your finger will likely fall off within the next 3-5 days. Try not to bend the finger excessively or get them wet. Once the steri strips fall off, please use vitamin E or gwendolyn butter cream to help promote healing. Return to the Emergency Room for new or concerning symptoms including but not limited to: fevers, swelling/drainage/pain warmth or redness around the wound. Thank you - Post Discharge Activity
== END 2018-07-18 10:17 | disposition home or self-care (01) ==
LOC: FER 09:31
DX: Z48.02 Encounter for removal of sutures (principal)
CPT/HCPCS: 99281-25

== ENCOUNTER 2019-01-18 23:38 | Inpatient (IN) | payer OTHER ==
[2019-01-18 23:45] VITALS: BMI 27.4
[2019-01-19] MEDS ORDERED: morphine CARPU-JECT 4 MG/1 ML DISP.SYRIN IVPUSH ONE (00:24)
--- NOTE | 2019-01-19 00:28 | PDOC ---
Documentation entered by Debbie Funk SCRIBE, acting as scribe for Edwin Sharma MD. Edwin Sharma MD: This documentation has been prepared by the Blessing rodríguez Sammi, SCRIBE, under my direction and personally reviewed by me in its entirety. I confirm that the documentation accurately reflects all work, treatment, procedures, and medical decision making performed by me. History of Present Illness - General Chief Complaint: Pain, Acute Stated Complaint: ABD PAIN History Source: Patient Exam Limitations: No Limitations - History of Present Illness Initial Comments: 01/18/19 23:44 The patient is an 88 year old female who presents to the emergency department for evaluation of 3-4 hours of diffuse abdominal pain, nausea, and several days of constipation. She notes small bowel movements last night and this morning and reports discomfort from not being able to pass gas. The patient has a history of bowel obstruction 4 in the past always resolved with bowel rest and NG tube. Patient denies any vomiting PAST MEDICAL HISTORY: As per history of present illness PAST SURGICAL HISTORY: He denies any abdominal history of surgery FAMILY HISTORY: no pertinent history SOCIAL HISTORY: Pt lives with family and is retired MEDICATIONS: reviewed ALLERGIES: As per nursing notes Adult ROS General: No fevers or chills, no weakness, no weight loss HEENT: No change in vision. No sore throat,. No ear pain CardioVascular: No chest pain or shortness of breath Respiratory:No cough, or wheezing. Gastrointestinal: (+)abdominal pain (+)constipation (+) nausea. No vomiting, diarrhea, No rectal bleeding Genitourinary: No dysuria, hematuria, or frequency Musculoskeletal: No joint or muscle pain or swelling Neurologic: No headache, vertigo, dizziness or loss of consciousness Psychiatric: nor depression (Skin: No rashes or easy bruising Endocrine: no increased thirst or abnormal weight change Allergic: no skin or latex allergy All other systems reviewed and normal Adult Exam: General: Well-nourished well-developed individual, no acute distress HEENT: Throat: Normal, tonsils normal, no erythema or exudate Neck: Supple, no meningeal signs, no lymphadenopathy Eyes::Pupils equal reactive and round, extraocular motion intact Chest: Nontender to palpation Cardiac: S1-S2 normal, regular rate and rhythm, no murmurs rubs or gallops Respiratory: Lungs clear to auscultation bilateral Abdomen: Soft, nondistended, normal bowel sounds, moderately tender to palpation diffusely with a few high-pitched bowel sounds Extremities: Warm, dry, no cyanosis, clubbing, or edema Skin: No rashes Neuro: Alert and oriented x3, nonfocal exam, grossly intact, normal gait Psych: Normal mood and affect Chest and plan: This is a 8-year-old female who comes in complaining of abdominal pain and no BM 2 days. Patient said similar symptoms in the past when she had a small bowel obstruction Workup initiated for small bowel obstructions including CBC, comp, EKG, chest x- ray, CAT scan abdomen and pelvis to rule out small bowel obstruction. 01/19/19 00:20 01/19/19 04:02 Past History - Past Medical History Allergies/Adverse Reactions: Allergies Allergy/AdvReac Type Severity Reaction Status Date / Time Penicillins Allergy Intermediate rash Verified 07/18/18 09:40 poison [place] extract Allergy Intermediate Rash Verified 07/18/18 09:40 [Poison [place] Extract] oxycodone Allergy Verified 07/18/18 09:40 Bee stings Allergy Severe Swelling Uncoded 07/18/18 09:40 TAE Allergy Mild Swelling Uncoded 07/18/18 09:40 Home Medications: Ambulatory Orders Aspirin [Aspir-Low] 81 mg PO DAILY 11/07/14 Multivitamin [Daily Vitamin] 1 each PO DAILY tablet 11/07/14 Atorvastatin Ca [Lipitor] 10 mg PO HS 12/07/16 Levothyroxine [Synthroid -] 25 mcg PO DAILY 12/07/16 Pantoprazole Sodium [Protonix -] 40 mg PO DAILY tablet.ec 07/06/18 metFORMIN HCL [Glucophage -] 500 mg PO BID@0700,1630 tablet 07/06/18 Doxycycline Hyclate [Vibramycin -] 100 mg PO BID #14 cap 07/08/18 Anemia: No Asthma: No Cancer: No Cardiac Disorders: No CVA: No COPD: No CHF: No Dementia: No Diabetes: Yes (DX 1989) GI Disorders: No Disorders: No HTN: Yes (DX 2003) Hypercholesterolemia: Yes (DX 2003) Liver Disease: No Seizures: No Thyroid Disease: Yes (HYPOTHYROIDISM) - Surgical History Abdominal Surgery: No Appendectomy: No Cardiac Surgery: No Cholecystectomy: No Lung Surgery: No Neurologic Surgery: No Orthopedic Surgery: Yes (EPIDURAL STERIOD INJECTION L4-L5) - Immunization History TDAP Vaccination: Yes (2015) Immunization Up to Date: Yes - Suicide/Smoking/Psychosocial Hx Smoking History: Never smoked Have you smoked in the past 12 months: No If you are a former smoker, when did you quit?: 1993 Hx Alcohol Use: No Drug/Substance Use Hx: No Substance Use Type: None Hx Substance Use Treatment: No *Physical Exam - Vital Signs Last Vital Signs Temp Pulse Resp BP Pulse Ox 98.4 F 107 H 15 156/80 99 01/18/19 23:43 01/18/19 23:43 01/18/19 23:43 01/18/19 23:43 01/18/19 23:43 ED Treatment Course - LABORATORY CBC & Chemistry Diagram: 01/19/19 00:35 01/19/19 00:35 - RADIOLOGY Radiology Studies Ordered: Category Date Time Status ABDOMEN & PELVIS CT WITH CONTR [CT] Stat CT Scan 01/19/19 00:17 Ordered CHEST X-RAY PORTABLE* [RAD] Stat Radiology 01/19/19 00:17 Ordered *DC/Admit/Observation/Transfer Diagnosis at time of Disposition: Small bowel obstruction - Discharge Dispostion Condition at time of disposition: Fair Decision to Admit order: Yes - Referrals Referrals: Russell Piper MD [Primary Care Provider] - - Patient Instructions - Post Discharge Activity
[2019-01-19] MEDS ORDERED: SODIUM CHLORIDE 1,000 ML IV SCH (00:30)
[2019-01-19] MEDS ORDERED: morphine SULFATE 4 MG/ML VIAL ONE ×2 (00:37→03:48)
[2019-01-19 01:18] LABS: BASO % 0.5 % (0-2.0); EOS % 0.8 % (0-4.5); HEMOGLOBIN 12.5 GM/dL (10.7-15.3); LYMPH % 13.3 % (8-40); MCH 27.2 pg (25.7-33.7); MCHC 29.8 g/dl (32.0-36.0); MEAN CELL VOLUME 91.3 fl (80-96); MEAN PLT VOLUME 9.2 fl (7.5-11.1); MONO % 5.8 % (3.8-10.2); NEUT % 79.6 % (42.8-82.8); PLATELET COUNT 369 K/MM3 (134-434); RDW 19.9 % (11.6-15.6); WHITE BLOOD COUNT 10.3 K/mm3 (4.0-10.0)
[2019-01-19 01:50] LABS: ALBUMIN 4.2 g/dl (3.4-5.0); ALK PHOS 52 U/L (45-117); ANION GAP 9 MMOL/L (8-16); BILIRUBIN,TOTAL 0.4 mg/dL (0.2-1); BLOOD UREA NITROGEN 21.9 mg/dL (7-18); CALCIUM 9.9 mg/dL (8.5-10.1); CHLORIDE 106 mmol/L (98-107); CO2 24 mmol/L (21-32); CREATININE 1.2 mg/dL (0.55-1.3); GLUCOSE,RANDOM 159 mg/dL (74-106); POTASSIUM 4.5 mmol/L (3.5-5.1); SGOT/AST 37 U/L (15-37); SGPT/ALT 23 U/L (13-61); SODIUM 139 mmol/L (136-145)
[2019-01-19] MEDS ORDERED: ONDANSETRON 4 MG/2 ML VIAL ONE (03:48)
[2019-01-19] MEDS ORDERED: morphine CARPU-JECT 2 MG/1 ML DISP.SYRIN IVPUSH ONE (03:54)
[2019-01-19] MEDS ORDERED: ONDANSETRON 4 MG/2 ML VIAL IVPB ONE (03:54)
[2019-01-19] MEDS: DEXTROSE 5%-0.45% SALINE 1,000 ML IV SCH (07:56)
--- NOTE | 2019-01-19 09:04 | HP ---
Admitting History and Physical - Primary Care Physician PCP: Russell Piper - Admission Chief Complaint: abdominal pain, nausea/vomiting History of Present Illness: The patient is an 88 year old female who presents to the emergency department for evaluation of 3-4 hours of diffuse abdominal pain, nausea, and several days of constipation. She notes small bowel movements last night and this morning and reports discomfort from not being able to pass gas. The patient has a history of bowel obstruction 4 in the past resolved with bowel rest and NG tube. Patient had episode of emesis in ED and overnight History Source: Patient Limitations to Obtaining History: No Limitations - Past Medical History Cardiovascular: Yes: HTN, Hyperlipdemia Gastrointestinal: Yes: Constipation, Other (SMO x 4) Endocrine: Yes: Diabetes Mellitus, Hypothyroidism - Past Surgical History Past Surgical History: Yes: Hysterectomy (Left shoulder surgery) - Smoking History Smoking history: Never smoked Have you smoked in the past 12 months: No Aproximately how many cigarettes per day: 0 If you are a former smoker, when did you quit?: 1993 - Alcohol/Substance Use Hx Alcohol Use: No - Social History Usual Living Arrangement: Yes: With Significant Other (lived in multi family house with relatives) ADL: Independent Occupation: retired History of Recent Travel: No Home Medications - Allergies Allergies/Adverse Reactions: Allergies Allergy/AdvReac Type Severity Reaction Status Date / Time Penicillins Allergy Intermediate rash Verified 07/18/18 09:40 poison a[place] extract Allergy Intermediate Rash Verified 07/18/18 09:40 [Poison [place] Extract] oxycodone Allergy Verified 07/18/18 09:40 Bee stings Allergy Severe Swelling Uncoded 07/18/18 09:40 TAE Allergy Mild Swelling Uncoded 07/18/18 09:40 - Home Medications Home Medications: Ambulatory Orders Aspirin [Aspir-Low] 81 mg PO DAILY 11/07/14 Multivitamin [Daily Vitamin] 1 each PO DAILY tablet 11/07/14 Atorvastatin Ca [Lipitor] 10 mg PO HS 12/07/16 Levothyroxine [Synthroid -] 25 mcg PO DAILY 12/07/16 Pantoprazole Sodium [Protonix -] 40 mg PO DAILY tablet.ec 07/06/18 metFORMIN HCL [Glucophage -] 500 mg PO BID@0700,1630 tablet 07/06/18 Doxycycline Hyclate [Vibramycin -] 100 mg PO BID #14 cap 07/08/18 Family Disease History - Family Disease History Family History: Unremarkable Review of Systems - Review of Systems Constitutional: reports: No Symptoms Eyes: reports: No Symptoms HENT: reports: No Symptoms Neck: reports: No Symptoms Cardiovascular: reports: No Symptoms Respiratory: reports: No Symptoms Gastrointestinal: reports: Abdominal Pain, Bloating, Constipation, Nausea, Vomiting Genitourinary: reports: No Symptoms Breasts: reports: No Symptoms Reported Musculoskeletal: reports: No Symptoms Integumentary: reports: No Symptoms Neurological: reports: No Symptoms Endocrine: reports: No Symptoms Hematology/Lymphatic: reports: No Symptoms Psychiatric: reports: No Symptoms (03/18 abd pain) Physical Examination Vital Signs: Vital Signs Temperature 98.4 F 01/18/19 23:43 Pulse Rate 81 01/19/19 04:03 Respiratory Rate 15 01/19/19 04:26 Blood Pressure 139/75 01/19/19 04:03 O2 Sat by Pulse Oximetry (%) 98 01/19/19 04:26 Constitutional: Yes: Well Nourished, No Distress, Anxious Eyes: Yes: WNL, Conjunctiva Clear, EOM Intact HENT: Yes: WNL, Atraumatic, Normocephalic Neck: Yes: WNL, Supple, Trachea Midline Cardiovascular: Yes: WNL, Regular Rate and Rhythm, Bradycardia Respiratory: Yes: WNL, Regular, CTA Bilaterally Gastrointestinal: Yes: Distention, Hypoactive Bowel Sounds, Tenderness (diffuse) , Other (NGT to left nares) ...Rectal Exam: Yes: Deferred Renal/: Yes: WNL Breast(s): Yes: WNL Musculoskeletal: Yes: WNL Extremities: Yes: WNL Edema: No Peripheral Pulses WNL: No Integumentary: Yes: WNL Neurological: Yes: WNL, Alert, Oriented ...Motor Strength: WNL Psychiatric: Yes: WNL, Alert, Oriented Labs: CBC, BMP 01/19/19 00:35 01/19/19 00:35 Imaging - Results Chest X-ray: Image Reviewed (no effusion or infiltartes) Cat Scan: Report Reviewed (ABD CT 06/26 1. Findings consistent with moderate grade small bowel obstruction at the mid ileal level. The site of obstruction appears to be within the left lower quadrant anteriorly. 2. Cholelithiasis. Please see above discussion.) Problem List - Problems (1) Small bowel obstruction Assessment/Plan: Maintain NPO NGT to JOANNE Waters (Dr Montelongo) to see patient AXR repeated this am to asses NGT placement and tube repositioned IVF until taking PO Code(s): K56.609 - UNSP INTESTNL OBST, UNSP TO PARTIAL VERSUS COMPLETE OBST (2) HLD (hyperlipidemia) Assessment/Plan: hold statin until taking PO Code(s): E78.5 - HYPERLIPIDEMIA, UNSPECIFIED Qualifiers: Hyperlipidemia type: pure hypercholesterolemia Qualified Code(s): E78.00 - Pure hypercholesterolemia, unspecified; E78.0 - Pure hypercholesterolemia (3) HTN (hypertension) Assessment/Plan: patient normotensive presently hold Aspirin until taking PO Code(s): I10 - ESSENTIAL (PRIMARY) HYPERTENSION Qualifiers: Hypertension type: essential hypertension Qualified Code(s): I10 - Essential (primary) hypertension (4) Hypothyroid Assessment/Plan: continue synthroid, converted to IV dose Code(s): E03.9 - HYPOTHYROIDISM, UNSPECIFIED (5) Prophylactic measure Assessment/Plan: FEN IVF while NPO encourage ambulation No chemical DVT prohpalyxis at this time Dispo maintain as in patient discharge planning full code Code(s): Z29.9 - ENCOUNTER FOR PROPHYLACTIC MEASURES, UNSPECIFIED (6) Diabetes Assessment/Plan: BGM with Novolog coverage hold metformin until taking PO Code(s): E11.9 - TYPE 2 DIABETES MELLITUS WITHOUT COMPLICATIONS Visit type - Emergency Visit Emergency Visit: Yes ED Registration Date: 01/19/19 Care time: The patient presented to the Emergency Department on the above date and was hospitalized for further evaluation of their emergent condition. - New Patient This patient is new to me today: Yes Date on this admission: 01/19/19 - Critical Care Critical Care patient: No
[2019-01-19] MEDS ORDERED: ONDANSETRON 4 MG/2 ML VIAL IVPUSH PRN (09:38)
[2019-01-19] MEDS ORDERED: PT OWN MED DRAWER 7, Y5N ONE ×2 (10:23→11:10)
[2019-01-19] MEDS: METOCLOPRAMIDE HCL INJECTION 10 MG/2 ML VIAL IVPUSH SCH ×3 (10:34→22:00)
[2019-01-19] MEDS: PANTOPRAZOLE SODIUM 40 MG VIAL IVPUSH SCH (10:34)
[2019-01-19] MEDS: INSULIN SLIDING SCALE (NOVOLOG) 1 VIAL SQ SCH ×3 (10:35→23:00)
[2019-01-19] MEDS: ACETAMINOPHEN 1000 MG/100 ML VIAL (NON FORMULARY) IVPB PRN ×2 (10:35→15:00)
[2019-01-19] MEDS: LEVOTHYROXINE SODIUM 100 MCG VIAL IVPUSH SCH (11:44)
--- NOTE | 2019-01-19 11:48 | EKG ---
Test Reason : Blood Pressure : / mmHG Vent. Rate : 080 BPM Atrial Rate : 080 BPM P-R Int : 144 ms QRS Dur : 072 ms QT Int : 374 ms P-R-T Axes : 055 -07 028 degrees QTc Int : 431 ms SINUS RHYTHM WITH PREMATURE ATRIAL COMPLEXES OTHERWISE NORMAL ECG WHEN COMPARED WITH ECG OF 03-JUL-2018 18:29, PREMATURE ATRIAL COMPLEXES ARE NOW PRESENT Confirmed by ALEKSANDR RAMIREZ, STEFAN ([id number]) on 01/19/2019 11:47:52 AM Referred By: MD AYALA Confirmed By:STEFAN BRANDON MD
[2019-01-19 12:17] LABS: CALCIUM 9.1 mg/dl (8.5-10); CREATININE 0.9 mg/dl (0.55-1.3); POTASSIUM 4.6 mmol/L (3.5-5.1)
[2019-01-19 12:40] LABS: EOS % 0.3 % (0-4.5); HEMATOCRIT 36.6 % (32.4-45.2); LYMPH % 10.7 % (8-40); MCH 28.2 pg (25.7-33.7); MCHC 32.9 g/dl (32.0-36.0); MEAN CELL VOLUME 85.9 fl (80-96); MEAN PLT VOLUME 9.2 fl (7.5-11.1); MONO % 8.3 % (3.8-10.2); NEUT % 80.7 % (42.8-82.8); PLATELET COUNT 418 K/MM3 (134-434); RBC 4.26 M/mm3 (3.60-5.2); RDW 13.8 % (11.6-15.6); WHITE BLOOD COUNT 9.8 K/mm3 (4.0-10.8)
--- NOTE | 2019-01-19 15:25 | CONSULT ---
Consult Consult Specialty:: General Surgery Referred by:: Jovita Schaefer Reason for Consultation:: recurrent SBO - History of Present Illness Chief Complaint: central band-like abd pain, N/V, decreased/small stools History of Present Illness: 88yo obese F with HTN, HLD, DM2, chronic back pain, h/o SBO x at least 3 in past 2 years - all resolved with NG/bowel rest - admitted last night through ER at [facility] with abdominal pain across middle of abdomen, beginning just last night at 6pm, associated with decreased and small stools for 2d prior, also with N/V starting as she got to ER. Denies F/C. After NGT, pt did feel a bit better, and states her abdomen is a bit smaller than it had been. She had noted some bloating over 2 days as well. In ER, she had CT showing gallstones, SBO with transition in mid-distal ileum, fecalized distal SB loop, no free air, small pelvic fluid, concentric wall thickening of a mid-ileal bowel loop and some fat replacement in terminal ileum suggestive of possible previous enteritis. Surgery was asked to assess. She is seen and examined sitting up in chair, NGT in place with ~100ml light/clear/westfall output in canister (not the first one). She denies any previous abdominal or pelvic surgeries and has no abdominal scars. Last SBO was 06/26, before that was 06/25 and 12/23. - History Source History Provided By: Patient, Medical Record Limitations to Obtaining History: No Limitations - Past Medical History Cardio/Vascular: Yes: HTN, Hyperlipdemia Gastrointestinal: Yes: Constipation, Other (SBO x 3-4) Reproductive: Yes: Postmenopausal Musculoskeletal: Yes: Chronic low back pain, Other (neck pain/shooting pains up into head) Endocrine: Yes: Diabetes Mellitus, Hypothyroidism Additional Medical History: obesity - Past Surgical History Additional Surgical History: spine surgery, lipomas off left shoulder and right thigh - Alcohol/Substance Use Hx Alcohol Use: Yes (social) History of Substance Use: reports: None - Smoking History Smoking history: Former smoker Have you smoked in the past 12 months: No If you are a former smoker, when did you quit?: 1992 - Social History ADL: Independent Occupation: retired History of Recent Travel: No Home Medications - Allergies Allergies/Adverse Reactions: Allergies Allergy/AdvReac Type Severity Reaction Status Date / Time Penicillins Allergy Intermediate rash Verified 07/18/18 09:40 poison [place] extract Allergy Intermediate Rash Verified 07/18/18 09:40 [Poison [place] Extract] oxycodone Allergy Verified 07/18/18 09:40 Bee stings Allergy Severe Swelling Uncoded 07/18/18 09:40 TAE Allergy Mild Swelling Uncoded 07/18/18 09:40 - Home Medications Home Medications: Ambulatory Orders Aspirin [Aspir-Low] 81 mg PO DAILY 11/07/14 Multivitamin [Daily Vitamin] 1 each PO DAILY tablet 11/07/14 Atorvastatin Ca [Lipitor] 10 mg PO HS 12/07/16 Levothyroxine [Synthroid -] 25 mcg PO DAILY 12/07/16 metFORMIN HCL [Glucophage -] 500 mg PO BID@0700,1630 tablet 07/06/18 Family Disease History - Family Disease History Family History: Unremarkable (noncontributory) Review of Systems - Review of Systems Constitutional: denies: Chills, Fever Eyes: denies: Blurred Vision, Recent Change in Vision HENT: denies: Difficult Swallowing, Throat Pain Neck: denies: Swollen Glands, Tenderness Cardiovascular: denies: Chest Pain, Palpitations Respiratory: denies: Cough, SOB Gastrointestinal: reports: Abdominal Pain (with hpi), Bloating (with hpi), Constipation (small, less stool last 2d), Nausea (with hpi), Vomiting (with hpi) . denies: Diarrhea Genitourinary: denies: Burning, Dysuria Musculoskeletal: reports: Back Pain (chronic). denies: Muscle Pain Integumentary: denies: Change in Color, Rash Neurological: denies: Dizziness, Headache Physical Exam Vital Signs: Vital Signs Temperature 98.1 F 01/19/19 13:39 Pulse Rate 88 01/19/19 13:39 Respiratory Rate 19 01/19/19 13:39 Blood Pressure 134/55 L 01/19/19 13:39 O2 Sat by Pulse Oximetry (%) 99 01/19/19 13:39 Constitutional: Yes: No Distress, Calm, Obese Eyes: Yes: Conjunctiva Clear, EOM Intact HENT: Yes: Atraumatic, Normocephalic, Other (NGT in place, light westfall/clear output) Neck: Yes: Supple, Trachea Midline Cardiovascular: Yes: Regular Rate and Rhythm, Murmur (systolic) Respiratory: Yes: Regular, CTA Bilaterally Gastrointestinal: Yes: Soft, Abdomen, Obese, Tenderness (mild left mid-lower abdomen, no dewey/guard), Other (no scars). No: Tenderness, Rebound ...Rectal Exam: Yes: Deferred Renal/: No: CVA Tenderness - Left, CVA Tenderness - Right Musculoskeletal: Yes: Back Pain (chronic). No: Joint Stiffness Extremities: No: Cool, Cyanosis Edema: Yes Edema: LLE: 1+, RLE: 1+ Peripheral Pulses WNL: Yes Integumentary: No: Jaundice, Rash Neurological: Yes: Alert, Oriented Psychiatric: Yes: Alert, Oriented Labs: CBC, BMP 01/19/19 09:10 01/19/19 09:10 CMP Sodium 138 mmol/L (136-145) 01/19/19 09:10 Potassium 4.6 mmol/L (3.5-5.1) 01/19/19 09:10 Chloride 104 mmol/L (98-107) 01/19/19 09:10 Carbon Dioxide 22 mmol/L (21-32) 01/19/19 09:10 Anion Gap 12 MMOL/L (8-16) 01/19/19 09:10 BUN 16.0 mg/dl (7-18) 01/19/19 09:10 Creatinine 0.9 mg/dl (0.55-1.3) 01/19/19 09:10 Est GFR (CKD-EPI)AfAm 67.10 01/19/19 09:10 Est GFR (CKD-EPI)NonAf 57.90 01/19/19 09:10 POC Glucometer 136 UNITS (80-120) 01/19/19 10:28 Random Glucose 129 mg/dl (74-106) H 01/19/19 09:10 Lactic Acid 1.3 mmol/L (0.4-2.0) 01/19/19 09:12 Calcium 9.1 mg/dl (8.5-10) 01/19/19 09:10 Total Bilirubin 0.4 mg/dL (0.2-1) 01/19/19 00:35 AST 37 U/L (15-37) 01/19/19 00:35 ALT 23 U/L (13-61) 01/19/19 00:35 Alkaline Phosphatase 52 U/L (45-117) 01/19/19 00:35 Creatine Kinase 235 U/L (26-192) H 01/19/19 00:35 Creatine Kinase Index 0.9 % (0.0-5.0) 01/19/19 00:35 CK-MB (CK-2) 2.3 ng/mL (0.5-3.6) 01/19/19 00:35 Troponin I < 0.02 ng/ml (0.00-0.05) 01/19/19 00:35 Total Protein 8.0 g/dl (6.4-8.2) 01/19/19 00:35 Albumin 4.2 g/dl (3.4-5.0) 01/19/19 00:35 Urine Test Results Urine Color Yellow 01/19/19 11:45 Urine Appearance Clear 01/19/19 11:45 Urine pH 6.0 (4.5-8) 01/19/19 11:45 Urine Protein Negative (NEGATIVE) 01/19/19 11:45 Urine Glucose (UA) Negative (NEGATIVE) 01/19/19 11:45 Urine Ketones Negative (NEGATIVE) 01/19/19 11:45 Urine Blood Trace-intact (NEGATIVE) 01/19/19 11:45 Urine Nitrite Negative (NEGATIVE) 01/19/19 11:45 Urine Bilirubin Negative (NEGATIVE) 01/19/19 11:45 Ur Leukocyte Esterase Negative (NEGATIVE) 01/19/19 11:45 Urine RBC 0-3 /hpf (0-4) 01/19/19 11:45 Urine WBC 0-3 (NEGATIVE) 01/19/19 11:45 Imaging - Results Chest X-ray: Image Reviewed (images reviewed) Cat Scan: Report Reviewed, Image Reviewed (SBO with fecalized loop of ileum distally, no free air, small pelvic fluid, no obvious masses, + gallstones) Problem List - Problems (1) Small bowel obstruction Assessment/Plan: admitted to medicine continue NPO/NGT/IVF limit narcotics, pain meds prn (IV tylenol first line recommended) trend labs keep lytes normal serial exams and AXR slightly less distended and feeling a bit better per pt still with some nausea in am, if less nausea and NG with low output, will give oral contrast via NGT and follow up with AXR about 3 hrs after finished if contrast does not reach colon within 24 hrs, would repeat CT and may have to consider operative intervention discussed with patient that SBO in virgin abdomen usually requires surgery since she has resolved so quickly in past, will give conservative treatment a trial last colonoscopy in 2014 consider GI referral as outpatient for repeat - she does not know what they found then will follow up seen and discussed with Avani Conner NP Code(s): K56.609 - UNSP INTESTNL OBST, UNSP TO PARTIAL VERSUS COMPLETE OBST (2) Generalized abdominal pain Code(s): R10.84 - GENERALIZED ABDOMINAL PAIN (3) Nausea & vomiting Code(s): R11.2 - NAUSEA WITH VOMITING, UNSPECIFIED Qualifiers: Vomiting type: cyclical vomiting Vomiting Intractability: non-intractable Qualified Code(s): G43.A0 - Cyclical vomiting, not intractable (4) Diabetes Assessment/Plan: FS with SSI while NPO Code(s): E11.9 - TYPE 2 DIABETES MELLITUS WITHOUT COMPLICATIONS Qualifiers: Diabetes mellitus type: type 2 Diabetes mellitus mcc insulin use: without terminal computer operator use Diabetes mellitus complication status: without complication Qualified Code(s): E11.9 - Type 2 diabetes mellitus without complications (5) HLD (hyperlipidemia) Code(s): E78.5 - HYPERLIPIDEMIA, UNSPECIFIED Qualifiers: Hyperlipidemia type: pure hypercholesterolemia Qualified Code(s): E78.00 - Pure hypercholesterolemia, unspecified; E78.0 - Pure hypercholesterolemia (6) HTN (hypertension) Assessment/Plan: IV meds prn Code(s): I10 - ESSENTIAL (PRIMARY) HYPERTENSION Qualifiers: Hypertension type: essential hypertension Qualified Code(s): I10 - Essential (primary) hypertension (7) Hypothyroid Assessment/Plan: continue synthroid IV Code(s): E03.9 - HYPOTHYROIDISM, UNSPECIFIED Qualifiers: Hypothyroidism type: unspecified Qualified Code(s): E03.9 - Hypothyroidism , unspecified
[2019-01-20] MEDS: METOCLOPRAMIDE HCL INJECTION 10 MG/2 ML VIAL IVPUSH SCH (06:25)
[2019-01-20] MEDS: DEXTROSE 5%-0.45% SALINE 1,000 ML IV SCH (06:26)
[2019-01-20 08:01] LABS: BASO % 0.5 % (0-2.0); EOS % 1.5 % (0-4.5); HEMATOCRIT 37.1 % (32.4-45.2); HEMOGLOBIN 11.9 GM/dl (10.7-15.3); MCH 27.7 pg (25.7-33.7); MCHC 32.1 g/dl (32.0-36.0); MEAN CELL VOLUME 86.2 fl (80-96); MEAN PLT VOLUME 8.3 fl (7.5-11.1); MONO % 9.3 % (3.8-10.2); NEUT % 69.7 % (42.8-82.8); PLATELET COUNT 409 K/MM3 (134-434); RDW 13.7 % (11.6-15.6); WHITE BLOOD COUNT 6.4 K/mm3 (4.0-10.8)
[2019-01-20 08:07] LABS: ALBUMIN 3.3 g/dl (3.4-5.0); BILIRUBIN,TOTAL 0.7 mg/dl (0.2-1); CALCIUM 8.5 mg/dl (8.5-10); CREATININE 0.9 mg/dl (0.55-1.3); MAGNESIUM 1.5 mg/dL (1.8-2.4); TOT PROT 6.2 g/dl (6.4-8.2)
[2019-01-20] MEDS ORDERED: PT OWN MED DRAWER 7, Y5N ONE (09:15)
[2019-01-20] MEDS: LEVOTHYROXINE SODIUM 100 MCG VIAL IVPUSH SCH (09:23)
[2019-01-20] MEDS: PANTOPRAZOLE SODIUM 40 MG VIAL IVPUSH SCH (09:23)
[2019-01-20] MEDS: INSULIN SLIDING SCALE (NOVOLOG) 1 VIAL SQ SCH ×3 (09:23→22:01)
--- NOTE | 2019-01-20 09:59 | PN ---
Progress Note, Physician Chief Complaint: Feels improved only mild abd soreness passing flatus, last BM this am History of Present Illness: 88 yrs old F independent H/O SBO X4 present with abd pain and distention, NG tube was passed this am feels improved , passing flatus had a regular BM - Current Medication List Current Medications: Active Medications Acetaminophen (Ofirmev Injection -) 1,000 mg IVPB Q6H PRN PRN Reason: PAIN OR FEVER Last Admin: 01/19/19 15:00 Dose: 1,000 mg Dextrose/Sodium Chloride (D5-1/2ns -) 1,000 mls @ 60 mls/hr IV ASDIR [facility] Last Admin: 01/20/19 06:26 Dose: 60 mls/hr Insulin Aspart (Novolog Vial Sliding Scale -) 1 vial SQ ACHS [facility]; Protocol Last Admin: 01/20/19 09:23 Dose: Not Given Levothyroxine Sodium (Synthroid Injection -) 12.5 mcg IVPUSH DAILY [facility] Last Admin: 01/20/19 09:23 Dose: 12.5 mcg Ondansetron HCl (Zofran Injection) 4 mg IVPUSH Q6H PRN PRN Reason: NAUSEA AND/OR VOMITING Pantoprazole Sodium (Protonix Iv) 40 mg IVPUSH DAILY [facility] Last Admin: 01/20/19 09:23 Dose: 40 mg - Objective Vital Signs: Vital Signs Temperature 97.9 F 01/20/19 05:00 Pulse Rate 95 H 01/20/19 05:00 Respiratory Rate 18 01/20/19 08:28 Blood Pressure 123/51 L 01/20/19 05:00 O2 Sat by Pulse Oximetry (%) 99 01/20/19 08:28 elderly F not in distress, comfortable HEENT: Mm moist, NG tube at place NECK: No JVD No Bruit CHEST: CTA B/L CVS; S1S2 R no m/g/r ABD: Mild distention soft, mild tenderness no rebound or guarding. EXT: No yani afeet, pulses + SHIP MATE: AOX3 non fcal Labs: CBC, BMP 01/20/19 07:13 01/20/19 07:13 - ....Imaging X-ray: Report Reviewed (KUB : resolving SBO) Problem List - Problems (1) Small bowel obstruction Assessment/Plan: recurrent, improving on NG tube decompression, passing BM and flatus, evaluted by Surgery consult recommonded KUB with contrast will F/U recommendations. Code(s): K56.609 - UNSP INTESTNL OBST, UNSP TO PARTIAL VERSUS COMPLETE OBST (2) Diabetes Assessment/Plan: Hold Metformin cont correction dose insulin Code(s): E11.9 - TYPE 2 DIABETES MELLITUS WITHOUT COMPLICATIONS Qualifiers: Diabetes mellitus type: type 2 Diabetes mellitus half-way insulin use: without termite renewal inspector use Diabetes mellitus complication status: without complication Qualified Code(s): E11.9 - Type 2 diabetes mellitus without complications (3) HTN (hypertension) Assessment/Plan: Well control Lisinopril on Hold Code(s): I10 - ESSENTIAL (PRIMARY) HYPERTENSION Qualifiers: Hypertension type: essential hypertension Qualified Code(s): I10 - Essential (primary) hypertension (4) HLD (hyperlipidemia) Assessment/Plan: resume once tolertae PO Code(s): E78.5 - HYPERLIPIDEMIA, UNSPECIFIED Qualifiers: Hyperlipidemia type: pure hypercholesterolemia Qualified Code(s): E78.00 - Pure hypercholesterolemia, unspecified; E78.0 - Pure hypercholesterolemia
[2019-01-20] MEDS ORDERED: MAGNESIUM SULF 50% (8.12 MEQ/2 ML-1 GM VIAL) IVPB ONE (13:32)
--- NOTE | 2019-01-20 13:38 | PN ---
Progress Note, Physician History of Present Illness: Pt with SBO; NPO with NGT and IVF. She is seen and examined in bed, NGT in place with ~100ml almost clear output since last night. She reports feeling a bit better, had a small BM this morning. Feels like passing gas. No nausea. AXR taken without contrast - just starting oral contrast via NGT now. Pt has been OOB to chair, ambulated yesterday evening. Still notes some tenderness. - Current Medication List Current Medications: Active Medications Acetaminophen (Ofirmev Injection -) 1,000 mg IVPB Q6H PRN PRN Reason: PAIN OR FEVER Last Admin: 01/19/19 15:00 Dose: 1,000 mg Dextrose/Sodium Chloride (D5-1/2ns -) 1,000 mls @ 60 mls/hr IV ASDIR [facility] Last Admin: 01/20/19 06:26 Dose: 60 mls/hr Insulin Aspart (Novolog Vial Sliding Scale -) 1 vial SQ ACHS [facility]; Protocol Last Admin: 01/20/19 09:23 Dose: Not Given Levothyroxine Sodium (Synthroid Injection -) 12.5 mcg IVPUSH DAILY [facility] Last Admin: 01/20/19 09:23 Dose: 12.5 mcg Magnesium Sulfate (Magnesium Sulfate) 2 gm IVPB ONCE ONE Stop: 01/20/19 13:33 Ondansetron HCl (Zofran Injection) 4 mg IVPUSH Q6H PRN PRN Reason: NAUSEA AND/OR VOMITING Pantoprazole Sodium (Protonix Iv) 40 mg IVPUSH DAILY [facility] Last Admin: 01/20/19 09:23 Dose: 40 mg - Objective Vital Signs: Vital Signs Temperature 97.9 F 01/20/19 05:00 Pulse Rate 95 H 01/20/19 05:00 Respiratory Rate 18 01/20/19 08:28 Blood Pressure 123/51 L 01/20/19 05:00 O2 Sat by Pulse Oximetry (%) 99 01/20/19 08:28 Constitutional: Yes: No Distress, Calm, Obese Eyes: Yes: Conjunctiva Clear, EOM Intact HENT: Yes: Atraumatic, Normocephalic, Other (NGT in place) Gastrointestinal: Yes: Soft, Abdomen, Obese, Tenderness (across mid-abdomen and left side, LUQ/LLQ - no dewey/guard) Extremities: No: Cool, Cyanosis Integumentary: No: Jaundice, Rash Neurological: Yes: Alert, Oriented Labs: CBC, BMP 01/20/19 07:13 01/20/19 07:13 CMP Sodium 141 mmol/L (136-145) 01/20/19 07:13 Potassium 4.0 mmol/L (3.5-5.1) 01/20/19 07:13 Chloride 108 mmol/L (98-107) H 01/20/19 07:13 Carbon Dioxide 26 mmol/L (21-32) 01/20/19 07:13 Anion Gap 7 MMOL/L (8-16) L 01/20/19 07:13 BUN 12.0 mg/dl (7-18) 01/20/19 07:13 Creatinine 0.9 mg/dl (0.55-1.3) 01/20/19 07:13 Est GFR (CKD-EPI)AfAm 67.10 01/20/19 07:13 Est GFR (CKD-EPI)NonAf 57.90 01/20/19 07:13 POC Glucometer 92 UNITS (80-120) 01/19/19 22:36 Random Glucose 123 mg/dl (74-106) H 01/20/19 07:13 Lactic Acid 1.3 mmol/L (0.4-2.0) 01/19/19 09:12 Calcium 8.5 mg/dl (8.5-10) 01/20/19 07:13 Magnesium 1.5 mg/dL (1.8-2.4) L 01/20/19 07:13 Total Bilirubin 0.7 mg/dl (0.2-1) 01/20/19 07:13 AST 24 U/L (15-37) 01/20/19 07:13 ALT 15 U/L (13-61) 01/20/19 07:13 Alkaline Phosphatase 43 U/L (45-117) L 01/20/19 07:13 Creatine Kinase 235 U/L (26-192) H 01/19/19 00:35 Creatine Kinase Index 0.9 % (0.0-5.0) 01/19/19 00:35 CK-MB (CK-2) 2.3 ng/mL (0.5-3.6) 01/19/19 00:35 Troponin I < 0.02 ng/ml (0.00-0.05) 01/19/19 00:35 Total Protein 6.2 g/dl (6.4-8.2) L 01/20/19 07:13 Albumin 3.3 g/dl (3.4-5.0) L 01/20/19 07:13 Magnesium low - ....Imaging X-ray: Report Reviewed, Image Reviewed (AXR from midday reviewed - gas present in colon and few SB loops, no markedly dilated loops, no contrast (not yet given )) Problem List - Problems (1) Small bowel obstruction Assessment/Plan: continue NPO/IVF limit narcotics, pain meds prn (IV tylenol first line recommended) trend labs keep lytes normal - replete mag feeling a bit better, had BM discussed with patient that SBO in virgin abdomen usually requires surgery since she has resolved so quickly in past, giving conservative treatment a trial giving oral contrast via NGT, keep clamped unless N/V follow with AXR about 3 hrs after finished if contrast does not reach colon within 24 hrs, would repeat CT and may have to consider operative intervention last colonoscopy in 2014 consider GI referral as outpatient for repeat - she does not know what they found then Code(s): K56.609 - UNSP INTESTNL OBST, UNSP TO PARTIAL VERSUS COMPLETE OBST (2) Generalized abdominal pain Code(s): R10.84 - GENERALIZED ABDOMINAL PAIN (3) Nausea & vomiting Code(s): R11.2 - NAUSEA WITH VOMITING, UNSPECIFIED Qualifiers: Vomiting type: cyclical vomiting Vomiting Intractability: non-intractable Qualified Code(s): G43.A0 - Cyclical vomiting, not intractable (4) Diabetes Assessment/Plan: FS with SSI while NPO Code(s): E11.9 - TYPE 2 DIABETES MELLITUS WITHOUT COMPLICATIONS Qualifiers: Diabetes mellitus type: type 2 Diabetes mellitus fci insulin use: without fci use Diabetes mellitus complication status: without complication Qualified Code(s): E11.9 - Type 2 diabetes mellitus without complications (5) HLD (hyperlipidemia) Code(s): E78.5 - HYPERLIPIDEMIA, UNSPECIFIED Qualifiers: Hyperlipidemia type: pure hypercholesterolemia Qualified Code(s): E78.00 - Pure hypercholesterolemia, unspecified; E78.0 - Pure hypercholesterolemia (6) HTN (hypertension) Assessment/Plan: IV meds prn Code(s): I10 - ESSENTIAL (PRIMARY) HYPERTENSION Qualifiers: Hypertension type: essential hypertension Qualified Code(s): I10 - Essential (primary) hypertension (7) Hypothyroid Assessment/Plan: continue synthroid IV Code(s): E03.9 - HYPOTHYROIDISM, UNSPECIFIED Qualifiers: Hypothyroidism type: unspecified Qualified Code(s): E03.9 - Hypothyroidism , unspecified
[2019-01-20] MEDS ORDERED: MAGNESIUM SULFATE IN WATER 2 GM/50 ML IVPB IVPB ONE (14:00)
[2019-01-20] MEDS ORDERED: MAGNESIUM SULF 50% (8.12 MEQ/2 ML-1 GM VIAL) ONE (19:00)
[2019-01-21] MEDS: INSULIN SLIDING SCALE (NOVOLOG) 1 VIAL SQ SCH ×4 (06:29→21:51)
[2019-01-21] MEDS: DEXTROSE 5%-0.45% SALINE 1,000 ML IV SCH (06:29)
[2019-01-21 08:27] LABS: BASO % 0.4 % (0-2.0); EOS % 1.4 % (0-4.5); HEMATOCRIT 36.8 % (32.4-45.2); HEMOGLOBIN 11.9 GM/dl (10.7-15.3); LYMPH % 22.4 % (8-40); MCH 27.9 pg (25.7-33.7); MCHC 32.2 g/dl (32.0-36.0); MEAN CELL VOLUME 86.7 fl (80-96); MEAN PLT VOLUME 8.4 fl (7.5-11.1); MONO % 6.8 % (3.8-10.2); PLATELET COUNT 412 K/MM3 (134-434); RBC 4.25 M/mm3 (3.60-5.2); RDW 13.7 % (11.6-15.6); WHITE BLOOD COUNT 6.8 K/mm3 (4.0-10.8)
[2019-01-21 08:41] LABS: ALBUMIN 3.4 g/dl (3.4-5.0); BILIRUBIN,TOTAL 0.6 mg/dl (0.2-1); CALCIUM 8.8 mg/dl (8.5-10); CREATININE 0.8 mg/dl (0.55-1.3); POTASSIUM 4.2 mmol/L (3.5-5.1); TOT PROT 6.5 g/dl (6.4-8.2)
--- NOTE | 2019-01-21 10:22 | PN ---
Physical Exam: SUBJECTIVE: Patient seen and examined oob to chair. and daughter present. Started on clears this morning, no nausea or vomiting. Passing gas. Last BM was yesterday. Abdomen feels "sore" but denies pain. OBJECTIVE: Vital Signs Period Temp Pulse Resp BP Sys/Contreras Pulse Ox Last 24 Hr 98.0 F-99.0 F 80-87 16-18 128-147/49-65 98-99 GENERAL: The patient is awake, alert, and fully oriented, in no acute distress. LUNGS: Breath sounds equal, clear to auscultation bilaterally, no wheezes, no crackles, no accessory muscle use. HEART: Regular rate and rhythm, S1, S2 ABDOMEN: Soft, diffusely tender EXTREMITIES: 2+ pulses, warm, well-perfused, no edema. NEUROLOGICAL: Cranial nerves II through XII grossly intact. Normal speech, gait not observed. Laboratory Results - last 24 hr 01/20/19 01/20/19 01/20/19 13:20 18:57 21:53 WBC RBC Hgb Hct MCV MCH MCHC RDW Plt Count MPV Absolute Neuts (auto) Neutrophils % Lymphocytes % Monocytes % Eosinophils % Basophils % Sodium Potassium Chloride Carbon Dioxide Anion Gap BUN Creatinine Est GFR (CKD-EPI)AfAm Est GFR (CKD-EPI)NonAf POC Glucometer 82 90 95 Random Glucose Calcium Magnesium Total Bilirubin AST ALT Alkaline Phosphatase Total Protein Albumin 01/21/19 01/21/19 01/21/19 06:10 06:50 06:50 WBC 6.8 RBC 4.25 Hgb 11.9 Hct 36.8 MCV 86.7 MCH 27.9 MCHC 32.2 RDW 13.7 Plt Count 412 MPV 8.4 Absolute Neuts (auto) 4.7 Neutrophils % 69.0 Lymphocytes % 22.4 Monocytes % 6.8 Eosinophils % 1.4 Basophils % 0.4 Sodium 141 Potassium 4.2 Chloride 105 Carbon Dioxide 24 Anion Gap 12 BUN 7.0 Creatinine 0.8 Est GFR (CKD-EPI)AfAm 77.37 Est GFR (CKD-EPI)NonAf 66.76 POC Glucometer 107 Random Glucose 107 H Calcium 8.8 Magnesium 2.0 Total Bilirubin 0.6 AST 24 ALT 15 Alkaline Phosphatase 46 Total Protein 6.5 Albumin 3.4 Active Medications Generic Name Dose Route Start Last Admin Trade Name Freq PRN Reason Stop Dose Admin Acetaminophen 1,000 mg 01/19/19 09:34 01/19/19 15:00 Ofirmev Injection - IVPB 1,000 mg Q6H PRN Administration PAIN OR FEVER Dextrose/Sodium Chloride 1,000 mls @ 60 mls/hr 01/19/19 06:00 01/21/19 06:29 D5-1/2ns - IV 60 mls/hr ASDIR KAR Administration Insulin Aspart 1 vial 01/19/19 11:00 01/21/19 06:29 Novolog Vial Sliding Scale - SQ Not Given ACHS KAR Protocol Levothyroxine Sodium 12.5 mcg 01/19/19 10:00 01/20/19 09:23 Synthroid Injection - IVPUSH 12.5 mcg DAILY K[facility] Administration Lisinopril 10 mg 01/21/19 10:00 Prinivil PO DAILY KAR Ondansetron HCl 4 mg 01/19/19 09:38 Zofran Injection IVPUSH Q6H PRN NAUSEA AND/OR VOMITING Pantoprazole Sodium 40 mg 01/19/19 10:00 01/20/19 09:23 Protonix Iv IVPUSH 40 mg DAILY KAR Administration PCP: Dr. Piper ASSESSMENT/PLAN: 88 year-old female with a PMH significant for HTN, HLD, hypothyroidism, diverticulitis, and recurrent SBOs. Admitted for SBO. 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 Bowen and told to make an appointment in two months for a colonoscopy; patient did not follow up --re-emphasized need for GI followup as outpatient, last colonoscopy 2014 Hypertension --BP stable --continue lisinopril Hyperlipidemia --restart home Lipitor Hypothyroidism --switch to PO levothyroxine FEN Fluids: PO intake adequate Electrolytes: replete as indicated Nutrition: clears DVT prophylaxis: subq lovenox Physical therapy Dispo: continues to require inpatient care. Full code. Patient's home is under rehab construction, it is not habitable, no running water, no working toilets. Patient and her were planning to drive to [place] to stay with their son for several weeks when patient became ill. On discharge, patient wants to drive to [place], 8-hour trip. Visit type - Emergency Visit Emergency Visit: Yes ED Registration Date: 01/19/19 Care time: The patient presented to the Emergency Department on the above date and was hospitalized for further evaluation of their emergent condition. - New Patient This patient is new to me today: Yes Date on this admission: 01/21/19 - Critical Care Critical Care patient: No
[2019-01-21] MEDS: LISINOPRIL 10 MG TABLET (FP) PO SCH (10:29)
[2019-01-21] MEDS: LEVOTHYROXINE SODIUM 100 MCG VIAL IVPUSH SCH (10:29)
[2019-01-21] MEDS: PANTOPRAZOLE SODIUM 40 MG VIAL IVPUSH SCH (10:29)
[2019-01-21] MEDS: ENOXAPARIN NA (PORCINE) 40 MG/0.4 ML DISP.SYRIN SQ SCH (12:24)
--- NOTE | 2019-01-21 14:50 | PN ---
Progress Note, Physician History of Present Illness: Pt with SBO, resolving by contrast visualized on AXR in colon yesterday. NGT was removed last night, and she is tolerating clears today. She is seen and examined sitting up in chair, with visitors present. She reports feeling ok, still somewhat tender in central abdomen, but had multiple loose BMs yesterday. Passing gas, no nausea. Ambulating periodically. Would like to wash up or shower. - Current Medication List Current Medications: Active Medications Acetaminophen (Ofirmev Injection -) 1,000 mg IVPB Q6H PRN PRN Reason: PAIN OR FEVER Last Admin: 01/19/19 15:00 Dose: 1,000 mg Aspirin (Ecotrin -) 81 mg PO DAILY [facility] Atorvastatin Calcium (Lipitor -) 10 mg PO HS [facility] Enoxaparin Sodium (Lovenox -) 40 mg SQ DAILY [facility] Last Admin: 01/21/19 12:24 Dose: 40 mg Insulin Aspart (Novolog Vial Sliding Scale -) 1 vial SQ [facility]; Protocol Last Admin: 01/21/19 11:42 Dose: Not Given Levothyroxine Sodium (Synthroid -) 25 mcg PO DAILY [facility] Lisinopril (Prinivil) 10 mg PO DAILY [facility] Last Admin: 01/21/19 10:29 Dose: 10 mg Ondansetron HCl (Zofran Injection) 4 mg IVPUSH Q6H PRN PRN Reason: NAUSEA AND/OR VOMITING Pantoprazole Sodium (Protonix -) 40 mg PO DAILY [facility] - Objective Vital Signs: Vital Signs Temperature 97.7 F 01/21/19 14:06 Pulse Rate 94 H 01/21/19 14:06 Respiratory Rate 16 01/21/19 14:06 Blood Pressure 130/60 01/21/19 14:06 O2 Sat by Pulse Oximetry (%) 99 01/21/19 14:06 Constitutional: Yes: No Distress, Calm, Obese Eyes: Yes: Conjunctiva Clear, EOM Intact HENT: Yes: Atraumatic, Normocephalic Gastrointestinal: Yes: Soft, Abdomen, Obese, Distention (some, with a little tympany in upper abd), Tenderness (periumbilical, mild, no dewey/guard; not really in upper quadrants or subxiphoid area or in bilateral lower quadrants). No: Tenderness, Epigastrium Extremities: No: Cool, Cyanosis Integumentary: No: Jaundice, Rash Neurological: Yes: Alert, Oriented Labs: CBC, BMP 01/21/19 06:50 01/21/19 06:50 CMP Sodium 141 mmol/L (136-145) 01/21/19 06:50 Potassium 4.2 mmol/L (3.5-5.1) 01/21/19 06:50 Chloride 105 mmol/L (98-107) 01/21/19 06:50 Carbon Dioxide 24 mmol/L (21-32) 01/21/19 06:50 Anion Gap 12 MMOL/L (8-16) 01/21/19 06:50 BUN 7.0 mg/dl (7-18) 01/21/19 06:50 Creatinine 0.8 mg/dl (0.55-1.3) 01/21/19 06:50 Est GFR (CKD-EPI)AfAm 77.37 01/21/19 06:50 Est GFR (CKD-EPI)NonAf 66.76 01/21/19 06:50 POC Glucometer 141 UNITS (80-120) 01/21/19 11:23 Random Glucose 107 mg/dl (74-106) H 01/21/19 06:50 Lactic Acid 1.3 mmol/L (0.4-2.0) 01/19/19 09:12 Calcium 8.8 mg/dl (8.5-10) 01/21/19 06:50 Magnesium 2.0 mg/dL (1.8-2.4) 01/21/19 06:50 Total Bilirubin 0.6 mg/dl (0.2-1) 01/21/19 06:50 AST 24 U/L (15-37) 01/21/19 06:50 ALT 15 U/L (13-61) 01/21/19 06:50 Alkaline Phosphatase 46 U/L (45-117) 01/21/19 06:50 Creatine Kinase 235 U/L (26-192) H 01/19/19 00:35 Creatine Kinase Index 0.9 % (0.0-5.0) 01/19/19 00:35 CK-MB (CK-2) 2.3 ng/mL (0.5-3.6) 01/19/19 00:35 Troponin I < 0.02 ng/ml (0.00-0.05) 01/19/19 00:35 Total Protein 6.5 g/dl (6.4-8.2) 01/21/19 06:50 Albumin 3.4 g/dl (3.4-5.0) 01/21/19 06:50 Microbiology 01/19/19 11:45 Urine Culture - Final Urine - Urine Clean Catch Contaminated: Please Repeat 01/19/19 09:12 Blood Culture - Preliminary Blood - Peripheral Venous NO GROWTH OBTAINED AFTER 48 HOURS, INCUBATION TO CONTINUE FOR 3 DAYS. 01/19/19 09:12 Blood Culture - Preliminary Blood - Peripheral Venous NO GROWTH OBTAINED AFTER 48 HOURS, INCUBATION TO CONTINUE FOR 3 DAYS. - ....Imaging X-ray: Report Reviewed, Image Reviewed (images from last night reviewed - contrast in colon, also possibly still in some distal SB loops, air in both SB and LB, no markedly distended/dilated loops) Problem List - Problems (1) Small bowel obstruction Assessment/Plan: + bowel function, tolerating clears mild tenderness across periumbilical area, midabdomen only will advance to full diabetic liquids if tolerates tonight, can advance to diabetic diet in am presuming no N/V and continued bowel function, could then d/c at discretion of primary team pt encouraged to f/u with GI/Dr. Bowen (her GI) after discharge she reports colonoscopy was "clear" but she did have diverticuli also f/u with PMD/Dr. Piper discussed with Eliecer Osborne NP Code(s): K56.609 - UNSP INTESTNL OBST, UNSP TO PARTIAL VERSUS COMPLETE OBST (2) Generalized abdominal pain Assessment/Plan: resolving Code(s): R10.84 - GENERALIZED ABDOMINAL PAIN (3) Nausea & vomiting Assessment/Plan: resolved Code(s): R11.2 - NAUSEA WITH VOMITING, UNSPECIFIED Qualifiers: Vomiting type: cyclical vomiting Vomiting Intractability: non-intractable Qualified Code(s): G43.A0 - Cyclical vomiting, not intractable (4) Diabetes Assessment/Plan: FS with SSI can resume home meds per primary team, when hollis diabetic diet Code(s): E11.9 - TYPE 2 DIABETES MELLITUS WITHOUT COMPLICATIONS Qualifiers: Diabetes mellitus type: type 2 Diabetes mellitus rodent exterminator insulin use: without rodent exterminator use Diabetes mellitus complication status: without complication Qualified Code(s): E11.9 - Type 2 diabetes mellitus without complications (5) HLD (hyperlipidemia) Code(s): E78.5 - HYPERLIPIDEMIA, UNSPECIFIED Qualifiers: Hyperlipidemia type: pure hypercholesterolemia Qualified Code(s): E78.00 - Pure hypercholesterolemia, unspecified; E78.0 - Pure hypercholesterolemia (6) HTN (hypertension) Assessment/Plan: resume home meds Code(s): I10 - ESSENTIAL (PRIMARY) HYPERTENSION Qualifiers: Hypertension type: essential hypertension Qualified Code(s): I10 - Essential (primary) hypertension (7) Hypothyroid Assessment/Plan: continue synthroid - can change back to po Code(s): E03.9 - HYPOTHYROIDISM, UNSPECIFIED Qualifiers: Hypothyroidism type: unspecified Qualified Code(s): E03.9 - Hypothyroidism , unspecified
[2019-01-21] MEDS: ATORVASTATIN CA 10 MG TABLET (FP) PO SCH (21:51)
[2019-01-22] MEDS: INSULIN SLIDING SCALE (NOVOLOG) 1 VIAL SQ SCH ×4 (06:40→21:06)
[2019-01-22] MEDS: ENOXAPARIN NA (PORCINE) 40 MG/0.4 ML DISP.SYRIN SQ SCH (09:02)
[2019-01-22] MEDS: LISINOPRIL 10 MG TABLET (FP) PO SCH (09:02)
[2019-01-22] MEDS: PANTOPRAZOLE 40 MG TABLET (FP) PO SCH (09:02)
[2019-01-22] MEDS: LEVOTHYROXINE NA 25 MCG TABLET (FP) PO SCH (09:02)
[2019-01-22] MEDS: ASPIRIN COATED 81 MG TABLET.EC PO SCH (09:02)
[2019-01-22 10:50] LABS: BASO % 0.4 % (0-2.0); EOS % 2.2 % (0-4.5); HEMATOCRIT 34.8 % (32.4-45.2); HEMOGLOBIN 11.3 GM/dL (10.7-15.3); LYMPH % 26.6 % (8-40); MCH 27.8 pg (25.7-33.7); MCHC 32.5 g/dl (32.0-36.0); MEAN CELL VOLUME 85.6 fl (80-96); MEAN PLT VOLUME 8.4 fl (7.5-11.1); MONO % 10.6 % (3.8-10.2); NEUT % 60.2 % (42.8-82.8); PLATELET COUNT 363 K/MM3 (134-434); RBC 4.07 M/mm3 (3.60-5.2); RDW 14.4 % (11.6-15.6); WHITE BLOOD COUNT 4.9 K/mm3 (4.0-10.0)
[2019-01-22 11:18] LABS: ALBUMIN 3.1 g/dl (3.4-5.0); BILIRUBIN,TOTAL 0.3 mg/dL (0.2-1); BLOOD UREA NITROGEN 6.2 mg/dL (7-18); CREATININE 0.8 mg/dL (0.55-1.3); MAGNESIUM 2.2 mg/dL (1.8-2.4); POTASSIUM 4.3 mmol/L (3.5-5.1); TOT PROT 6.1 g/dl (6.4-8.2)
--- NOTE | 2019-01-22 13:28 | PN ---
Physical Exam: SUBJECTIVE: Patient seen and examined oob to chair. Daughter and present. Tolerating full diabetic diet, no nausea, vomiting, no pain. Passing gas. OBJECTIVE: Vital Signs Period Temp Pulse Resp BP Sys/Contreras Pulse Ox Last 24 Hr 97.7 F-98.9 F 74-94 16-19 130-152/59-65 99-100 GENERAL: The patient is awake, alert, and fully oriented, in no acute distress. LUNGS: Breath sounds equal, clear to auscultation bilaterally, no wheezes, no crackles, no accessory muscle use. HEART: Regular rate and rhythm, S1, S2 ABDOMEN: Soft, diffusely tender EXTREMITIES: 2+ pulses, warm, well-perfused, no edema. NEUROLOGICAL: Cranial nerves II through XII grossly intact. Normal speech, gait not observed. Laboratory Results - last 24 hr 01/21/19 01/21/19 01/22/19 16:35 21:36 06:00 WBC 4.9 RBC 4.07 Hgb 11.3 Hct 34.8 D MCV 85.6 MCH 27.8 MCHC 32.5 RDW 14.4 D Plt Count 363 MPV 8.4 Absolute Neuts (auto) 2.9 Neutrophils % 60.2 D Lymphocytes % 26.6 D Monocytes % 10.6 H D Eosinophils % 2.2 D Basophils % 0.4 Nucleated RBC % 0 Sodium Potassium Chloride Carbon Dioxide Anion Gap BUN Creatinine Est GFR (CKD-EPI)AfAm Est GFR (CKD-EPI)NonAf POC Glucometer 77 92 Random Glucose Calcium Magnesium Total Bilirubin AST ALT Alkaline Phosphatase Total Protein Albumin 01/22/19 01/22/19 01/22/19 06:00 06:06 11:34 WBC RBC Hgb Hct MCV MCH MCHC RDW Plt Count MPV Absolute Neuts (auto) Neutrophils % Lymphocytes % Monocytes % Eosinophils % Basophils % Nucleated RBC % Sodium 141 Potassium 4.3 Chloride 107 Carbon Dioxide 27 Anion Gap 7 L BUN 6.2 L Creatinine 0.8 Est GFR (CKD-EPI)AfAm 77.37 Est GFR (CKD-EPI)NonAf 66.76 POC Glucometer 104 104 Random Glucose 106 Calcium 9.0 Magnesium 2.2 Total Bilirubin 0.3 AST 21 ALT 18 Alkaline Phosphatase 48 Total Protein 6.1 L Albumin 3.1 L Active Medications Generic Name Dose Route Start Last Admin Trade Name Freq PRN Reason Stop Dose Admin Acetaminophen 1,000 mg 01/19/19 09:34 01/19/19 15:00 Ofirmev Injection - IVPB 1,000 mg Q6H PRN Administration PAIN OR FEVER Aspirin 81 mg 01/22/19 10:00 01/22/19 09:02 Ecotrin - PO 81 mg DAILY KAR Administration Atorvastatin Calcium 10 mg 01/21/19 22:00 01/21/19 21:51 Lipitor - PO 10 mg HS KAR Administration Enoxaparin Sodium 40 mg 01/21/19 12:00 01/22/19 09:02 Lovenox - SQ 40 mg DAILY [facility] Administration Insulin Aspart 1 vial 01/19/19 11:00 01/22/19 11:40 Novolog Vial Sliding Scale - SQ Not Given ACHS [facility] Protocol Levothyroxine Sodium 25 mcg 01/22/19 10:00 01/22/19 09:02 Synthroid - PO 25 mcg DAILY KAR Administration Lisinopril 10 mg 01/21/19 10:00 01/22/19 09:02 Prinivil PO 10 mg DAILY KAR Administration Ondansetron HCl 4 mg 01/19/19 09:38 Zofran Injection IVPUSH Q6H PRN NAUSEA AND/OR VOMITING Pantoprazole Sodium 40 mg 01/22/19 10:00 01/22/19 09:02 Protonix - PO 40 mg DAILY KAR Administration ASSESSMENT/PLAN 88 year-old female with a PMH significant for HTN, HLD, hypothyroidism, diverticulitis, and recurrent SBOs. Admitted for SBO. SBO --01/19 CTAP: distal SBO, transition zone region of ileum --01/20 Xray abdomen: progression of contrast, partially resolving SBO --NGT is out, diet advanced, tolerating regular diabetic diet Recurrent SBOs --this is the fourth SBO for this patient with no abdominal surgical history --was seen and evaluated in 06/2018 (last hospitalization for SBO) by Dr. Bowen and told to make an appointment in two months for a colonoscopy; patient did not follow up --re-emphasized need for GI followup as outpatient, last colonoscopy 2014 Hypertension --BP stable --continue lisinopril Hyperlipidemia --continue Lipitor Hypothyroidism --continue levothyroxine FEN Fluids: PO intake adequate Electrolytes: replete as indicated Nutrition: diabetic diet DVT prophylaxis: subq lovenox Physical therapy Dispo: continues to require inpatient care. Full code. Patient will be staying at her daughter's house upon discharge. Visit type - Emergency Visit Emergency Visit: Yes ED Registration Date: 01/19/19 Care time: The patient presented to the Emergency Department on the above date and was hospitalized for further evaluation of their emergent condition. - New Patient This patient is new to me today: No - Critical Care Critical Care patient: No
[2019-01-22] MEDS: ATORVASTATIN CA 10 MG TABLET (FP) PO SCH (21:18)
--- NOTE | 2019-01-23 05:40 | DS ---
Physical Exam: SUBJECTIVE: Patient seen and examined oob. Ambulating in room. Feels well, tolerating regular food. No pain. OBJECTIVE: Vital Signs Period Temp Pulse Resp BP Sys/Contreras Pulse Ox Last 24 Hr 97.9 F-99.3 F 79-92 16-18 132-144/54-64 98-98 PHYSICAL EXAM GENERAL: The patient is awake, alert, and fully oriented, in no acute distress. LUNGS: Breath sounds equal, clear to auscultation bilaterally, no wheezes, no crackles, no accessory muscle use. HEART: Regular rate and rhythm, S1, S2 ABDOMEN: Soft, diffusely tender EXTREMITIES: 2+ pulses, warm, well-perfused, no edema. NEUROLOGICAL: Cranial nerves II through XII grossly intact. Normal speech, gait not observed. LABS Laboratory Results - last 24 hr 01/22/19 01/22/19 01/22/19 06:00 06:00 06:06 WBC 4.9 RBC 4.07 Hgb 11.3 Hct 34.8 D MCV 85.6 MCH 27.8 MCHC 32.5 RDW 14.4 D Plt Count 363 MPV 8.4 Absolute Neuts (auto) 2.9 Neutrophils % 60.2 D Lymphocytes % 26.6 D Monocytes % 10.6 H D Eosinophils % 2.2 D Basophils % 0.4 Nucleated RBC % 0 Sodium 141 Potassium 4.3 Chloride 107 Carbon Dioxide 27 Anion Gap 7 L BUN 6.2 L Creatinine 0.8 Est GFR (CKD-EPI)AfAm 77.37 Est GFR (CKD-EPI)NonAf 66.76 POC Glucometer 104 Random Glucose 106 Calcium 9.0 Magnesium 2.2 Total Bilirubin 0.3 AST 21 ALT 18 Alkaline Phosphatase 48 Total Protein 6.1 L Albumin 3.1 L 01/22/19 01/22/19 11:34 16:32 WBC RBC Hgb Hct MCV MCH MCHC RDW Plt Count MPV Absolute Neuts (auto) Neutrophils % Lymphocytes % Monocytes % Eosinophils % Basophils % Nucleated RBC % Sodium Potassium Chloride Carbon Dioxide Anion Gap BUN Creatinine Est GFR (CKD-EPI)AfAm Est GFR (CKD-EPI)NonAf POC Glucometer 104 118 Random Glucose Calcium Magnesium Total Bilirubin AST ALT Alkaline Phosphatase Total Protein Albumin Date of Admission:01/19/19 Date of Discharge: 01/23/19 Pre hospital course The patient is an 88 year old female who presented to the emergency department for evaluation of 3-4 hours of diffuse abdominal pain, nausea, and several days of constipation. She noted small bowel movements last night and this morning and reported discomfort from not being able to pass gas. The patient has a history of bowel obstruction 3 (12/2016, 06/2017, 06/2018) all resolved with bowel rest and NG tube. Hospital course 88 year-old female with a PMH significant for HTN, HLD, hypothyroidism, diverticulitis, and recurrent SBOs. Admitted for SBO. SBO --01/19 CTAP: distal SBO, transition zone region of ileum --01/20 Xray abdomen: progression of contrast, partially resolving SBO --NGT is out, diet advanced, tolerating regular diabetic diet Recurrent SBOs --this is the fourth SBO for this patient with no abdominal surgical history --was seen and evaluated in 06/2018 (last hospitalization for SBO) by Dr. Bowen and told to make an appointment in two months for a colonoscopy; patient did not follow up --re-emphasized need for GI followup as outpatient, last colonoscopy 2014 Hypertension --BP stable --continued lisinopril Hyperlipidemia --continued Lipitor Hypothyroidism --continued levothyroxine Minutes to complete discharge: 35 Discharge Summary Reason For Visit: SMALL BOWEL OBSTRUCTION. Current Active Problems Diabetes (Acute) Generalized abdominal pain (Acute) Prophylactic measure (Acute) Small bowel obstruction (Acute) Condition: Improved - Instructions Diet, Activity, Other Instructions: It is strongly recommended you call Dr. Bowen to make an appointment for a colonoscopy as soon as possible. Referrals: Mike Bowen MD [Staff Physician] - Disposition: HOME - Home Medications Comprehensive Discharge Medication List: Ambulatory Orders Aspirin [Aspir-Low] 81 mg PO DAILY 11/07/14 Multivitamin [Daily Vitamin] 1 each PO DAILY tablet 11/07/14 Atorvastatin Ca [Lipitor] 10 mg PO HS 12/07/16 Levothyroxine [Synthroid -] 25 mcg PO DAILY 12/07/16 metFORMIN HCL [Glucophage -] 500 mg PO BID@0700,1630 tablet 07/06/18 This patient is new to me today: No Emergency Visit: Yes ED Registration Date: 01/19/19 Care time: The patient presented to the Emergency Department on the above date and was hospitalized for further evaluation of their emergent condition. Critical Care patient: No - Discharge Referral Referred to [email or web address] Yes Physician Referral: Russell Piper MD (Int Med)
[2019-01-23] MEDS: INSULIN SLIDING SCALE (NOVOLOG) 1 VIAL SQ SCH (06:34)
[2019-01-23 06:45] VITALS: BP 147/67; PULSE 84; TEMP 98.3
[2019-01-23 07:52] LABS: BASO % 0.5 % (0-2.0); EOS % 1.5 % (0-4.5); HEMATOCRIT 35.2 % (32.4-45.2); HEMOGLOBIN 11.4 GM/dl (10.7-15.3); LYMPH % 25.3 % (8-40); MCH 27.7 pg (25.7-33.7); MCHC 32.5 g/dl (32.0-36.0); MEAN CELL VOLUME 85.3 fl (80-96); MEAN PLT VOLUME 8.3 fl (7.5-11.1); MONO % 10.2 % (3.8-10.2); NEUT % 62.5 % (42.8-82.8); PLATELET COUNT 379 K/MM3 (134-434); RBC 4.13 M/mm3 (3.60-5.2); RDW 13.3 % (11.6-15.6); WHITE BLOOD COUNT 5.4 K/mm3 (4.0-10.8)
[2019-01-23] MEDS: LISINOPRIL 10 MG TABLET (FP) PO SCH (09:00)
[2019-01-23] MEDS: ENOXAPARIN NA (PORCINE) 40 MG/0.4 ML DISP.SYRIN SQ SCH (09:00)
[2019-01-23] MEDS: ASPIRIN COATED 81 MG TABLET.EC PO SCH (09:00)
[2019-01-23] MEDS: LEVOTHYROXINE NA 25 MCG TABLET (FP) PO SCH (09:00)
[2019-01-23] MEDS: PANTOPRAZOLE 40 MG TABLET (FP) PO SCH (09:00)
--- NOTE | 2019-01-23 09:02 | PN ---
Progress Note, Physician History of Present Illness: Pt with resolved SBO, now tolerating diabetic diet starting yesterday. She is seen and examined sitting up in chair. She reports feeling better, having bowel movements, thin/long, soft. Feels like might have more diarrhea. Explained that oral contrast from Wednesday may take a few days to fully evacuate. - Current Medication List Current Medications: Active Medications Acetaminophen (Ofirmev Injection -) 1,000 mg IVPB Q6H PRN PRN Reason: PAIN OR FEVER Last Admin: 01/19/19 15:00 Dose: 1,000 mg Aspirin (Ecotrin -) 81 mg PO DAILY [facility] Last Admin: 01/22/19 09:02 Dose: 81 mg Atorvastatin Calcium (Lipitor -) 10 mg PO HS [facility] Last Admin: 01/22/19 21:18 Dose: 10 mg Enoxaparin Sodium (Lovenox -) 40 mg SQ DAILY [facility] Last Admin: 01/22/19 09:02 Dose: 40 mg Insulin Aspart (Novolog Vial Sliding Scale -) 1 vial SQ [facility]; Protocol Last Admin: 01/23/19 06:34 Dose: Not Given Levothyroxine Sodium (Synthroid -) 25 mcg PO DAILY [facility] Last Admin: 01/22/19 09:02 Dose: 25 mcg Lisinopril (Prinivil) 10 mg PO DAILY [facility] Last Admin: 01/22/19 09:02 Dose: 10 mg Ondansetron HCl (Zofran Injection) 4 mg IVPUSH Q6H PRN PRN Reason: NAUSEA AND/OR VOMITING Pantoprazole Sodium (Protonix -) 40 mg PO DAILY [facility] Last Admin: 01/22/19 09:02 Dose: 40 mg - Objective Vital Signs: Vital Signs Temperature 98.3 F 01/23/19 06:44 Pulse Rate 84 01/23/19 06:44 Respiratory Rate 18 01/23/19 06:44 Blood Pressure 147/67 01/23/19 06:44 O2 Sat by Pulse Oximetry (%) 98 01/23/19 06:44 Constitutional: Yes: No Distress, Calm, Obese Eyes: Yes: Conjunctiva Clear, EOM Intact HENT: Yes: Atraumatic, Normocephalic Gastrointestinal: Yes: Soft, Abdomen, Obese. No: Tenderness (minimal central), Tenderness, Epigastrium, Tenderness, Rebound Extremities: No: Cool, Cyanosis Integumentary: No: Jaundice, Rash Neurological: Yes: Alert, Oriented Labs: CBC, BMP 01/23/19 07:03 01/22/19 06:00 Problem List - Problems (1) Small bowel obstruction Assessment/Plan: + bowel function, tolerating diabetic diet d/c home with GI followup and PMD/Dr. Piper discussed with Eliecer Osborne NP Code(s): K56.609 - UNSP INTESTNL OBST, UNSP TO PARTIAL VERSUS COMPLETE OBST (2) Generalized abdominal pain Assessment/Plan: resolved Code(s): R10.84 - GENERALIZED ABDOMINAL PAIN (3) Diabetes Assessment/Plan: FS with SSI resume home meds Code(s): E11.9 - TYPE 2 DIABETES MELLITUS WITHOUT COMPLICATIONS Qualifiers: Diabetes mellitus type: type 2 Diabetes mellitus supervisor intermediates insulin use: without supervisor intermediates use Diabetes mellitus complication status: without complication Qualified Code(s): E11.9 - Type 2 diabetes mellitus without complications (4) HLD (hyperlipidemia) Code(s): E78.5 - HYPERLIPIDEMIA, UNSPECIFIED Qualifiers: Hyperlipidemia type: pure hypercholesterolemia Qualified Code(s): E78.00 - Pure hypercholesterolemia, unspecified; E78.0 - Pure hypercholesterolemia (5) HTN (hypertension) Assessment/Plan: resume home meds Code(s): I10 - ESSENTIAL (PRIMARY) HYPERTENSION Qualifiers: Hypertension type: essential hypertension Qualified Code(s): I10 - Essential (primary) hypertension (6) Hypothyroid Assessment/Plan: continue synthroid Code(s): E03.9 - HYPOTHYROIDISM, UNSPECIFIED Qualifiers: Hypothyroidism type: unspecified Qualified Code(s): E03.9 - Hypothyroidism , unspecified
== END 2019-01-23 09:10 | disposition home or self-care (01) | DRG 390 ==
LOC: FER 23:38 → FM/S 01-19 03:53 → UNDOADMIN 01-19 04:26
PROVIDERS: ADMIT Internal Medicine; ATTEND Nurse Practitioner Acute Care
PROC: 0D9670Z Drainage of Stomach with Drainage Device, Via Natural or Artificial Opening (ICD-10-PCS; principal; 2019-01-19)
PROC: 0DP6X0Z Removal of Drainage Device from Stomach, External Approach (ICD-10-PCS; 2019-01-20)
DX: K56.699 Other intestinal obstruction unspecified as to partial versus complete obstruction (principal); E11.9 Type 2 diabetes mellitus without complications; Z79.84 Long term (current) use of oral hypoglycemic drugs; E78.5 Hyperlipidemia, unspecified; I10 Essential (primary) hypertension; E03.9 Hypothyroidism, unspecified; E66.9 Obesity, unspecified; M54.9 Dorsalgia, unspecified; Z68.30 Body mass index [BMI] 30.0-30.9, adult; Z88.0 Allergy status to penicillin
CPT/HCPCS: 36415; 71045-TC-FY; 74019-TC-FY; 74177-TC; 80048; 80053; 81003; 81015; 82550; 82553; 82962; 83605; 83735; 84484; 85025; 87040; 87086; 93005; 99284-25; J0131; J7030

== ENCOUNTER 2020-04-07 13:14 | Inpatient (IN) | payer OTHER ==
--- NOTE | 2020-04-07 13:22 | PDOC ---
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 she has had diarrhea/loose BM yesterday. she admits to poor appetite, always told she should eat smaller meals due to her prior obstructions. she drank coffee and tea this morning; yesterday she tolerated sandwich and coffee. Denies fever, chills, chest pain, SOB, palpitation, dizziness, weakness, nausea or vomiting, bladder and bowel problems, focal weakness/paresthesias, leg swelling/pain, rash. No new changes in medications. No suspicious food intake Allergies: pcn, poison [place], oxycodone, fruits, bees. 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 No tobacco, ETOH or drug use. Meds: as documented in EMR Family history: noncontributory PMD: Dr Piper Review of systems Constitutional: no fevers or chills. No weakness HEENT: no headache or dizziness. No congestion. No visual/hearing disturbances. CVS: no cp or syncope. Resp: no sob. No cough. Gastrointestinal: +abdominal pain, nausea and diarrhea/loose BM. Genitourinary: no urinary sx, hematuria. MUSCULOSKELETAL: No joint pain and swelling. No neck or back pain. SKIN: no redness or skin changes, no discharge, no rash. No wounds. Hematologic: no easy bruising/bleeding. NEUROLOGIC: No headache, dizziness, LOC or altered mental status. No weakness, numbness or tingling. Psych: no anxiety or depression Allergic/Immunologic: no allergies All other systems reviewed and negative, or as documented in HPI. Physical exam General: Well appearing, awake and alert, NAD. HEENT: NCAT, PERRL, EOMI, clear conjunctiva, anicteric, moist mucus membranes, clear oropharynx, no oral lesions.. Neck: neck supple, FROM Resp: CTAB, normal and even respirations, no respiratory distress CVS: RRR, no murmurs, 2+ peripheral pulses throughout, no peripheral edema Abdomen: soft, obese, +RLQ suprapubic and LLQ tenderness. no CVAT. no rebound or guarding. Back: nontender, normal inspection and ROM MSK: no edema, JULIO x4, ROM intact. No clubbing or cyanosis. normal bulk and tone. Extremities: no calf tenderness Neuro: alert, oriented appropriately; no focal neurologic deficits Psych: Calm and cooperative Skin: warm and well perfused, cap refill <2 sec, normal color, no rash or skin discoloration. 04/07/20 13:58 04/07/20 14:35 04/07/20 15:06 Past History - Medical History Allergies/Adverse Reactions: Allergies Allergy/AdvReac Type Severity Reaction Status Date / Time Penicillins Allergy Intermediate rash Verified 04/07/20 13:15 poison [place] extract Allergy Intermediate Rash Verified 04/07/20 13:15 [Poison [place] Extract] oxycodone Allergy Verified 04/07/20 13:15 Bee stings Allergy Severe Swelling Uncoded 04/07/20 13:15 TAE Allergy Mild Swelling Uncoded 04/07/20 13:15 Home Medications: Ambulatory Orders Aspirin [Aspir-Low] 81 mg PO DAILY 11/07/14 Multivitamin [Daily Vitamin] 1 each PO DAILY tablet 11/07/14 Atorvastatin Ca [Lipitor] 10 mg PO HS 12/07/16 Levothyroxine [Synthroid -] 25 mcg PO DAILY 12/07/16 metFORMIN HCL [Glucophage -] 500 mg PO BID@0700,1630 tablet 07/06/18 Cholecalciferol (Vitamin D3) [Vitamin D3] 2,000 unit PO DAILY 04/07/20 Anemia: No Asthma: No Cancer: No Cardiac Disorders: No CVA: No COPD: No CHF: No Dementia: No Diabetes: Yes (DX 1989) GI Disorders: No Disorders: No HTN: Yes (DX 2003) Hypercholesterolemia: Yes (DX 2003) Liver Disease: No Seizures: No Thyroid Disease: Yes (HYPOTHYROIDISM) - Surgical History Abdominal Surgery: No Appendectomy: No Cardiac Surgery: No Cholecystectomy: No Lung Surgery: No Neurologic Surgery: No Orthopedic Surgery: Yes (EPIDURAL STERIOD INJECTION L4-L5) - Immunization History TDAP Vaccination: Yes (2016) Immunization Up to Date: Yes - Psycho-Social/Smoking History Smoking History: Former smoker Have you smoked in the past 12 months: No Number of Cigarettes Smoked Daily: 0 If you are a former smoker, when did you quit?: 1992 Procedures - Additional Procedures Additional Procedures: other (ngt placement for sbo decompression. 18 [place] ng t, uncomplicated. 60cm at nose. axr to confirm. no complications) Heart Score/ECG Review #1 ECG reviewed & interpreted by me at: 13:45 General ECG Interpretation: Sinus Rhythm Compared to previous ECG there are: Changes noted 04/07/20 14:01 EKG sinus tachycardia on 112 bpm no interval abnormalities, narrow QRS, ST and T wave segments and morphology normal. Nonspecific T wave abnormalities ED Treatment Course - LABORATORY CBC & Chemistry Diagram: 04/07/20 13:58 04/07/20 13:33 Medical Decision Making - Medical Decision Making 04/07/20 14:00 Vital Signs Temp Pulse Resp BP Pulse Ox 98.2 F 112 H 20 133/63 98 04/07/20 13:15 04/07/20 13:15 04/07/20 13:15 04/07/20 13:15 04/07/20 13:15 vitals reviewed, +tachy. likely from pain no fever, nontoxic concern for recurrent SBO, similar to prior episodes no abdominal surgeries, unclear etiology DDx abdominal pain: Renal colic, biliary colic, metabolic/electrolyte deran gements. GERD, PUD, esophageal spasm, pancreatitis, hepatitis, constipation, colitis, gastroenteritis, cholecystitis, UTI, pyelonephritis, ileus, SBO, medication side effect, hernia, appendicitis, diverticulitis, mesenteric ischemia. msk strain, mesenteric adenitis, psoas abscess. IVF, tylenol for analgesia, reassess no antiemetics needed labs and lytes wnl lactic normal CT a/p with contrast to eval for SBO, alternative abdominal pathologies. more likely SBO in clinical setting. no prior surgeries, always managed conservatively, unclear etiology 04/07/20 15:04 CT abdomen and pelvis with distal small bowel obstruction, as there is thickened mildly dilated distal small bowel loops especially with mural thickening and edema of the terminal ileum. This could be inflammatory versus infectious. Similar appearance compared to prior CT scan showing obstruction in the same general location - NGT, NPO, IVF, pain control - ngt placed 18 [place], no complication. 60cm at the left nare. given anxiolysis prior and viscous lidocaine. no complications. - axr confirms ngt with tip in the stomach. - set to LIWS. - surgery cs dr abraham - agree with plan, no further recs admitting to [facility]/surg [facility], s/o and admitting to [facility], s/o to Dr. Gallego. 04/07/20 16:35 04/07/20 17:34 Discharge - Discharge Information Problems reviewed: Yes Clinical Impression/Diagnosis: SBO (small bowel obstruction) Condition: Guarded - Admission Yes - Follow up/Referral - Patient Discharge Instructions - Post Discharge Activity
[2020-04-07 14:01] LABS: BASO % 4.4 % (0-2.0); EOS % 0.2 % (0-4.5); HEMOGLOBIN 11.5 GM/dl (10.7-15.3); LYMPH % 11.8 % (8-40); MCH 26.9 pg (25.7-33.7); MCHC 31.9 g/dl (32.0-36.0); MEAN CELL VOLUME 84.3 fl (80-96); MEAN PLT VOLUME 7.9 fl (7.5-11.1); MONO % 9.5 % (3.8-10.2); NEUT % 74.1 % (42.8-82.8); PLATELET COUNT 553 K/MM3 (134-434); RBC 4.27 M/mm3 (3.60-5.2); RDW 15.1 % (11.6-15.6); WHITE BLOOD COUNT 11.7 K/mm3 (4.0-10.8)
[2020-04-07] MEDS ORDERED: ACETAMINOPHEN 1000 MG/100 ML VIAL (NON FORMULARY) IVPB ONE (14:24)
[2020-04-07] MEDS ORDERED: SODIUM CHLORIDE 0.9% 500 ML INFUS.BAG IV ONE (14:24)
[2020-04-07] MEDS ORDERED: ACETAMINOPHEN INJECTION 100 ML IVPB ONE (14:28)
[2020-04-07 14:58] LABS: ALBUMIN 3.5 g/dl (3.4-5.0); BILIRUBIN,TOTAL 0.6 mg/dl (0.2-1); CALCIUM 9.4 mg/dl (8.5-10); CREATININE 0.8 mg/dl (0.55-1.3); POTASSIUM 4.2 mmol/L (3.5-5.1); TOT PROT 6.7 g/dl (6.4-8.2)
[2020-04-07] MEDS ORDERED: MIDAZOLAM HCL 2 MG/2 ML SINGLE DOSE VIAL IVPUSH ONE (15:07)
[2020-04-07] MEDS ORDERED: MIDAZOLAM HCL 2 MG/2 ML SINGLE DOSE VIAL ONE (15:17)
[2020-04-07] MEDS ORDERED: LIDOCAINE VISCOUS 2% ORAL/TOP 20 ML UNIT-DOSE CUP ONE (16:18)
[2020-04-07] MEDS ORDERED: LIDOCAINE VISCOUS 2% ORAL/TOP 20 ML UNIT-DOSE CUP MM ONE (16:18)
[2020-04-07 18:01] VITALS: BMI 29.8
[2020-04-07] MEDS ORDERED: ACETAMINOPHEN 1000 MG/100 ML VIAL (NON FORMULARY) IVPB PRN (21:14)
--- NOTE | 2020-04-07 22:02 | HP ---
Admitting History and Physical - Primary Care Physician PCP: Russell Piper - Admission Chief Complaint: Abdominal Pain History of Present Illness: This is a 89 y/o female with a significant PMHx of recurrent SBOs, HTN, Hypothyroidism, Type II NIDDM, OA. Who presents to the ED with sharp lower abdominal pain started yesterday, worse today. She reports that the pain is similar to her prior obstructions. Patient reports having loose diarrhea yesterday, nothing today. She reports that her appetite has been poor since her prior obstructions. She reports drinking liquids today nothing solid, last meal- sandwich yesterday. Patient denies fever, chills, cough, SOB, SARMIENTO, dizziness, CP, palpitations, N/V, hematochezia, melena, hematuria, dysuria. Patient denies sick contacts or recent travel. History Source: Patient Limitations to Obtaining History: No Limitations - Past Medical History Cardiovascular: Yes: HTN, Hyperlipdemia Gastrointestinal: Yes: Constipation, Other (SBO x 3-4) ...: No Musculoskeletal: Yes: Chronic low back pain, Other (neck pain/shooting pains up into head) Endocrine: Yes: Diabetes Mellitus, Hypothyroidism - Past Surgical History Past Surgical History: Yes: Laminectomy Additional Past Surgical History: L4-L5 Steroid Injection Left Shoulder - Smoking History Smoking history: Former smoker Have you smoked in the past 12 months: No Aproximately how many cigarettes per day: 0 If you are a former smoker, when did you quit?: 1992 - Alcohol/Substance Use Hx Alcohol Use: Yes (social) History of Substance Use: reports: None - Social History Usual Living Arrangement: Yes: With Spouse ADL: Independent Occupation: retired History of Recent Travel: No Home Medications - Allergies Allergies/Adverse Reactions: Allergies Allergy/AdvReac Type Severity Reaction Status Date / Time Penicillins Allergy Intermediate rash Verified 04/07/20 13:15 poison [place] extract Allergy Intermediate Rash Verified 04/07/20 13:15 [Poison [place] Extract] oxycodone Allergy Verified 04/07/20 13:15 Bee stings Allergy Severe Swelling Uncoded 04/07/20 13:15 TAE Allergy Mild Swelling Uncoded 04/07/20 13:15 - Home Medications Home Medications: Ambulatory Orders Aspirin [Aspir-Low] 81 mg PO DAILY 11/07/14 Multivitamin [Daily Vitamin] 1 each PO DAILY tablet 11/07/14 Atorvastatin Ca [Lipitor] 10 mg PO HS 12/07/16 Levothyroxine [Synthroid -] 25 mcg PO DAILY 12/07/16 metFORMIN HCL [Glucophage -] 500 mg PO BID@0700,1630 tablet 07/06/18 Cholecalciferol (Vitamin D3) [Vitamin D3] 2,000 unit PO DAILY 04/07/20 Family Medical History Family History: As Documented Family Hx Coronary Artery Disease: Sister Family Hx Diabetes: Sister Review of Systems - Review of Systems Constitutional: reports: Loss of Appetite Eyes: reports: No Symptoms HENT: reports: No Symptoms Neck: reports: No Symptoms Cardiovascular: reports: No Symptoms Respiratory: reports: No Symptoms Gastrointestinal: reports: Abdominal Pain, Bloating, Constipation, Diarrhea Genitourinary: reports: No Symptoms Breasts: reports: No Symptoms Reported Musculoskeletal: reports: No Symptoms Integumentary: reports: No Symptoms Neurological: reports: No Symptoms Endocrine: reports: No Symptoms Hematology/Lymphatic: reports: No Symptoms Psychiatric: reports: No Symptoms Pain Intensity: 6 Physical Examination Vital Signs: Vital Signs Temperature 97.8 F 04/07/20 21:00 Pulse Rate 85 04/07/20 21:00 Respiratory Rate 18 04/07/20 21:00 Blood Pressure 153/59 L 04/07/20 21:00 O2 Sat by Pulse Oximetry (%) 99 04/07/20 21:00 Constitutional: Yes: Mild Distress, Obese Eyes: Yes: WNL, Conjunctiva Clear, EOM Intact, PERRL HENT: Yes: Other (Dry mucous membranes NGT- L Nare) Neck: Yes: Supple, Trachea Midline Cardiovascular: Yes: Regular Rate and Rhythm, S1, S2 Respiratory: Yes: Regular, CTA Bilaterally Gastrointestinal: Yes: Soft, Abdomen, Obese, Distention, Hypoactive Bowel Sounds, Tenderness (RLQ, LLQ) ...Rectal Exam: Yes: Deferred Renal/: Yes: WNL Breast(s): Yes: WNL Musculoskeletal: Yes: WNL Extremities: Yes: WNL Edema: No Peripheral Pulses WNL: Yes Integumentary: Yes: WNL Neurological: Yes: WNL, Alert, Oriented, Cran Nerves II-XII Intact ...Motor Strength: WNL Psychiatric: Yes: WNL, Alert, Oriented Labs: CBC, BMP 04/07/20 13:58 04/07/20 13:33 Laboratory Results - last 24 hr 04/07/20 04/07/20 04/07/20 13:33 13:33 13:58 WBC 11.7 H RBC 4.27 Hgb 11.5 Hct 36.0 MCV 84.3 MCH 26.9 MCHC 31.9 L RDW 15.1 Plt Count 553 H MPV 7.9 Absolute Neuts (auto) 8.7 Neutrophils % 74.1 Lymphocytes % 11.8 Monocytes % 9.5 Eosinophils % 0.2 Basophils % 4.4 H Sodium 134 L Potassium 4.2 Chloride 104 Carbon Dioxide 18 L Anion Gap 12 BUN 17.0 Creatinine 0.8 Est GFR (CKD-EPI)AfAm 76.29 Est GFR (CKD-EPI)NonAf 65.82 Random Glucose 128 H Lactic Acid Calcium 9.4 Total Bilirubin 0.6 AST 21 ALT 16 Alkaline Phosphatase 48 Creatine Kinase 54 Troponin I < 0.03 Total Protein 6.7 Albumin 3.5 Lipase 297 Urine Color Urine Appearance Urine pH Urine Protein Urine Glucose (UA) Urine Ketones Urine Blood Urine Nitrite Urine Bilirubin Urine Urobilinogen Ur Leukocyte Esterase 04/07/20 04/07/20 14:40 15:02 WBC RBC Hgb Hct MCV MCH MCHC RDW Plt Count MPV Absolute Neuts (auto) Neutrophils % Lymphocytes % Monocytes % Eosinophils % Basophils % Sodium Potassium Chloride Carbon Dioxide Anion Gap BUN Creatinine Est GFR (CKD-EPI)AfAm Est GFR (CKD-EPI)NonAf Random Glucose Lactic Acid 1.3 Calcium Total Bilirubin AST ALT Alkaline Phosphatase Creatine Kinase Troponin I Total Protein Albumin Lipase Urine Color Yellow Urine Appearance Clear Urine pH 5.0 Urine Protein Negative Urine Glucose (UA) Negative Urine Ketones Trace Urine Blood Negative Urine Nitrite Negative Urine Bilirubin Negative Urine Urobilinogen 0.2 Ur Leukocyte Esterase Negative Intake & Output 04/05/20 04/06/20 04/07/20 04/08/20 23:59 23:59 23:59 23:59 Intake Total 1084 Balance 1084 Weight 71.668 kg Current Medications Generic Name Dose Route Start Last Admin Trade Name Freq PRN Reason Stop Dose Admin Acetaminophen 1,000 mg 04/07/20 21:14 Ofirmev Injection - IVPB 04/08/20 21:14 Q6H PRN PAIN LEVEL 6-10 Enoxaparin Sodium 40 mg 04/08/20 10:00 Lovenox - SQ DAILY KAR Dextrose/Sodium Chloride 1,000 mls @ 42 mls/hr 04/07/20 21:15 D5-1/2ns - IV ASDIR KAR Imaging - Results X-ray: Report Reviewed, Image Reviewed Cat Scan: Report Reviewed, Image Reviewed EKG: Image Reviewed Problem List - Problems (1) Small bowel obstruction Assessment/Plan: hx recurrent SBOs CTAP image, report reviewed- distal small bowel obstruction, scattered diverticula of the left colon, no evidence of acute diverticulitis WBC 11.7 without L-shift Appreciate Surgical consult- Dr Jeffrey aware NGT placed in ED NGT with low intermittent suction ordered Bowel Rest Gentle IVF Monitor vitals Ofirmev prn Monitor CBC, CMP Code(s): K56.609 - UNSP INTESTNL OBST, UNSP TO PARTIAL VERSUS COMPLETE OBST (2) Generalized abdominal pain Assessment/Plan: see above Code(s): R10.84 - GENERALIZED ABDOMINAL PAIN (3) Diabetes Assessment/Plan: stable BGMs Hold home meds ISS when diet resumed Monitor CMP Code(s): E11.9 - TYPE 2 DIABETES MELLITUS WITHOUT COMPLICATIONS Qualifiers: Diabetes mellitus type: type 2 Diabetes mellitus mcc insulin use: without terminal press operator use Diabetes mellitus complication status: without complication Qualified Code(s): E11.9 - Type 2 diabetes mellitus without complications (4) HLD (hyperlipidemia) Assessment/Plan: Hold PO med for now 2/2 SBO Code(s): E78.5 - HYPERLIPIDEMIA, UNSPECIFIED Qualifiers: Hyperlipidemia type: pure hypercholesterolemia Qualified Code(s): E78.00 - Pure hypercholesterolemia, unspecified; E78.0 - Pure hypercholesterolemia (5) HTN (hypertension) Assessment/Plan: stable Monitor BP and treat with IV agent accordingly Hold PO med 2/2 SBO Code(s): I10 - ESSENTIAL (PRIMARY) HYPERTENSION Qualifiers: Hypertension type: essential hypertension Qualified Code(s): I10 - E ssential (primary) hypertension (6) Hypothyroid Assessment/Plan: Stable Continue Levothyroxine IV while NPO Code(s): E03.9 - HYPOTHYROIDISM, UNSPECIFIED Qualifiers: Hypothyroidism type: unspecified Qualified Code(s): E03.9 - Hypothyroidism, unspecified (7) Encounter for screening laboratory testing for COVID-19 virus Assessment/Plan: Low Risk COVID PCR-pending Isolation Precautions Code(s): Z11.59 - ENCOUNTER FOR SCREENING FOR OTHER VIRAL DISEASES Assessment/Plan This is a 89 y/o female with a significant PMHx of recurrent SBOs, HTN, Hypothyroidism, Type II NIDDM, OA. Admitted to M/S for SBO for further evaluation of their emergent condition. Plan: See Problem List FEN D50.45%NS@42ml/hr Replete lytes prn NPO DVT ppx OOB SCDs Lovenox SQ Dispo: Requires Inpatient Care Visit type - Medication Review Med list reviewed for High Risk Meds patients 65 and older: Yes - Emergency Visit Emergency Visit: Yes ED Registration Date: 04/07/20 Care time: The patient presented to the Emergency Department on the above date and was hospitalized for further evaluation of their emergent condition. - New Patient This patient is new to me today: Yes Date on this admission: 04/07/20 - Critical Care Critical Care patient: No
[2020-04-08] MEDS ORDERED: LACTATED RINGERS SOLUTION 1,000 ML/1,000 ML INFUS.BAG IV SCH (07:45)
--- NOTE | 2020-04-08 07:56 | CONSULT ---
- Consultation REQUESTING PROVIDER: CONSULT REQUEST: We have been asked to surgically evaluate this patient for SBO PCP:Elza Feliz NP HISTORY OF PRESENT ILLNESS: 89yo F h/o recurrent SBO last in November 2019. Pt presented to the ED with similar SBO symptoms, pt stated having abd pain for past 2 days. Denies vomiting but complains of nausea. Pt denies fever, chills, cp, sob. Pt had NGT placed in ER. CT abd/pel showed SBO. Pt states she passed a little flatus this am and abd pain is a little improved, but photographer still. PMHx: DM, HLD, hypothyroidism Home Medications Medication Instructions Recorded Aspirin [Aspir-Low] 81 mg PO DAILY 11/07/14 Multivitamin [Daily Vitamin] 1 each PO DAILY tablet 11/07/14 Atorvastatin Ca [Lipitor] 10 mg PO HS 12/07/16 Levothyroxine [Synthroid -] 25 mcg PO DAILY 12/07/16 metFORMIN HCL [Glucophage -] 500 mg PO BID@0700,1630 tablet 07/06/18 Cholecalciferol (Vitamin D3) 2,000 unit PO DAILY 04/07/20 [Vitamin D3] Allergies Allergy/AdvReac Type Severity Reaction Status Date / Time Penicillins Allergy Intermediate rash Verified 04/07/20 13:15 poison [place] extract Allergy Intermediate Rash Verified 04/07/20 13:15 [Poison [place] Extract] oxycodone Allergy Verified 04/07/20 13:15 Bee stings Allergy Severe Swelling Uncoded 04/07/20 13:15 TAE Allergy Mild Swelling Uncoded 04/07/20 13:15 REVIEW OF SYSTEMS: CONSTITUTIONAL: Absent: fever, chills, diaphoresis, generalized weakness, malaise, loss of appetite, weight change CARDIOVASCULAR: Absent: chest pain, syncope, palpitations, irregular heart rate, lightheadedness, peripheral edema RESPIRATORY: Absent: cough, shortness of breath, dyspnea with exertion, wheezing, stridor, hemoptysis GASTROINTESTINAL: Absent: abdominal pain, abdominal distension, nausea, vomiting, diarrhea, constipation, melena, hematochezia GENITOURINARY: Absent: dysuria, frequency, urgency, hesitancy, hematuria, flank pain, genital pain PHYSICAL EXAM: GENERAL: Awake, alert, and fully oriented, in no acute distress. HEAD: Normal with no signs of trauma. NGT in place with brownish discharge. EYES: PERRL, sclera anicteric, conjunctiva clear. NECK: Normal ROM, supple without lymphadenopathy, JVD, or masses. LUNGS: breathing comfortably, No accessory muscle use. HEART: Regular rate and rhythm. ABDOMEN: Soft, moderate diffuse tenderness, not distended, no guarding, no rebound, no masses. No organomegaly. MUSCULOSKELETAL: Normal ROM at all joints. No bony deformities or tenderness. No CVA tenderness. UPPER EXTREMITIES: 2+ pulses, warm, well-perfused. No cyanosis. No peripheral edema. LOWER EXTREMITIES: warm, well-perfused. No calf tenderness. No peripheral edema. NEUROLOGICAL: Normal speech, gait not observed. PSYCH: Cooperative. Good eye contact. Appropriate mood and affect. SKIN: Warm, dry, normal turgor, no rashes or lesions noted. Vital Signs Temperature 98.4 F 04/08/20 06:00 Pulse Rate 89 04/08/20 06:00 Respiratory Rate 18 04/08/20 06:00 Blood Pressure 146/72 04/08/20 06:00 O2 Sat by Pulse Oximetry (%) 98 04/08/20 06:00 Lab Results WBC 11.7 K/mm3 (4.0-10.8) H 04/07/20 13:58 RBC 4.27 M/mm3 (3.60-5.2) 04/07/20 13:58 Hgb 11.5 GM/dl (10.7-15.3) 04/07/20 13:58 Hct 36.0 % (32.4-45.2) 04/07/20 13:58 MCV 84.3 fl (80-96) 04/07/20 13:58 MCHC 31.9 g/dl (32.0-36.0) L 04/07/20 13:58 RDW 15.1 % (11.6-15.6) 04/07/20 13:58 Plt Count 553 K/MM3 (134-434) H 04/07/20 13:58 Sodium 134 mmol/L (136-145) L 04/07/20 13:33 Potassium 4.2 mmol/L (3.5-5.1) 04/07/20 13:33 Chloride 104 mmol/L (98-107) 04/07/20 13:33 Carbon Dioxide 18 mmol/L (21-32) L 04/07/20 13:33 Anion Gap 12 MMOL/L (8-16) 04/07/20 13:33 BUN 17.0 mg/dl (7-18) 04/07/20 13:33 Creatinine 0.8 mg/dl (0.55-1.3) 04/07/20 13:33 Random Glucose 128 mg/dl (74-106) H 04/07/20 13:33 Calcium 9.4 mg/dl (8.5-10) 04/07/20 13:33 CTAP image, report reviewed- distal small bowel obstruction, scattered diverticula of the left colon, no evidence of acute diverticulitis Problem List - Problems (1) Small bowel obstruction Assessment/Plan: Plan -NPO, IVF, NGT on low continuous suction -f/up abd x-ray this am -serial abd exams -will follow Pt discussed with Dr. Jeffrey who agrees with plan Code(s): K56.609 - UNSP INTESTNL OBST, UNSP TO PARTIAL VERSUS COMPLETE OBST
[2020-04-08 08:33] LABS: BASO % 0.4 % (0-2.0); HEMATOCRIT 33.7 % (32.4-45.2); HEMOGLOBIN 10.7 GM/dl (10.7-15.3); LYMPH % 28.6 % (8-40); MCH 26.2 pg (25.7-33.7); MCHC 31.7 g/dl (32.0-36.0); MEAN CELL VOLUME 82.5 fl (80-96); MEAN PLT VOLUME 7.9 fl (7.5-11.1); PLATELET COUNT 485 K/MM3 (134-434); RBC 4.09 M/mm3 (3.60-5.2); RDW 14.8 % (11.6-15.6); WHITE BLOOD COUNT 5.1 K/mm3 (4.0-10.8)
[2020-04-08 08:51] LABS: ALBUMIN 3.1 g/dl (3.4-5.0); BILIRUBIN,TOTAL 0.6 mg/dl (0.2-1); CALCIUM 8.9 mg/dl (8.5-10); CREATININE 0.7 mg/dl (0.55-1.3); TOT PROT 6.4 g/dl (6.4-8.2)
[2020-04-08] MEDS ORDERED: PT OWN MED DRAWER 7, Y5N ONE (09:31)
[2020-04-08] MEDS ORDERED: ONDANSETRON 4 MG/2 ML VIAL IVPB ONE (09:48)
--- NOTE | 2020-04-08 09:49 | PN ---
Physical Exam: SUBJECTIVE: Patient seen and examined. Denies pain. Complaining of nausea. Small amount of flatus today. Thinks abdomen is much less distended. OBJECTIVE: Vital Signs Period Temp Pulse Resp BP Sys/Contreras Pulse Ox Last 24 Hr 97.8 F-98.6 F 85-112 16-20 131-153/59-73 96-99 GENERAL: The patient is awake, alert, and fully oriented, in no acute distress. HEAD: Normal with no signs of trauma. EYES: PERRL, extraocular movements intact, sclera anicteric, conjunctiva clear. No ptosis. ENT: Ears normal, nares patent, oropharynx clear without exudates, moist mucous membranes. NECK: Trachea midline, full range of motion, supple. LUNGS: Breath sounds equal, clear to auscultation bilaterally, no wheezes, no crackles, no accessory muscle use. HEART: Regular rate and rhythm, S1, S2 without murmur, rub or gallop. ABDOMEN: Soft, nontender, nondistended, normoactive bowel sounds, no guarding, no rebound, no hepatosplenomegaly, no masses. Bowel sounds present but hypoactive. EXTREMITIES: 2+ pulses, warm, well-perfused, no edema. NEUROLOGICAL: Cranial nerves II through XII grossly intact. Normal speech, gait not observed. PSYCH: Normal mood, normal affect. SKIN: Warm, dry, normal turgor, no rashes or lesions noted. Laboratory Results - last 24 hr 04/07/20 04/07/20 04/07/20 13:33 13:33 13:58 WBC 11.7 H RBC 4.27 Hgb 11.5 Hct 36.0 MCV 84.3 MCH 26.9 MCHC 31.9 L RDW 15.1 Plt Count 553 H MPV 7.9 Absolute Neuts (auto) 8.7 Neutrophils % 74.1 Lymphocytes % 11.8 Monocytes % 9.5 Eosinophils % 0.2 Basophils % 4.4 H Sodium 134 L Potassium 4.2 Chloride 104 Carbon Dioxide 18 L Anion Gap 12 BUN 17.0 Creatinine 0.8 Est GFR (CKD-EPI)AfAm 76.29 Est GFR (CKD-EPI)NonAf 65.82 Random Glucose 128 H Lactic Acid Calcium 9.4 Total Bilirubin 0.6 AST 21 ALT 16 Alkaline Phosphatase 48 Creatine Kinase 54 Troponin I < 0.03 Total Protein 6.7 Albumin 3.5 Lipase 297 Urine Color Urine Appearance Urine pH Urine Protein Urine Glucose (UA) Urine Ketones Urine Blood Urine Nitrite Urine Bilirubin Urine Urobilinogen Ur Leukocyte Esterase 04/07/20 04/07/20 04/08/20 14:40 15:02 07:35 WBC 5.1 RBC 4.09 Hgb 10.7 Hct 33.7 MCV 82.5 MCH 26.2 MCHC 31.7 L RDW 14.8 Plt Count 485 H MPV 7.9 Absolute Neuts (auto) 3.0 Neutrophils % 59.0 Lymphocytes % 28.6 Monocytes % 10.0 Eosinophils % 2.0 Basophils % 0.4 Sodium Potassium Chloride Carbon Dioxide Anion Gap BUN Creatinine Est GFR (CKD-EPI)AfAm Est GFR (CKD-EPI)NonAf Random Glucose Lactic Acid 1.3 Calcium Total Bilirubin AST ALT Alkaline Phosphatase Creatine Kinase Troponin I Total Protein Albumin Lipase Urine Color Yellow Urine Appearance Clear Urine pH 5.0 Urine Protein Negative Urine Glucose (UA) Negative Urine Ketones Trace Urine Blood Negative Urine Nitrite Negative Urine Bilirubin Negative Urine Urobilinogen 0.2 Ur Leukocyte Esterase Negative 04/08/20 07:35 WBC RBC Hgb Hct MCV MCH MCHC RDW Plt Count MPV Absolute Neuts (auto) Neutrophils % Lymphocytes % Monocytes % Eosinophils % Basophils % Sodium 138 Potassium 4.0 Chloride 106 Carbon Dioxide 23 Anion Gap 9 BUN 11.0 Creatinine 0.7 Est GFR (CKD-EPI)AfAm 89.66 Est GFR (CKD-EPI)NonAf 77.36 Random Glucose 115 H Lactic Acid Calcium 8.9 Total Bilirubin 0.6 AST 19 ALT 12 L Alkaline Phosphatase 49 Creatine Kinase Troponin I Total Protein 6.4 Albumin 3.1 L Lipase Urine Color Urine Appearance Urine pH Urine Protein Urine Glucose (UA) Urine Ketones Urine Blood Urine Nitrite Urine Bilirubin Urine Urobilinogen Ur Leukocyte Esterase Active Medications Generic Name Dose Route Start Last Admin Trade Name Freq PRN Reason Stop Dose Admin Acetaminophen 1,000 mg 04/07/20 21:14 Ofirmev Injection - IVPB 04/08/20 21:14 Q6H PRN PAIN LEVEL 6-10 Enoxaparin Sodium 40 mg 04/08/20 10:00 Lovenox - SQ DAILY KAR Dextrose/Sodium Chloride 1,000 mls @ 42 mls/hr 04/07/20 21:15 D5-1/2ns - IV ASDIR KAR Insulin Aspart 1 vial 08/31/20 11:00 Novolog Vial Sliding Scale - SQ TIDAC [facility] Protocol Levothyroxine Sodium 12.5 mcg 04/08/20 10:00 Synthroid Injection - IVPUSH DAILY [facility] ASSESSMENT/PLAN: This is a 89 y/o female with HTN, hypothyroidism, Type II NIDDM, and OA admitted with recurrent SBO. (1) Small bowel obstruction Assessment/Plan: CTAP image, report reviewed- distal small bowel obstruction, scattered diverticula of the left colon, no evidence of acute diverticulitis WBC 11.7 without L-shift NGT to low intermittent - 400 mL output NPO IVF Ofirmev prn (2) Diabetes Assessment/Plan: BGMs Hold home meds ISS when diet resumed (3) HLD (hyperlipidemia) Assessment/Plan: Hold PO med for now 2/2 SBO (4) HTN (hypertension) Assessment/Plan: Slightly above goal (6) Hypothyroid Assessment/Plan: Stable Continue Levothyroxine IV while NPO Code(s): E03.9 - HYPOTHYROIDISM, UNSPECIFIED Qualifiers: Hypothyroidism type: unspecified Qualified Code(s): E03.9 - Hypothyroidism, unspecified (7) Encounter for screening laboratory testing for COVID-19 virus Assessment/Plan: Low Risk COVID PCR-pending Isolation Precautions Code(s): Z11.59 - ENCOUNTER FOR SCREENING FOR OTHER VIRAL DISEASES Dispo: Requires Inpatient Care Visit type - Emergency Visit Emergency Visit: Yes ED Registration Date: 04/07/20 Care time: The patient presented to the Emergency Department on the above date and was hospitalized for further evaluation of their emergent condition. - New Patient This patient is new to me today: Yes Date on this admission: 04/09/20 - Critical Care Critical Care patient: No - Discharge Referral Referred to [facility] Med P.C.: No - Medication Review Med list reviewed for High Risk Meds patients 65 and older: Yes
[2020-04-08] MEDS: LEVOTHYROXINE SODIUM 100 MCG VIAL IVPUSH SCH (09:53)
[2020-04-08] MEDS: ENOXAPARIN NA (PORCINE) 40 MG/0.4 ML DISP.SYRIN SQ SCH (09:53)
--- NOTE | 2020-04-08 11:21 | EKG ---
Test Reason : Blood Pressure : / mmHG Vent. Rate : 112 BPM Atrial Rate : 112 BPM P-R Int : 138 ms QRS Dur : 066 ms QT Int : 316 ms P-R-T Axes : 068 -11 070 degrees QTc Int : 431 ms SINUS TACHYCARDIA OTHERWISE NORMAL ECG WHEN COMPARED WITH ECG OF 12-NOV-2019 04:39, NO SIGNIFICANT CHANGE WAS FOUND Confirmed by ANTOINE REDD MD ([id number]) on 04/08/2020 11:20:57 AM Referred By: SAROJ NOEL Confirmed By:ANTOINE REDD MD
[2020-04-08] MEDS ORDERED: ENALAPRILAT DIHYDRATE 1.25 MG/1 ML VIAL IVPB PRN (12:29)
[2020-04-08] MEDS: INSULIN SLIDING SCALE (NOVOLOG) 1 VIAL SQ SCH ×2 (12:37→17:18)
--- NOTE | 2020-04-08 18:49 | PN ---
Progress Note (short form) - Note Progress Note: Attending Surgeon No c/o; passing flatus VSS AF abdo-soft; minimal if any ttp; non distended and no tympanitic IMP: resolving recurrent SBO PLAN: NGT to BSB; continue IVF Galo Jeffrey MD FACS
[2020-04-09] MEDS: DEXTROSE 5%-0.45% SALINE 1,000 ML IV SCH ×3 (01:54→21:18)
[2020-04-09] MEDS: INSULIN SLIDING SCALE (NOVOLOG) 1 VIAL SQ SCH ×3 (06:55→18:52)
[2020-04-09] MEDS ORDERED: ENALAPRILAT DIHYDRATE 2.5 MG/2 ML VIAL IVPB PRN (07:27)
--- NOTE | 2020-04-09 07:58 | PN ---
Progress Note (short form) - Note Progress Note: Attending Surgeon No c/o; passing flatus VSS AF abdo-soft; baseline ? tenderness ?; non distended; non tympanitic NGT overnite to gravity w/o appreciable output IMP: resolving SBO PLAN: NGT removed and start trial of clear liquids. Galo Jeffrey MD FACS
[2020-04-09 08:04] LABS: BASO % 0.3 % (0-2.0); EOS % 1.2 % (0-4.5); HEMATOCRIT 32.1 % (32.4-45.2); HEMOGLOBIN 10.2 GM/dl (10.7-15.3); LYMPH % 17.2 % (8-40); MCH 26.3 pg (25.7-33.7); MCHC 31.9 g/dl (32.0-36.0); MEAN CELL VOLUME 82.6 fl (80-96); MEAN PLT VOLUME 7.6 fl (7.5-11.1); MONO % 7.9 % (3.8-10.2); NEUT % 73.4 % (42.8-82.8); PLATELET COUNT 461 K/MM3 (134-434); RBC 3.89 M/mm3 (3.60-5.2); RDW 14.7 % (11.6-15.6)
[2020-04-09 08:07] LABS: CALCIUM 8.7 mg/dl (8.5-10); CREATININE 0.7 mg/dl (0.55-1.3); POTASSIUM 3.3 mmol/L (3.5-5.1)
--- NOTE | 2020-04-09 09:08 | PN ---
Physical Exam: SUBJECTIVE: Patient seen and examined. Feels better. No abd pain or nausea. Passed small amount of flatus this morning. OBJECTIVE: Ngt removed after minimal output when placed to gravity. Vital Signs Period Temp Pulse Resp BP Sys/Contreras Pulse Ox Last 24 Hr 98.3 F-99.4 F 79-99 16-18 119-156/55-78 94-98 GENERAL: The patient is awake, alert, and fully oriented, in no acute distress. HEAD: Normal with no signs of trauma. EYES: PERRL, extraocular movements intact, sclera anicteric, conjunctiva clear. No ptosis. ENT: Ears normal, nares patent, oropharynx clear without exudates, moist mucous membranes. NECK: Trachea midline, full range of motion, supple. LUNGS: Breath sounds equal, clear to auscultation bilaterally, no wheezes, no crackles, no accessory muscle use. HEART: Regular rate and rhythm, S1, S2 without murmur, rub or gallop. ABDOMEN: Soft, nontender, nondistended, normoactive bowel sounds, no guarding, no rebound, no hepatosplenomegaly, no masses. EXTREMITIES: 2+ pulses, warm, well-perfused, no edema. NEUROLOGICAL: Cranial nerves II through XII grossly intact. Normal speech, gait not observed. PSYCH: Normal mood, normal affect. SKIN: Warm, dry, normal turgor, no rashes or lesions noted Laboratory Results - last 24 hr 04/08/20 04/08/20 04/08/20 07:35 11:43 17:11 WBC RBC Hgb Hct MCV MCH MCHC RDW Plt Count MPV Absolute Neuts (auto) Neutrophils % Lymphocytes % Monocytes % Eosinophils % Basophils % Sodium 138 Potassium 4.0 Chloride 106 Carbon Dioxide 23 Anion Gap 9 BUN 11.0 Creatinine 0.7 Est GFR (CKD-EPI)AfAm 89.66 Est GFR (CKD-EPI)NonAf 77.36 POC Glucometer 103 97 Random Glucose 115 H Calcium 8.9 Total Bilirubin 0.6 AST 19 ALT 12 L Alkaline Phosphatase 49 Total Protein 6.4 Albumin 3.1 L 04/08/20 04/09/20 04/09/20 22:48 06:10 07:32 WBC 7.0 RBC 3.89 Hgb 10.2 L Hct 32.1 L MCV 82.6 MCH 26.3 MCHC 31.9 L RDW 14.7 Plt Count 461 H MPV 7.6 Absolute Neuts (auto) 5.1 Neutrophils % 73.4 Lymphocytes % 17.2 Monocytes % 7.9 Eosinophils % 1.2 Basophils % 0.3 Sodium Potassium Chloride Carbon Dioxide Anion Gap BUN Creatinine Est GFR (CKD-EPI)AfAm Est GFR (CKD-EPI)NonAf POC Glucometer 105 118 Random Glucose Calcium Total Bilirubin AST ALT Alkaline Phosphatase Total Protein Albumin 04/09/20 07:32 WBC RBC Hgb Hct MCV MCH MCHC RDW Plt Count MPV Absolute Neuts (auto) Neutrophils % Lymphocytes % Monocytes % Eosinophils % Basophils % Sodium 138 Potassium 3.3 L Chloride 104 Carbon Dioxide 26 Anion Gap 8 BUN 10.0 Creatinine 0.7 Est GFR (CKD-EPI)AfAm 89.66 Est GFR (CKD-EPI)NonAf 77.36 POC Glucometer Random Glucose 114 H Calcium 8.7 Total Bilirubin AST ALT Alkaline Phosphatase Total Protein Albumin Active Medications Generic Name Dose Route Start Last Admin Trade Name Freq PRN Reason Stop Dose Admin Enalaprilat 0.625 mg 04/09/20 07:27 Vasotec Injection - IVPB Q6H PRN HYPERTENSION Enoxaparin Sodium 40 mg 04/08/20 10:00 04/08/20 09:53 Lovenox - SQ 40 mg DAILY KAR Administration Dextrose/Sodium Chloride 1,000 mls @ 42 mls/hr 04/07/20 21:15 04/09/20 01:55 D5-1/2ns - IV 42 mls/hr ASDIR KAR Administration Insulin Aspart 1 vial 04/08/20 11:00 04/09/20 06:55 Novolog Vial Sliding Scale - SQ Not Given TIDAC [facility] Protocol Levothyroxine Sodium 12.5 mcg 04/08/20 10:00 04/08/20 09:53 Synthroid Injection - IVPUSH 12.5 mcg DAILY KAR Administration ASSESSMENT/PLAN: This is a 89 y/o female with HTN, hypothyroidism, Type II NIDDM, and OA admitted with recurrent SBO. (1) Small bowel obstruction Assessment/Plan: CTAP image, report reviewed- distal small bowel obstruction, scattered diverticula of the left colon, no evidence of acute diverticulitis Follow up AXR 04/08 demonstrated no obstruction Ngt removed this morning Clear liquid diet Surgery following (2) Diabetes Assessment/Plan: BGMs Hold home meds ISS when diet resumed (3) HLD (hyperlipidemia) Assessment/Plan: Hold PO med for now 2/2 SBO (4) HTN (hypertension) Assessment/Plan: Slightly above goal Resume home meds (6) Hypothyroid Assessment/Plan: Resume levothyroxine PO (7) Encounter for screening laboratory testing for COVID-19 virus Assessment/Plan: Negative DISPO: Requires inpatient services pending advancement of diet. Visit type - Emergency Visit Emergency Visit: Yes ED Registration Date: 04/07/20 Care time: The patient presented to the Emergency Department on the above date and was hospitalized for further evaluation of their emergent condition. - New Patient This patient is new to me today: No - Critical Care Critical Care patient: No - Discharge Referral Referred to [facility] Med P.C.: No - Medication Review Med list reviewed for High Risk Meds patients 65 and older: Yes
[2020-04-09] MEDS ORDERED: PT OWN MED DRAWER 7, Y5N ONE (09:27)
[2020-04-09] MEDS: ENOXAPARIN NA (PORCINE) 40 MG/0.4 ML DISP.SYRIN SQ SCH (09:30)
[2020-04-09] MEDS: LEVOTHYROXINE SODIUM 100 MCG VIAL IVPUSH SCH (09:32)
[2020-04-09] MEDS ORDERED: POTASSIUM CHLORIDE TABS 20 MEQ TABLET.ER (FP) PO ONE (14:15)
[2020-04-09] MEDS: ATORVASTATIN CA 10 MG TABLET (FP) PO SCH (21:19)
[2020-04-10] MEDS: INSULIN SLIDING SCALE (NOVOLOG) 1 VIAL SQ SCH ×3 (06:39→18:16)
[2020-04-10] MEDS: LEVOTHYROXINE NA 25 MCG TABLET (FP) PO SCH (06:39)
--- NOTE | 2020-04-10 07:22 | PN ---
Progress Note (short form) - Note Progress Note: Surgery: Pt states that she isn't having any abd pain. SHe passed flatus yesterday and had a small BM. No anusea or emesis with clears. Vital Signs Period Temp Pulse Resp BP Sys/Contreras Pulse Ox Last 24 Hr 97.8 F-98.4 F 68-87 16-18 118-133/56-66 99-100 GEN: A&0x3, NAD ABD: soft, non-distended, mild right mid abd at level of umbilicus. No rebound or guarding. CBC, BMP 04/10/20 06:35 04/10/20 06:35 A/p: 89 yo female with resolving SBO Advanced diet this am and monitor abd pain/ nausea symptoms. She gives a history of intermittent pain. Last colonoscopy in [address] Bowen. She has been seen over the years for repeated SBO. Recommend to continue to monitor today on a solid diet and wait for discharge until she has another bowel movement and or has no abd pain with diet. D/w Shabnam Jeffrey D/u with Dr Bowen next week as an outpt <Michelle Hendricks - Last Filed: 04/11/20 07:14> - Note Progress Note: Attending Surgeon: I personally saw and examined the patient. My examination reveals a patient with a small bowel obstruction. I discussed the case with the surgical PA and agree w ith their findings and plan of care with any exceptions as noted. ~ Galo Jeffrey MD, FACS <Galo Jeffrey - Last Filed: 04/12/20 10:27>
[2020-04-10 08:16] LABS: BASO % 1.4 % (0-2.0); CALCIUM 9.3 mg/dl (8.5-10); CREATININE 0.8 mg/dl (0.55-1.3); EOS % 2.1 % (0-4.5); HEMATOCRIT 34.7 % (32.4-45.2); LYMPH % 25.8 % (8-40); MCH 26.4 pg (25.7-33.7); MCHC 31.8 g/dl (32.0-36.0); MEAN CELL VOLUME 82.9 fl (80-96); MEAN PLT VOLUME 7.9 fl (7.5-11.1); NEUT % 64.7 % (42.8-82.8); PLATELET COUNT 546 K/MM3 (134-434); POTASSIUM 4.2 mmol/L (3.5-5.1); RBC 4.18 M/mm3 (3.60-5.2); RDW 15.1 % (11.6-15.6); WHITE BLOOD COUNT 6.1 K/mm3 (4.0-10.8)
[2020-04-10] MEDS: ASPIRIN COATED 81 MG TABLET.EC PO SCH (09:29)
[2020-04-10] MEDS: LISINOPRIL 10 MG TABLET (FP) PO SCH (09:29)
[2020-04-10] MEDS: ENOXAPARIN NA (PORCINE) 40 MG/0.4 ML DISP.SYRIN SQ SCH (09:29)
[2020-04-10] MEDS: ATORVASTATIN CA 10 MG TABLET (FP) PO SCH (21:47)
[2020-04-10] MEDS: DEXTROSE 5%-0.45% SALINE 1,000 ML IV SCH (21:47)
[2020-04-11] MEDS: LEVOTHYROXINE NA 25 MCG TABLET (FP) PO SCH (06:50)
[2020-04-11] MEDS: INSULIN SLIDING SCALE (NOVOLOG) 1 VIAL SQ SCH ×2 (06:54→12:02)
--- NOTE | 2020-04-11 08:23 | PN ---
Progress Note, Physician - Current Medication List Current Medications: Active Medications Aspirin (Ecotrin -) 81 mg PO DAILY [facility] Last Admin: 04/10/20 09:29 Dose: 81 mg Documented by: Atorvastatin Calcium (Lipitor -) 10 mg PO HS [facility] Last Admin: 04/10/20 21:47 Dose: 10 mg Documented by: Enoxaparin Sodium (Lovenox -) 40 mg SQ DAILY [facility] Last Admin: 04/10/20 09:29 Dose: 40 mg Documented by: Dextrose/Sodium Chloride (D5-1/2ns -) 1,000 mls @ 42 mls/hr IV ASDIR [facility] Last Admin: 04/10/20 21:47 Dose: Not Given Documented by: Insulin Aspart (Novolog Vial Sliding Scale -) 1 vial SQ TIDAC [facility]; Protocol Last Admin: 04/11/20 06:54 Dose: Not Given Documented by: Levothyroxine Sodium (Synthroid -) 25 mcg PO DAILY@0700 [facility] Last Admin: 04/11/20 06:50 Dose: 25 mcg Documented by: Lisinopril (Prinivil) 10 mg PO DAILY [facility] Last Admin: 04/10/20 09:29 Dose: 10 mg Documented by: - Objective Vital Signs: Vital Signs Temperature 97.3 F L 04/11/20 06:00 Pulse Rate 80 04/11/20 06:00 Respiratory Rate 18 04/11/20 06:00 Blood Pressure 99/79 04/11/20 06:00 O2 Sat by Pulse Oximetry (%) 100 04/11/20 06:00 Labs: CBC, BMP 04/10/20 06:35 04/10/20 06:35
[2020-04-11] MEDS: ASPIRIN COATED 81 MG TABLET.EC PO SCH (09:46)
[2020-04-11] MEDS: LISINOPRIL 10 MG TABLET (FP) PO SCH (09:46)
[2020-04-11] MEDS: ENOXAPARIN NA (PORCINE) 40 MG/0.4 ML DISP.SYRIN SQ SCH (09:47)
--- NOTE | 2020-04-11 10:26 | PN ---
Progress Note (short form) - Note Progress Note: SURGERY 89yo F h/o recurrent multiple SBO, pt seen and examined at bedside. Pt started on regular diet and is tolerating it well. Pt denies n/v, fever, chills. Pt passing flatus, but no had BM yet. Pt states abd pain greatly improved. Last Vital Signs Temp Pulse Resp BP Pulse Ox 98.2 F 90 18 118/52 L 100 04/11/20 09:38 04/11/20 09:38 04/11/20 09:38 04/11/20 09:38 04/11/20 09:38 CBC, BMP 04/10/20 06:35 04/10/20 06:35 PE: Gen: A&O x3 Resp: breathing comfortably Abd: soft, nontender, nondistended Ext: no edema <Andres Cleary - Last Filed: 04/11/20 10:24> - Note Progress Note: Attending Surgeon: I personally saw and examined the patient. My examination reveals a patient with a small bowel obstruction. I discussed the case with the surgical PA and agree with their findings and plan of care with any exceptions as noted. ~ Galo Jeffrey MD, FACS <Galo Jeffrey - Last Filed: 04/12/20 10:26> Problem List - Problems (1) Small bowel obstruction Assessment/Plan: Plan -pt appears to be doing well and is cleared from surgical standpoint for discharge -pt should follow up with Dr. Jeffrey in 1-2 weeks for follow up. Pt discussed with Dr. Jeffrey who agrees with plan. Code(s): K56.609 - UNSP INTESTNL OBST, UNSP TO PARTIAL VERSUS COMPLETE OBST <Andres Cleary - Last Filed: 04/11/20 10:24>
--- NOTE | 2020-04-11 10:45 | DS ---
Physical Exam: SUBJECTIVE: Patient seen and examined OBJECTIVE: Vital Signs Period Temp Pulse Resp BP Sys/Contreras Pulse Ox Last 24 Hr 97.3 F-98.2 F 67-90 18-18 99-128/48-79 98-100 PHYSICAL EXAM GENERAL: The patient is awake, alert, and fully oriented, in no acute distress. HEAD: Normal with no signs of trauma. EYES: PERRL, sclera anicteric, conjunctiva clear. ENT: Ears normal, nares patent, oropharynx clear without exudates, moist mucous membranes. NECK: Trachea midline, full range of motion, supple. LUNGS: Breath sounds equal, clear to auscultation bilaterally, no wheezes, no crackles, no accessory muscle use. HEART: Regular rate and rhythm, S1, S2 without murmur, rub or gallop. ABDOMEN: Soft, MILD tenderness to palpation of RUQ, nondistended, hypoactive bowel sounds, no guarding, no rebound, no hepatosplenomegaly, no masses. EXTREMITIES: 2+ pulses, warm, well-perfused, no edema. NEUROLOGICAL: Cranial nerves II through XII grossly intact. Normal speech, gait slow and steady. PSYCH: Normal mood, normal affect. SKIN: Warm, dry, normal turgor, no rashes or lesions noted. LABS Laboratory Results - last 24 hr 04/10/20 04/11/20 20:27 06:53 POC Glucometer 160 117 Laboratory Tests 04/07/20 04/07/20 04/07/20 13:33 13:33 13:58 WBC 11.7 H RBC 4.27 Hgb 11.5 Hct 36.0 MCV 84.3 MCH 26.9 MCHC 31.9 L RDW 15.1 Plt Count 553 H MPV 7.9 Absolute Neuts (auto) 8.7 Neutrophils % 74.1 Lymphocytes % 11.8 Monocytes % 9.5 Eosinophils % 0.2 Basophils % 4.4 H Sodium 134 L Potassium 4.2 Chloride 104 Carbon Dioxide 18 L Anion Gap 12 BUN 17.0 Creatinine 0.8 Est GFR (CKD-EPI)AfAm 76.29 Est GFR (CKD-EPI)NonAf 65.82 POC Glucometer Random Glucose 128 H Lactic Acid Calcium 9.4 Total Bilirubin 0.6 AST 21 ALT 16 Alkaline Phosphatase 48 Creatine Kinase 54 Troponin I < 0.03 Total Protein 6.7 Albumin 3.5 Lipase 297 Urine Color Urine Appearance Urine pH Urine Protein Urine Glucose (UA) Urine Ketones Urine Blood Urine Nitrite Urine Bilirubin Urine Urobilinogen Ur Leukocyte Esterase COVID-19 (UMAIR) 04/07/20 04/07/20 04/07/20 14:40 15:02 15:55 WBC RBC Hgb Hct MCV MCH MCHC RDW Plt Count MPV Absolute Neuts (auto) Neutrophils % Lymphocytes % Monocytes % Eosinophils % Basophils % Sodium Potassium Chloride Carbon Dioxide Anion Gap BUN Creatinine Est GFR (CKD-EPI)AfAm Est GFR (CKD-EPI)NonAf POC Glucometer Random Glucose Lactic Acid 1.3 Calcium Total Bilirubin AST ALT Alkaline Phosphatase Creatine Kinase Troponin I Total Protein Albumin Lipase Urine Color Yellow Urine Appearance Clear Urine pH 5.0 Urine Protein Negative Urine Glucose (UA) Negative Urine Ketones Trace Urine Blood Negative Urine Nitrite Negative Urine Bilirubin Negative Urine Urobilinogen 0.2 Ur Leukocyte Esterase Negative COVID-19 (UMAIR) Not detected 04/08/20 04/08/20 04/08/20 07:35 07:35 11:43 WBC 5.1 RBC 4.09 Hgb 10.7 Hct 33.7 MCV 82.5 MCH 26.2 MCHC 31.7 L RDW 14.8 Plt Count 485 H MPV 7.9 Absolute Neuts (auto) 3.0 Neutrophils % 59.0 Lymphocytes % 28.6 Monocytes % 10.0 Eosinophils % 2.0 Basophils % 0.4 Sodium 138 Potassium 4.0 Chloride 106 Carbon Dioxide 23 Anion Gap 9 BUN 11.0 Creatinine 0.7 Est GFR (CKD-EPI)AfAm 89.66 Est GFR (CKD-EPI)NonAf 77.36 POC Glucometer 103 Random Glucose 115 H Lactic Acid Calcium 8.9 Total Bilirubin 0.6 AST 19 ALT 12 L Alkaline Phosphatase 49 Creatine Kinase Troponin I Total Protein 6.4 Albumin 3.1 L Lipase Urine Color Urine Appearance Urine pH Urine Protein Urine Glucose (UA) Urine Ketones Urine Blood Urine Nitrite Urine Bilirubin Urine Urobilinogen Ur Leukocyte Esterase COVID-19 (UMAIR) 04/08/20 04/08/20 04/09/20 17:11 22:48 06:10 WBC RBC Hgb Hct MCV MCH MCHC RDW Plt Count MPV Absolute Neuts (auto) Neutrophils % Lymphocytes % Monocytes % Eosinophils % Basophils % Sodium Potassium Chloride Carbon Dioxide Anion Gap BUN Creatinine Est GFR (CKD-EPI)AfAm Est GFR (CKD-EPI)NonAf POC Glucometer 97 105 118 Random Glucose Lactic Acid Calcium Total Bilirubin AST ALT Alkaline Phosphatase Creatine Kinase Troponin I Total Protein Albumin Lipase Urine Color Urine Appearance Urine pH Urine Protein Urine Glucose (UA) Urine Ketones Urine Blood Urine Nitrite Urine Bilirubin Urine Urobilinogen Ur Leukocyte Esterase COVID-19 (UMAIR) 04/09/20 04/09/20 04/09/20 07:32 07:32 16:55 WBC 7.0 RBC 3.89 Hgb 10.2 L Hct 32.1 L MCV 82.6 MCH 26.3 MCHC 31.9 L RDW 14.7 Plt Count 461 H MPV 7.6 Absolute Neuts (auto) 5.1 Neutrophils % 73.4 Lymphocytes % 17.2 Monocytes % 7.9 Eosinophils % 1.2 Basophils % 0.3 Sodium 138 Potassium 3.3 L Chloride 104 Carbon Dioxide 26 Anion Gap 8 BUN 10.0 Creatinine 0.7 Est GFR (CKD-EPI)AfAm 89.66 Est GFR (CKD-EPI)NonAf 77.36 POC Glucometer 94 Random Glucose 114 H Lactic Acid Calcium 8.7 Total Bilirubin AST ALT Alkaline Phosphatase Creatine Kinase Troponin I Total Protein Albumin Lipase Urine Color Urine Appearance Urine pH Urine Protein Urine Glucose (UA) Urine Ketones Urine Blood Urine Nitrite Urine Bilirubin Urine Urobilinogen Ur Leukocyte Esterase COVID-19 (UMAIR) 04/10/20 04/10/20 04/10/20 01:46 06:35 06:35 WBC 6.1 RBC 4.18 Hgb 11.0 Hct 34.7 MCV 82.9 MCH 26.4 MCHC 31.8 L RDW 15.1 Plt Count 546 H MPV 7.9 Absolute Neuts (auto) 3.9 Neutrophils % 64.7 Lymphocytes % 25.8 Monocytes % 6.0 Eosinophils % 2.1 Basophils % 1.4 Sodium 138 Potassium 4.2 Chloride 107 Carbon Dioxide 25 Anion Gap 6 L BUN 9.0 Creatinine 0.8 Est GFR (CKD-EPI)AfAm 76.29 Est GFR (CKD-EPI)NonAf 65.82 POC Glucometer 103 Random Glucose 123 H Lactic Acid Calcium 9.3 Total Bilirubin AST ALT Alkaline Phosphatase Creatine Kinase Troponin I Total Protein Albumin Lipase Urine Color Urine Appearance Urine pH Urine Protein Urine Glucose (UA) Urine Ketones Urine Blood Urine Nitrite Urine Bilirubin Urine Urobilinogen Ur Leukocyte Esterase COVID-19 (UMAIR) 04/10/20 04/10/20 04/11/20 06:38 20:27 06:53 WBC RBC Hgb Hct MCV MCH MCHC RDW Plt Count MPV Absolute Neuts (auto) Neutrophils % Lymphocytes % Monocytes % Eosinophils % Basophils % Sodium Potassium Chloride Carbon Dioxide Anion Gap BUN Creatinine Est GFR (CKD-EPI)AfAm Est GFR (CKD-EPI)NonAf POC Glucometer 117 160 117 Random Glucose Lactic Acid Calcium Total Bilirubin AST ALT Alkaline Phosphatase Creatine Kinase Troponin I Total Protein Albumin Lipase Urine Color Urine Appearance Urine pH Urine Protein Urine Glucose (UA) Urine Ketones Urine Blood Urine Nitrite Urine Bilirubin Urine Urobilinogen Ur Leukocyte Esterase COVID-19 (UMAIR) NOT DETECTED HOSPITAL COURSE: Date of Admission:04/07/20 Date of Discharge: 04/11/20 Minutes to complete discharge: 40 Discharge Summary Problems reviewed: Yes Reason For Visit: SMALL BOWEL OBSTRUCTION Current Active Problems Encounter for screening laboratory testing for COVID-19 virus (Acute) Small bowel obstruction (Acute) Procedures: Principal: CT abdomen and pelvis 04/07/2020. IMPRESSION: Distal small bowel obstruction. Thickened mildly dilated distal small bowel loops especially with mural thickening and edema of the terminal ileum as described. Etiology could be enteritis either inflammatory or infectious and less likely ischemic. No definitive obstructing lesion identified but cannot be totally excluded.Reported By: Jamison Rangel MD 04/07/20 1455. . KUB/Abdomen Flat Plate 04/07/2020. Impression: NG tube tip in stomach. Small bowel obstruction as noted on CT from 1356 hours. Correlation and follow-up recommended. Reported By: Jaime Shepherd MD 04/07/20 1727. . KUB/Abdomen Flat Plate 04/08/2020. Impression : No sign of a bowel obstruction at this time. No sign of free air pneumatosis. NG tube tip in stomach. Scoliosis with convexity to the left. Clear lung bases. Correlation recommended. If symptoms persist, further imaging with a follow-up CT scan is suggested. Reported By: Jaime Shepherd MD 04/08/20 0810. Other Procedures: EKG 04/07/20 ST 112bpm. Hospital Course: This is a 89 y/o female with a significant PMHx of recurrent SBOs, HTN, Hypothyroidism, Type II NIDDM, OA. Who presents to the ED with sharp lower abdominal pain started yesterday, worse today. She reports that the pain is similar to her prior obstructions. Patient reports having loose diarrhea yesterday, nothing today. She reports that her appetite has been poor since her prior obstructions. She reports drinking liquids today nothing solid, last meal- sandwich yesterday. Patient denies fever, chills, cough, SOB, SARMIENTO, dizziness, CP, palpitations, N/V, hematochezia, melena, hematuria, dysuria. Patient denies sick contacts or recent travel. In ED, CT abd/pel showed SBO and NGT placed. Patient made NPO and was fluid resuscitated. General surgery was consulted and patient closely monitored along with serial abdominal exams. On 04/10, her diet was progressed to solid. On 04/11, pt continued to tolerate solids and had moderate size bowel movement. She denies abdominal pain. Pt deemed stable for discharge home. She had an appointment with Dr. iPper on 05/14 and an appointment will be scheduled with Dr. Jeffrey for follow up. Health Concerns: PATIENT EDUCATION: A small bowel obstruction occurs when part or all of the small intestine (bowel) is blocked. As a result, digestive contents cant move through the bowel and out of the body correctly. Treatment is needed right away to remove the blockage. This can ease painful symptoms. It can also prevent serious problems, such as tissue or bursting (rupture) of the small bowel. Without treatment, a small bowel obstruction can be fatal. Causes of small bowel obstruction A small bowel obstruction can be caused by: Scar tissue (adhesions). These may form after belly (abdominal) surgery or an infection. Hernia. A hernia is when an organ pushes through a weak spot or tear in the abdomen wall. Part of the small bowel can push out and be seen as a bulge under the belly. Hernias can also occur internally. Certain health problems. These include when part of the bowel slides inside another part (intussusception). Other causes include irritable bowel disease such as Crohns disease, and inflammation and sores in the intestine (ulcerative colitis). Abnormal tissue growths (tumors). These can form on the inside or outside of the small bowel. They are usually due to cancer. Symptoms of small bowel obstruction Common symptoms include: Belly cramping and pain Belly swelling and bloating Upset stomach (nausea) and vomiting Can't pass gas Can't pass stool (constipation) Diarrhea When to call your healthcare provider Call your provider right away if you have any of the following: Severe pain (call 911) Belly swelling or cramping that wont go away Cant pass stool or gas Nausea or vomiting (especially if the vomit looks or smells like stool) [email or web address] Condition: Good - Instructions Diet, Activity, Other Instructions: Appointment with Dr. Galo Jeffrey [address] [place], [address] Russell Piper -- May 14 Address: [address] [place] [address] Referrals: Russell Piper MD [Primary Care Provider] - Disposition: HOME - Home Medications Comprehensive Discharge Medication List: Ambulatory Orders Aspirin [Aspir-Low] 81 mg PO DAILY 11/07/14 Multivitamin [Daily Vitamin] 1 each PO DAILY tablet 11/07/14 Atorvastatin Ca [Lipitor] 10 mg PO HS 12/07/16 Levothyroxine [Synthroid -] 25 mcg PO DAILY 12/07/16 metFORMIN HCL [Glucophage -] 500 mg PO BID@0700,1630 tablet 07/06/18 Cholecalciferol (Vitamin D3) [Vitamin D3] 2,000 unit PO DAILY 04/07/20 Prescription Drug Monitoring Program (I-STOP) results: I-STOP not reviewed This patient is new to me today: Yes Date on this admission: 04/11/20 Emergency Visit: Yes ED Registration Date: 04/07/20 Care time: The patient presented to the Emergency Department on the above date and was hospitalized for further evaluation of their emergent condition. Critical Care patient: No - Discharge Referral Referred to [facility] Med P.C.: No Physician Referral: Russell Piper MD (Int Med)
[2020-04-11 13:56] VITALS: BP 114/74; PULSE 92; TEMP 98.6
--- NOTE | 2020-04-11 14:27 | PN ---
Physical Exam: SUBJECTIVE: Patient seen and examined at bedside, passing flatus, no BM yet, VSS. OBJECTIVE: Vital Signs Period Temp Pulse Resp BP Sys/Contreras Pulse Ox Last 24 Hr 97.3 F-98.6 F 67-92 18-18 99-128/48-79 98-100 GENERAL: Calm, elderly female, NAD, AAox3 HEENT NC/AT, EOMI, neck supple, dry MM LUNGS: CTAB, no crackles HEART: Regular rate and rhythm, S1, S2 without murmur, rub or gallop. ABDOMEN: Grossly soft, mildly tender in epigastrum, no guarding, BS++ EXTREMITIES: 2+ pulses, warm, well-perfused, no edema. NEUROLOGICAL: Cranial nerves II through XII grossly intact. Normal speech, gait not observed. PSYCH: Normal mood, normal affect. SKIN: Warm, dry, normal turgor, no rashes or lesions noted Laboratory Results - last 24 hr 04/10/20 04/11/20 04/11/20 20:27 06:53 11:55 POC Glucometer 160 117 146 Active Medications Generic Name Dose Route Start Last Admin Trade Name Samanq PRN Reason Stop Dose Admin Aspirin 81 mg 04/10/20 10:00 04/11/20 09:46 Ecotrin - PO 81 mg DAILY KAR Administration Atorvastatin Calcium 10 mg 04/09/20 22:00 04/10/20 21:47 Lipitor - PO 10 mg HS KAR Administration Enoxaparin Sodium 40 mg 04/08/20 10:00 04/11/20 09:47 Lovenox - SQ 40 mg DAILY KAR Administration Dextrose/Sodium Chloride 1,000 mls @ 42 mls/hr 04/07/20 21:15 04/10/20 21:47 D5-1/2ns - IV Not Given ASDIR KAR Insulin Aspart 1 vial 04/08/20 11:00 04/11/20 12:02 Novolog Vial Sliding Scale - SQ Not Given TIDAC [facility] Protocol Levothyroxine Sodium 25 mcg 04/10/20 07:00 04/11/20 06:50 Synthroid - PO 25 mcg DAILY@0700 KAR Administration Lisinopril 10 mg 04/10/20 10:00 04/11/20 09:46 Prinivil PO 10 mg DAILY KAR Administration ASSESSMENT/PLAN: 89 F SBO (improving) HTN HLD Hypothyroidism Plan: COnt. Clear liquid diet Cont. IVF, follow Na Cont. BP meds, Synthroid, check TFTs Surgery following DVT ppx: Lovenox SC Visit type - Emergency Visit Emergency Visit: Yes ED Registration Date: 04/07/20 Care time: The patient presented to the Emergency Department on the above date and was hospitalized for further evaluation of their emergent condition. - New Patient This patient is new to me today: Yes Date on this admission: 04/11/20 - Critical Care Critical Care patient: No - Discharge Referral Referred to [facility] Med P.C.: No - Medication Review Med list reviewed for High Risk Meds patients 65 and older: Yes
== END 2020-04-11 15:00 | disposition home or self-care (01) | DRG 390 ==
LOC: FER 13:14 → FM/S 16:14
PROVIDERS: ADMIT Student in an Organized Health Care Education/Training Program; ATTEND Nurse Practitioner Family
PROC: 0D9670Z Drainage of Stomach with Drainage Device, Via Natural or Artificial Opening (ICD-10-PCS; principal; 2020-04-08)
PROC: 0DP6X0Z Removal of Drainage Device from Stomach, External Approach (ICD-10-PCS; 2020-04-09)
DX: K56.609 Unspecified intestinal obstruction, unspecified as to partial versus complete obstruction (principal); E03.9 Hypothyroidism, unspecified; E11.9 Type 2 diabetes mellitus without complications; Z88.0 Allergy status to penicillin; E66.9 Obesity, unspecified; E78.5 Hyperlipidemia, unspecified; Z79.84 Long term (current) use of oral hypoglycemic drugs; Z68.29 Body mass index [BMI] 29.0-29.9, adult
CPT/HCPCS: 36415; 74018-TC-FY; 74019-TC-FY; 74177-TC; 80048; 80053; 81003; 82550; 82962; 83605; 83690; 84484; 85025; 87086; 93005; 99285-25; J0131; Q9967; U0003

== ENCOUNTER 2020-08-04 00:54 | Inpatient (IN) | payer OTHER ==
[2020-08-04] MEDS ORDERED: SODIUM CHLORIDE 1,000 ML IV ONE (01:27)
[2020-08-04] MEDS ORDERED: ONDANSETRON 4 MG/2 ML VIAL IVPB ONE (01:39)
[2020-08-04] MEDS ORDERED: morphine CARPU-JECT 2 MG/1 ML DISP.SYRIN IVPUSH ONE (01:40)
[2020-08-04] MEDS ORDERED: morphine SULFATE 4 MG/ML VIAL ONE (01:44)
[2020-08-04] MEDS ORDERED: ONDANSETRON 4 MG/2 ML VIAL ONE (01:44)
[2020-08-04 02:41] LABS: BASO % 0.5 % (0-2.0); EOS % 0.6 % (0-4.5); HEMATOCRIT 36.3 % (32.4-45.2); HEMOGLOBIN 11.7 GM/dL (10.7-15.3); LYMPH % 9.2 % (8-40); MCHC 32.2 g/dl (32.0-36.0); MEAN CELL VOLUME 80.9 fl (80-96); MEAN PLT VOLUME 8.6 fl (7.5-11.1); MONO % 4.9 % (3.8-10.2); NEUT % 84.8 % (42.8-82.8); PLATELET COUNT 483 K/MM3 (134-434); RBC 4.49 M/mm3 (3.60-5.2); RDW 16.1 % (11.6-15.6); WHITE BLOOD COUNT 13.1 K/mm3 (4.0-10.0)
[2020-08-04 03:09] LABS: CALCIUM 9.6 mg/dL (8.5-10.1)
[2020-08-04 03:10] LABS: ALBUMIN 3.6 g/dl (3.4-5.0); BLOOD UREA NITROGEN 24.6 mg/dL (7-18)
[2020-08-04 03:12] LABS: CREATININE 1.1 mg/dL (0.55-1.3)
[2020-08-04 03:14] LABS: BILIRUBIN,TOTAL 0.5 mg/dL (0.2-1); TOT PROT 7.5 g/dl (6.4-8.2)
[2020-08-04] MEDS ORDERED: ONDANSETRON 4 MG/2 ML VIAL IVPUSH PRN (05:12)
[2020-08-04] MEDS ORDERED: SODIUM CHLORIDE 1,000 ML IV SCH (05:15)
[2020-08-04 06:55] VITALS: BMI 30.2
[2020-08-04] MEDS: ACETAMINOPHEN 1000 MG/100 ML BAG IVPB PRN ×3 (07:47→21:19)
[2020-08-04] MEDS ORDERED: hydrALAZINE HCL 20 MG/ML VIAL IVPUSH PRN (09:23)
[2020-08-04 10:00] LABS: EPITHELIAL CELLS FEW /hpf
[2020-08-04 11:03] LABS: BASO % 1.7 % (0-2.0); EOS % 0.5 % (0-4.5); HEMATOCRIT 35.3 % (32.4-45.2); LYMPH % 8.6 % (8-40); MCH 25.8 pg (25.7-33.7); MCHC 31.2 g/dl (32.0-36.0); MEAN CELL VOLUME 82.7 fl (80-96); MONO % 8.4 % (3.8-10.2); NEUT % 80.8 % (42.8-82.8); PLATELET COUNT 485 K/MM3 (134-434); RBC 4.26 M/mm3 (3.60-5.2); RDW 14.7 % (11.6-15.6); WHITE BLOOD COUNT 10.4 K/mm3 (4.0-10.8)
[2020-08-04 11:10] LABS: CALCIUM 8.8 mg/dl (8.5-10); MAGNESIUM 1.5 mg/dL (1.8-2.4); PHOSPHOROUS 3.1 mg/dl (2.5-4.9)
[2020-08-04 12:24] LABS: ERYTHROCYTE SEDIMENTATION RATE 29 mm/hr (0-30)
[2020-08-04] MEDS: LEVOTHYROXINE SODIUM 100 MCG VIAL IVPUSH SCH (13:23)
[2020-08-04] MEDS ORDERED: MAGNESIUM SULF 50% (8.12 MEQ/2 ML-1 GM VIAL) IVPB ONE (13:36)
[2020-08-04] MEDS: HEPARIN NA (PORCINE) 5,000 UNITS/ML 1ML VIAL SQ SCH ×2 (14:37→21:18)
[2020-08-04] MEDS ORDERED: IOHEXOL 180 MG/1 ML ML IJ ONE (15:00)
[2020-08-04] MEDS ORDERED: DEXTROSE 5%-NORMAL SALINE 1,000 ML IV SCH (18:45)
[2020-08-05] MEDS: HEPARIN NA (PORCINE) 5,000 UNITS/ML 1ML VIAL SQ SCH (06:08)
[2020-08-05 08:13] LABS: EOS % 1.9 % (0-4.5); HEMATOCRIT 32.7 % (32.4-45.2); HEMOGLOBIN 10.4 GM/dl (10.7-15.3); LYMPH % 20.6 % (8-40); MCHC 31.8 g/dl (32.0-36.0); MEAN CELL VOLUME 81.9 fl (80-96); MONO % 11.8 % (3.8-10.2); NEUT % 61.9 % (42.8-82.8); PLATELET COUNT 462 K/MM3 (134-434); RBC 3.99 M/mm3 (3.60-5.2); RDW 14.9 % (11.6-15.6); WHITE BLOOD COUNT 5.7 K/mm3 (4.0-10.8)
[2020-08-05 08:28] LABS: CALCIUM 8.2 mg/dl (8.5-10); CREATININE 0.8 mg/dl (0.55-1.3); MAGNESIUM 1.8 mg/dL (1.8-2.4)
[2020-08-05] MEDS: LEVOTHYROXINE SODIUM 100 MCG VIAL IVPUSH SCH (09:20)
[2020-08-05] MEDS: INSULIN SLIDING SCALE (NOVOLOG) 1 VIAL SQ SCH ×3 (12:58→21:33)
[2020-08-05] MEDS: SODIUM CHLORIDE 1,000 ML IV SCH (14:46)
[2020-08-05] MEDS ORDERED: ATORVASTATIN CA 10 MG TABLET (FP) PO SCH (22:00)
[2020-08-05] MEDS: SODIUM PHOSPHATE/NA BIPHOS 133 ML ENEMA RC SCH ×2 (22:00→22:30)
[2020-08-06] MEDS: INSULIN SLIDING SCALE (NOVOLOG) 1 VIAL SQ SCH ×4 (06:38→21:18)
[2020-08-06] MEDS: LEVOTHYROXINE SODIUM 100 MCG VIAL IVPUSH SCH (09:22)
[2020-08-06] MEDS: ENOXAPARIN NA (PORCINE) 40 MG/0.4 ML DISP.SYRIN SQ SCH (13:54)
[2020-08-06] MEDS: SODIUM CHLORIDE 1,000 ML IV SCH (13:57)
[2020-08-07] MEDS: INSULIN SLIDING SCALE (NOVOLOG) 1 VIAL SQ SCH ×2 (07:49→11:51)
[2020-08-07 08:06] LABS: CALCIUM 8.5 mg/dl (8.5-10); CREATININE 0.6 mg/dl (0.55-1.3); MAGNESIUM 1.5 mg/dL (1.8-2.4); PHOSPHOROUS 2.7 mg/dl (2.5-4.9)
[2020-08-07] MEDS ORDERED: LISINOPRIL 10 MG TABLET PO SCH (10:15)
[2020-08-07] MEDS ORDERED: MAGNESIUM SULF 50% (8.12 MEQ/2 ML-1 GM VIAL) IVPB ONE (10:15)
[2020-08-07] MEDS ORDERED: ASPIRIN COATED 81 MG TABLET.EC PO SCH (10:15)
[2020-08-07] MEDS: ENOXAPARIN NA (PORCINE) 40 MG/0.4 ML DISP.SYRIN SQ SCH (10:35)
[2020-08-07] MEDS: LEVOTHYROXINE SODIUM 100 MCG VIAL IVPUSH SCH (10:46)
[2020-08-07 14:03] VITALS: BP 134/49; PULSE 83; TEMP 98.8
[2020-08-08] MEDS ORDERED: LEVOTHYROXINE NA 25 MCG TABLET (FP) PO SCH (10:00)
== END 2020-08-07 14:44 | disposition home or self-care (01) | DRG 390 ==
LOC: FER 00:54 → FM/S 05:40
PROVIDERS: ADMIT Hospitalist; ATTEND Nurse Practitioner Acute Care
PROC: 0D9670Z Drainage of Stomach with Drainage Device, Via Natural or Artificial Opening (ICD-10-PCS; principal; 2020-08-04)
DX: K56.609 Unspecified intestinal obstruction, unspecified as to partial versus complete obstruction (principal); E03.9 Hypothyroidism, unspecified; I10 Essential (primary) hypertension; E11.9 Type 2 diabetes mellitus without complications; K59.09 Other constipation; M54.5 Low back pain; E66.9 Obesity, unspecified; Z68.30 Body mass index [BMI] 30.0-30.9, adult
CPT/HCPCS: 36415; 71045-TC-FY; 74018-TC-FY; 74019-TC-FY; 74177-TC; 80048; 80053; 81003; 81015; 82962; 83605; 83735; 84100; 85025; 85651; 86140; 87086; 93005; 97161-GP; 99285-25; C9803; J0131; J1644; Q9967; U0003

== ENCOUNTER 2020-11-17 07:25 | Inpatient (IN) | payer OTHER ==
[2020-11-17] MEDS ORDERED: morphine CARPU-JECT 8 MG/1 ML DISP.SYRIN IVPUSH ONE ×2 (07:40→12:28)
[2020-11-17] MEDS ORDERED: ONDANSETRON 4 MG/2 ML VIAL IVPUSH ONE ×2 (07:40→12:28)
[2020-11-17] MEDS ORDERED: ONDANSETRON 4 MG/2 ML VIAL ONE ×2 (07:49→12:44)
[2020-11-17] MEDS ORDERED: morphine SULFATE 4 MG/ML VIAL ONE ×2 (07:49→12:44)
[2020-11-17 08:17] LABS: HEMATOCRIT 39.3 % (32.4-45.2); HEMOGLOBIN 12.7 GM/dl (10.7-15.3); MCH 26.5 pg (25.7-33.7); MCHC 32.3 g/dl (32.0-36.0); MEAN CELL VOLUME 81.9 fl (80-96); MEAN PLT VOLUME 8.3 fl (7.5-11.1); PLATELET COUNT 538 K/MM3 (134-434); RDW 15.5 % (11.6-15.6)
[2020-11-17] MEDS: LACTATED RINGERS SOLUTION 1,000 ML/1,000 ML INFUS.BAG IV SCH (08:25)
[2020-11-17 08:36] LABS: ACTIVATED PTT 14.3 SECONDS (25.2-36.5)
[2020-11-17 08:40] LABS: INR 1.01 (0.82-1.09); PROTHROMBIN TIME (PATIENT) 11.3 SEC (10.2-13.0)
[2020-11-17 08:43] LABS: BILIRUBIN,TOTAL 0.6 mg/dl (0.2-1); CALCIUM 9.9 mg/dl (8.5-10); TOT PROT 7.5 g/dl (6.4-8.2)
[2020-11-17 09:12] LABS: PLATELET ESTIMATE SLT INCREASE
[2020-11-17 10:49] LABS: LIPASE 390 U/L (73-393)
[2020-11-17 11:30] LABS: EPITHELIAL CELLS FEW /hpf
[2020-11-17 16:00] VITALS: BMI 29.2
[2020-11-17] MEDS: INSULIN SLIDING SCALE (NOVOLOG) 1 VIAL SQ SCH ×2 (16:33→21:26)
[2020-11-17] MEDS: METOCLOPRAMIDE HCL INJECTION 10 MG/2 ML VIAL IVPUSH PRN (17:39)
[2020-11-17] MEDS: HEPARIN NA (PORCINE) 5,000 UNITS/ML 1ML VIAL SQ SCH (21:26)
[2020-11-17] MEDS ORDERED: ATORVASTATIN CA 10 MG TABLET (FP) PO SCH (22:00)
[2020-11-18] MEDS: LEVOTHYROXINE NA 25 MCG TABLET (FP) PO SCH ×2 (06:06→06:15)
[2020-11-18] MEDS: INSULIN SLIDING SCALE (NOVOLOG) 1 VIAL SQ SCH ×4 (06:10→21:34)
[2020-11-18 08:19] LABS: HEMATOCRIT 30.3 % (32.4-45.2); MCH 26.9 pg (25.7-33.7); MEAN CELL VOLUME 81.4 fl (80-96); MEAN PLT VOLUME 8.1 fl (7.5-11.1); PLATELET COUNT 425 K/MM3 (134-434); RBC 3.72 M/mm3 (3.60-5.2); RDW 14.9 % (11.6-15.6); WHITE BLOOD COUNT 6.2 K/mm3 (4.0-10.8)
[2020-11-18] MEDS: LACTATED RINGERS SOLUTION 1,000 ML/1,000 ML INFUS.BAG IV SCH (08:24)
[2020-11-18 08:25] LABS: CALCIUM 8.8 mg/dl (8.5-10); CREATININE 0.9 mg/dl (0.55-1.3); MAGNESIUM 1.4 mg/dL (1.8-2.4); PHOSPHOROUS 2.9 mg/dl (2.5-4.9)
[2020-11-18] MEDS: METOCLOPRAMIDE HCL INJECTION 10 MG/2 ML VIAL IVPUSH PRN (08:25)
[2020-11-18] MEDS ORDERED: MAGNESIUM SULF 50% (8.12 MEQ/2 ML-1 GM VIAL) IVPB ONE (08:28)
[2020-11-18] MEDS ORDERED: MAGNESIUM SULFATE IN WATER 2 GM/50 ML IVPB IVPB ONE (08:30)
[2020-11-18] MEDS: HEPARIN NA (PORCINE) 5,000 UNITS/ML 1ML VIAL SQ SCH ×2 (09:18→21:30)
[2020-11-18] MEDS ORDERED: LISINOPRIL 10 MG TABLET PO SCH (10:00)
[2020-11-18] MEDS ORDERED: ASPIRIN COATED 81 MG TABLET.EC PO SCH (10:00)
[2020-11-19] MEDS: LEVOTHYROXINE NA 25 MCG TABLET (FP) PO SCH (06:46)
[2020-11-19] MEDS: INSULIN SLIDING SCALE (NOVOLOG) 1 VIAL SQ SCH ×3 (06:47→22:24)
[2020-11-19 07:52] LABS: BASO % 0.6 % (0-2.0); EOS % 2.1 % (0-4.5); HEMATOCRIT 30.4 % (32.4-45.2); LYMPH % 22.8 % (8-40); MCH 26.6 pg (25.7-33.7); MCHC 32.8 g/dl (32.0-36.0); MEAN PLT VOLUME 7.6 fl (7.5-11.1); NEUT % 64.5 % (42.8-82.8); PLATELET COUNT 424 K/MM3 (134-434); RBC 3.75 M/mm3 (3.60-5.2); RDW 14.8 % (11.6-15.6); WHITE BLOOD COUNT 5.6 K/mm3 (4.0-10.8)
[2020-11-19] MEDS: LACTATED RINGERS SOLUTION 1,000 ML/1,000 ML INFUS.BAG IV SCH (08:00)
[2020-11-19 08:16] LABS: CALCIUM 8.3 mg/dl (8.5-10); CREATININE 0.7 mg/dl (0.55-1.3); MAGNESIUM 1.7 mg/dL (1.8-2.4)
[2020-11-19] MEDS ORDERED: MAGNESIUM SULF 50% (8.12 MEQ/2 ML-1 GM VIAL) IVPB ONE (09:08)
[2020-11-19] MEDS ORDERED: MAGNESIUM SULFATE IN WATER 2 GM/50 ML IVPB IVPB ONE (09:15)
[2020-11-19] MEDS: HEPARIN NA (PORCINE) 5,000 UNITS/ML 1ML VIAL SQ SCH ×2 (09:52→21:32)
[2020-11-20] MEDS: LEVOTHYROXINE NA 25 MCG TABLET (FP) PO SCH (06:37)
[2020-11-20] MEDS: INSULIN SLIDING SCALE (NOVOLOG) 1 VIAL SQ SCH ×4 (06:37→21:31)
[2020-11-20 08:12] LABS: BASO % 0.4 % (0-2.0); EOS % 2.6 % (0-4.5); HEMATOCRIT 28.7 % (32.4-45.2); HEMOGLOBIN 9.5 GM/dl (10.7-15.3); LYMPH % 23.9 % (8-40); MCH 26.9 pg (25.7-33.7); MCHC 33.1 g/dl (32.0-36.0); MEAN CELL VOLUME 81.3 fl (80-96); MEAN PLT VOLUME 8.1 fl (7.5-11.1); MONO % 8.2 % (3.8-10.2); NEUT % 64.9 % (42.8-82.8); PLATELET COUNT 375 K/MM3 (134-434); RBC 3.53 M/mm3 (3.60-5.2); RDW 14.6 % (11.6-15.6); WHITE BLOOD COUNT 6.3 K/mm3 (4.0-10.8)
[2020-11-20 08:34] LABS: ALBUMIN 2.5 g/dl (3.4-5.0); BILIRUBIN,TOTAL 1.1 mg/dl (0.2-1); CALCIUM 8.4 mg/dl (8.5-10); CREATININE 0.7 mg/dl (0.55-1.3); MAGNESIUM 1.6 mg/dL (1.8-2.4); TOT PROT 5.2 g/dl (6.4-8.2)
[2020-11-20] MEDS: HEPARIN NA (PORCINE) 5,000 UNITS/ML 1ML VIAL SQ SCH ×2 (10:59→21:31)
[2020-11-20] MEDS ORDERED: MAGNESIUM SULF 50% (8.12 MEQ/2 ML-1 GM VIAL) IVPB ONE (12:21)
[2020-11-20] MEDS ORDERED: MAGNESIUM SULFATE IN WATER 2 GM/50 ML IVPB IVPB ONE (12:30)
[2020-11-20] MEDS ORDERED: ATORVASTATIN CA 10 MG TABLET (FP) PO SCH (22:00)
[2020-11-20] MEDS ORDERED: LOCK ITEM NR ONE (23:26)
[2020-11-21] MEDS: LEVOTHYROXINE NA 25 MCG TABLET (FP) PO SCH (06:21)
[2020-11-21] MEDS: INSULIN SLIDING SCALE (NOVOLOG) 1 VIAL SQ SCH ×2 (06:38→11:00)
[2020-11-21 08:03] LABS: CALCIUM 9.1 mg/dl (8.5-10); CREATININE 0.7 mg/dl (0.55-1.3); MAGNESIUM 1.9 mg/dL (1.8-2.4)
[2020-11-21 09:40] VITALS: PULSE 81
[2020-11-21] MEDS ORDERED: LISINOPRIL 10 MG TABLET PO SCH (10:00)
[2020-11-21] MEDS: HEPARIN NA (PORCINE) 5,000 UNITS/ML 1ML VIAL SQ SCH (10:24)
[2020-11-21 14:02] VITALS: BP 136/58; TEMP 98.5
== END 2020-11-21 16:33 | disposition home or self-care (01) | DRG 390 ==
LOC: SUPCPDRO 07:25 → FER 07:25 → FM/S 14:10
PROVIDERS: ADMIT Internal Medicine; ATTEND Nurse Practitioner Acute Care
PROC: 0D9670Z Drainage of Stomach with Drainage Device, Via Natural or Artificial Opening (ICD-10-PCS; principal; 2020-11-17)
DX: K56.600 Partial intestinal obstruction, unspecified as to cause (principal); I10 Essential (primary) hypertension; E78.5 Hyperlipidemia, unspecified; E03.9 Hypothyroidism, unspecified; K57.90 Diverticulosis of intestine, part unspecified, without perforation or abscess without bleeding; E11.9 Type 2 diabetes mellitus without complications; E83.42 Hypomagnesemia; K63.89 Other specified diseases of intestine
CPT/HCPCS: 36415; 71045-TC-FY; 74018-TC-FY; 74019-TC-FY; 74177-TC; 80048; 80053; 81003; 81015; 82962; 83690; 83735; 84100; 84443; 84484; 85025; 85027; 85610; 85730; 86850; 86900; 86901; 93005; 97116-GP; 97162-GP; 99285-25; C9803; J1644; Q9967; U0003; U0005

== ENCOUNTER 2021-06-25 08:08 | Day surgery (SDC) | payer OTHER ==
[2021-06-19 14:44] VITALS: BMI 28.3
[2021-06-25] MEDS ORDERED: PROPOFOL 20 ML ONE (09:42)
[2021-06-25 11:05] VITALS: BP 122/60; PULSE 85
[2021-06-25 11:07] VITALS: TEMP 97.7
== END 2021-06-25 11:07 | disposition home or self-care (01) ==
LOC: FASU 08:08
PROVIDERS: ATTEND Orthopaedic Surgery Hand Surgery
PROC: 01N50ZZ Release Median Nerve, Open Approach (ICD-10-PCS; principal; 2021-06-25 09:55)
DX: G56.01 Carpal tunnel syndrome, right upper limb (principal)
CPT/HCPCS: 82962

== ENCOUNTER 2021-08-21 08:22 | Emergency (ER) | payer OTHER ==
[2021-08-21 08:31] VITALS: BMI 28.3
[2021-08-21] MEDS ORDERED: IBUPROFEN 400 MG TABLET (FP) PO ONE ×2 (09:31→09:38)
[2021-08-21 09:54] LABS: ACTIVATED PTT 25.3 SECONDS (25.2-36.5)
[2021-08-21 09:56] LABS: ALBUMIN 3.9 g/dl (3.4-5.0); BILIRUBIN,TOTAL 0.9 mg/dl (0.2-1); CALCIUM 9.6 mg/dl (8.5-10); CREATININE 0.8 mg/dl (0.55-1.3); TOT PROT 7.4 g/dl (6.4-8.2); URIC ACID 9.1 mg/dl (2.6-7.2)
[2021-08-21 09:58] LABS: INR 0.9 (0.83-1.09)
[2021-08-21 10:58] LABS: BASO % 0.9 % (0-2.0); EOS % 2.3 % (0-4.5); HEMATOCRIT 37.6 % (32.4-45.2); HEMOGLOBIN 12.1 GM/dL (10.7-15.3); MCH 26.8 pg (25.7-33.7); MCHC 32.1 g/dl (32.0-36.0); MEAN CELL VOLUME 83.4 fl (80-96); MONO % 7.1 % (3.8-10.2); NEUT % 64.7 % (42.8-82.8); PLATELET COUNT 413 10^3/uL (134-434); RDW 14.5 % (11.6-15.6); WHITE BLOOD COUNT 7.4 K/mm3 (4.0-10.0)
[2021-08-21 12:38] LABS: ERYTHROCYTE SEDIMENTATION RATE 40 mm/hr (0-30)
[2021-08-21 13:58] VITALS: BP 137/66; PULSE 80; TEMP 98.6
== END 2021-08-21 14:00 | disposition home or self-care (01) ==
LOC: FER 08:22
DX: S52.611A Displaced fracture of right ulna styloid process, initial encounter for closed fracture (principal); X50.0XXA Overexertion from strenuous movement or load, initial encounter
CPT/HCPCS: 36415; 73090-TC-RT-FY; 73110-TC-RT-FY; 80053; 84550; 85025; 85610; 85651; 85730; 86140; 99285-25

== ENCOUNTER 2021-08-23 06:01 | Emergency (ER) | payer OTHER ==
[2021-08-23] MEDS ORDERED: FAMOTIDINE 20 MG/50 ML IVPB 20 MG/50 ML MG IVPB ONE (06:03)
[2021-08-23] MEDS ORDERED: methylPREDNISolone NA SUCC 125 MG/2 ML VIAL IVPUSH ONE (06:03)
[2021-08-23] MEDS ORDERED: methylPREDNISolone NA SUCC 125 MG/2 ML VIAL ONE (06:08)
[2021-08-23 06:27] VITALS: BMI 28.3
[2021-08-23 11:07] VITALS: BP 141/76; PULSE 94; TEMP 98.3
== END 2021-08-23 14:23 | disposition home or self-care (01) ==
LOC: FER 06:01
PROC: 3E033GC Introduction of Other Therapeutic Substance into Peripheral Vein, Percutaneous Approach (ICD-10-PCS; principal; 2021-08-23)
PROC: 3E033GC Introduction of Other Therapeutic Substance into Peripheral Vein, Percutaneous Approach (ICD-10-PCS; 2021-08-23)
PROC: 3E033GC Introduction of Other Therapeutic Substance into Peripheral Vein, Percutaneous Approach (ICD-10-PCS; 2021-08-23)
DX: T78.3XXA Angioneurotic edema, initial encounter (principal)
CPT/HCPCS: 99284-25

== ENCOUNTER 2021-12-20 08:30 | Emergency (ER) | payer OTHER ==
[2021-12-20 11:02] VITALS: BP 130/51; PULSE 92; TEMP 97.8; BMI 27.4
[2021-12-20 11:32] LABS: HEMATOCRIT 34.6 % (32.4-45.2); HEMOGLOBIN 11.7 G/dL (10.7-15.3); MCH 27.6 pg (25.7-33.7); MCHC 33.9 g/dl (32.0-36.0); MEAN CELL VOLUME 81.4 fl (80-96); MEAN PLT VOLUME 7.8 fl (7.5-11.1); PLATELET COUNT 330.6 10^3/uL (134-434); RBC 4.25 10^6/uL (3.60-5.2); RDW 16.4 % (11.6-15.6); WHITE BLOOD COUNT 8.3 10^3/uL (4.0-10.8)
[2021-12-20 11:36] LABS: ALBUMIN 3.7 g/dl (3.4-5.0); BILIRUBIN,TOTAL 0.9 mg/dl (0.2-1); CALCIUM 9.6 mg/dl (8.5-10); TOT PROT 6.9 g/dl (6.4-8.2)
[2021-12-20 12:08] LABS: EPITHELIAL CELLS MODERATE /hpf
== END 2021-12-20 12:39 | disposition home or self-care (01) ==
LOC: FER 08:30
DX: N39.0 Urinary tract infection, site not specified (principal)
CPT/HCPCS: 36415; 80053; 81003; 81015; 85027; 87086; 99283-25

== ENCOUNTER 2021-12-23 01:36 | Observation (INO) | payer OTHER ==
[2021-12-23] MEDS ORDERED: ONDANSETRON 4 MG/2 ML VIAL IVPB ONE (01:45)
[2021-12-23] MEDS ORDERED: ACETAMINOPHEN 1000 MG/100 ML BAG IVPB ONE (01:46)
[2021-12-23] MEDS ORDERED: ONDANSETRON 4 MG/2 ML VIAL ONE (02:13)
[2021-12-23] MEDS ORDERED: ACETAMINOPHEN INJECTION 100 ML IVPB ONE (02:13)
[2021-12-23 03:05] LABS: VENOUS BASE EXCESS -5.4 mmol/L (-2-2); VENOUS O2 SATURATION 53.8 % (70-80); VENOUS PCO2 38.9 mmHg (38-52); VENOUS PH 7.33 (7.310-7.410)
[2021-12-23 03:15] LABS: BASO % 0.6 % (0-2.0); EOS % 1.1 % (0-4.5); HEMATOCRIT 39.6 % (32.4-45.2); HEMOGLOBIN 12.9 GM/dL (10.7-15.3); LYMPH % 24.7 % (8-40); MCH 26.6 pg (25.7-33.7); MCHC 32.6 g/dl (32.0-36.0); MEAN CELL VOLUME 81.7 fl (80-96); MONO % 7.1 % (3.8-10.2); NEUT % 66.5 % (42.8-82.8); PLATELET COUNT 413 10^3/uL (134-434); RBC 4.85 M/mm3 (3.60-5.2); WHITE BLOOD COUNT 13.4 K/mm3 (4.0-10.0)
[2021-12-23 03:17] LABS: INR 0.9 (0.83-1.09); PROTHROMBIN TIME (PATIENT) 10.3 SEC (9.7-13.0)
[2021-12-23 03:19] LABS: EPI CELLS 14 /uL (0-25.1); HYALINE CASTS 1 /uL (0-3.1); URINE APPEARANCE CLEAR; URINE BACTERIA 15 /uL (0-1359); URINE BILIRUBIN NEGATIVE (NEGATIVE); URINE COLOR YELLOW; URINE GLUCOSE (UA) NEGATIVE (NEGATIVE); URINE KETONE TRACE (NEGATIVE); URINE LEUK ESTERASE 1+ (NEGATIVE); URINE NITRITE NEGATIVE (NEGATIVE); URINE PROTEIN NEGATIVE (NEGATIVE); URINE RBC 6 /uL (0-23.9); URINE UROBILINOGEN 0.2 mg/dL (0.2-1.0); URINE WBC 48 /uL (0-25.8)
[2021-12-23 03:25] LABS: CALCIUM 10.1 mg/dL (8.5-10.1)
[2021-12-23 03:27] LABS: BLOOD UREA NITROGEN 25.3 mg/dL (7-18)
[2021-12-23 03:29] LABS: CREATININE 1.2 mg/dL (0.55-1.3)
[2021-12-23 03:31] LABS: BILIRUBIN,TOTAL 0.8 mg/dL (0.2-1); LACTIC ACID 2.1 mmol/L (0.4-2.0)
[2021-12-23 07:28] LABS: LACTIC ACID 2.3 mmol/L (0.4-2.0)
[2021-12-23] MEDS ORDERED: ACETAMINOPHEN 1000 MG/100 ML BAG IVPB PRN (08:00)
[2021-12-23] MEDS ORDERED: ONDANSETRON 4 MG/2 ML VIAL IVPUSH PRN (08:00)
[2021-12-23] MEDS ORDERED: cefTRIAXone SODIUM 1 GM VIAL ONE (11:19)
[2021-12-23] MEDS ORDERED: DEXTROSE 5%-WATER - 50 ML IVPB ONE (11:19)
[2021-12-23] MEDS: CEFTRIAXONE 1 GM in DEXTROSE 5%-WATER - 50 ML IVPB SCH (11:24)
[2021-12-23] MEDS: SODIUM CHLORIDE 1,000 ML IV SCH (11:27)
[2021-12-23] MEDS: INSULIN SLIDING SCALE (NOVOLOG) 1 VIAL SQ SCH ×2 (16:49→22:20)
[2021-12-23 17:09] VITALS: BMI 30.9
[2021-12-23] MEDS ORDERED: HEPARIN NA (PORCINE) 5,000 UNITS/ML 1ML VIAL SQ SCH (18:00)
[2021-12-24] MEDS: SODIUM CHLORIDE 1,000 ML IV SCH ×3 (00:17→22:23)
[2021-12-24] MEDS: INSULIN SLIDING SCALE (NOVOLOG) 1 VIAL SQ SCH ×4 (06:10→22:22)
[2021-12-24 08:43] LABS: BASO % 0.5 % (0-2.0); EOS % 2.9 % (0-4.5); HEMATOCRIT 32.4 % (32.4-45.2); HEMOGLOBIN 10.7 GM/dL (10.7-15.3); LYMPH % 27.5 % (8-40); MCH 26.9 pg (25.7-33.7); MEAN CELL VOLUME 81.6 fl (80-96); MEAN PLT VOLUME 7.4 fl (7.5-11.1); MONO % 8.9 % (3.8-10.2); NEUT % 60.2 % (42.8-82.8); PLATELET COUNT 285 10^3/uL (134-434); RBC 3.97 M/mm3 (3.60-5.2); RDW 16.1 % (11.6-15.6); WHITE BLOOD COUNT 5.6 K/mm3 (4.0-10.0)
[2021-12-24 09:11] LABS: BLOOD UREA NITROGEN 11.4 mg/dL (7-18)
[2021-12-24 09:13] LABS: CREATININE 0.8 mg/dL (0.55-1.3)
[2021-12-24 09:16] LABS: CALCIUM 8.5 mg/dL (8.5-10.1)
[2021-12-24] MEDS ORDERED: cefTRIAXone SODIUM 1 GM VIAL ONE (10:26)
[2021-12-24] MEDS ORDERED: DEXTROSE 5%-WATER - 50 ML IVPB ONE (10:26)
[2021-12-24] MEDS: CEFTRIAXONE 1 GM in DEXTROSE 5%-WATER - 50 ML IVPB SCH (10:31)
[2021-12-24] MEDS ORDERED: ACETAMINOPHEN 325 MG TABLET (FP) PO PRN ×2 (18:01→19:22)
[2021-12-25] MEDS: INSULIN SLIDING SCALE (NOVOLOG) 1 VIAL SQ SCH ×3 (06:02→16:22)
[2021-12-25] MEDS: SODIUM CHLORIDE 1,000 ML IV SCH (06:02)
[2021-12-25] MEDS ORDERED: LEVOTHYROXINE NA 25 MCG TABLET (FP) PO SCH (07:00)
[2021-12-25] MEDS ORDERED: cefTRIAXone SODIUM 1 GM VIAL ONE (09:52)
[2021-12-25] MEDS ORDERED: DEXTROSE 5%-WATER - 50 ML IVPB ONE (09:52)
[2021-12-25] MEDS: CEFTRIAXONE 1 GM in DEXTROSE 5%-WATER - 50 ML IVPB SCH (09:58)
[2021-12-25 11:43] LABS: BASO % 0.6 % (0-2.0); EOS % 2.3 % (0-4.5); HEMATOCRIT 38.6 % (32.4-45.2); HEMOGLOBIN 12.5 GM/dL (10.7-15.3); LYMPH % 21.4 % (8-40); MCH 26.7 pg (25.7-33.7); MCHC 32.3 g/dl (32.0-36.0); MEAN CELL VOLUME 82.5 fl (80-96); MEAN PLT VOLUME 8.5 fl (7.5-11.1); MONO % 6.7 % (3.8-10.2); PLATELET COUNT 347 10^3/uL (134-434); RBC 4.68 M/mm3 (3.60-5.2); RDW 15.9 % (11.6-15.6); WHITE BLOOD COUNT 6.9 K/mm3 (4.0-10.0)
[2021-12-25 12:08] LABS: BLOOD UREA NITROGEN 7.3 mg/dL (7-18); CALCIUM 9.2 mg/dL (8.5-10.1)
[2021-12-25 12:09] LABS: ALBUMIN 3.5 g/dl (3.4-5.0); MAGNESIUM 1.6 mg/dL (1.8-2.4)
[2021-12-25 12:11] LABS: CREATININE 0.8 mg/dL (0.55-1.3)
[2021-12-25 12:13] LABS: BILIRUBIN,TOTAL 0.4 mg/dL (0.2-1); TOT PROT 7.4 g/dl (6.4-8.2)
[2021-12-25 15:36] VITALS: BP 138/72; PULSE 81; TEMP 97.6
[2021-12-25] MEDS ORDERED: ATORVASTATIN CA 10 MG TABLET (FP) PO SCH (22:00)
[2021-12-26] MEDS ORDERED: ASPIRIN COATED 81 MG TABLET.EC PO SCH (10:00)
[2021-12-26] MEDS ORDERED: LISINOPRIL 10 MG TABLET PO SCH (10:00)
== END 2021-12-25 16:48 | disposition home or self-care (01) ==
LOC: FER 01:36 → J5S 10:55 → INTOOBSV 10:55 → UNDOADMOB 10:55 → J5S 12-25 13:30
PROVIDERS: ADMIT Hospitalist; ATTEND Nurse Practitioner Acute Care
PROC: 3E033NZ Introduction of Analgesics, Hypnotics, Sedatives into Peripheral Vein, Percutaneous Approach (ICD-10-PCS; principal; 2021-12-25)
PROC: 3E03329 Introduction of Other Anti-infective into Peripheral Vein, Percutaneous Approach (ICD-10-PCS; 2021-12-25)
DX: K56.609 Unspecified intestinal obstruction, unspecified as to partial versus complete obstruction (principal); Z87.891 Personal history of nicotine dependence; E11.9 Type 2 diabetes mellitus without complications; I10 Essential (primary) hypertension; E03.9 Hypothyroidism, unspecified; E78.5 Hyperlipidemia, unspecified; Z88.0 Allergy status to penicillin; Z88.6 Allergy status to analgesic agent; Z91.048 Other nonmedicinal substance allergy status; Z88.8 Allergy status to other drugs, medicaments and biological substances
CPT/HCPCS: 0241U-QW; 36415; 71045-TC-FY; 74018-TC-FY; 74019-TC-FY; 74177-TC; 80048; 80053; 81003; 82803; 82962; 83605; 83690; 83735; 84484; 85025; 85610; 85730; 86850; 86900; 86901; 93005; 96365; 96367; 96375; 99285-25; G0378; Q9967

== ENCOUNTER 2021-12-30 10:41 | Emergency (ER) | payer OTHER ==
[2021-12-30 11:17] VITALS: BMI 28.3
[2021-12-30] MEDS ORDERED: ACETAMINOPHEN 500 MG TABLET (FP) PO ONE (11:23)
[2021-12-30] MEDS ORDERED: ACETAMINOPHEN 500 MG TABLET (FP) ONE (11:31)
[2021-12-30 14:34] VITALS: BP 150/70; PULSE 84; TEMP 98.4
== END 2021-12-30 14:35 | disposition home or self-care (01) ==
LOC: FER 10:41
DX: M79.631 Pain in right forearm (principal); W01.0XXA Fall on same level from slipping, tripping and stumbling without subsequent striking against object, initial encounter
CPT/HCPCS: 70450-TC; 70486-TC; 71045-TC-FY; 72125-TC; 72170-TC-FY; 73090-TC-RT-FY; 99285-25